=== PATIENT | female | born 1950 | race Caucasian/White ===

== ENCOUNTER → 2018-01-01 | Outpatient (CLI) | payer MEDICARE ==
--- NOTE | 2018-01-02 08:42 | ECHOF ---
Referral Reason:R60.9 Edema, unspecified MEASUREMENTS -------- HEIGHT: 162.6 cm WEIGHT: 61.2 kg BP: 135/77 IVSd: 1.0 cm (0.6 - 1.1) LVIDd: 3.7 cm (3.9 - 5.3) LVPWd: 1.1 cm (0.6 - 1.1) IVSs: 1.1 cm LVIDs: 2.2 cm LVPWs: 1.2 cm LAESV Index (A-L): 19.92 ml/m Ao Diam: 2.0 cm (2.0 - 3.7) AV Cusp: 1.2 cm (1.5 - 2.6) LA Diam: 2.0 cm (2.7 - 3.8) MV EXCURSION: 17.310 mm (> 18.000) MV EF SLOPE: 117 mm/s (70 - 150) EPSS: 0.8 cm MV E Jonas: 1.38 m/s MV DecT: 168 ms MV A Jonas: 0.98 m/s MV E/A Ratio: 1.40 RAP: 5.00 mmHg RVSP: 24.02 mmHg FINDINGS -------- Sinus rhythm. This was a technically good study. The left ventricular size is normal. Left ventricular wall thickness is normal. Overall left vent ricular systolic function is normal with, an EF between 55 - 60 %. The right ventricle is normal in size and function. Normal LA size by volume 22+/-6 ml/m2. The right atrium is normal in size. The aortic valve is trileaflet, and appears structurally normal. No aortic stenosis or regurgitation. Moderate mitral regurgitation is present , predominately a posteriorly directed jet. Trace tricuspid regurgitation present. The right ventricular systolic pressure, as measured by Dopp ler, is 24.02mmHg. Pulmonic valve appears structurally normal. The aortic root size is normal. Normal inferior vena cava with normal inspiratory collapse consistent with estimated right atrial pre ssure of 5 mmHg. The pericardium is normal. CONCLUSIONS -------- 1. Sinus rhythm. 2. This was a technically good study. 3. The left ventricular size is normal. 4. Left ventricular wall thickness is normal. 5. Overall left ventricular systolic function is normal with, an EF between 55 - 60 %. 6. The right ventricle is normal in size and function. 7. Normal LA size by volume 22+/-6 ml/m2. 8. The right atrium is normal in size. 9. The aortic valve is trileaflet, and appears structurally normal. No aortic stenosis or regurgitati on. 10. Moderate mitral regurgitation is present. 11. , predominately a posteriorly directed jet. 12. Trace tricuspid regurgitation present. 13. The right ventricular systolic pressure, as measured by Doppler, is 24.02mmHg. 14. Pulmonic valve appears structurally normal. 15. The aortic root size is normal. 16. Normal inferior vena cava with normal inspiratory collapse consistent with estimated right atrial pressure of 5 mmHg. 17. The pericardium is normal. PALM GATHERER: Ivory Howell RDCS
== END | disposition home or self-care (01) ==
LOC: RADECHMAIN 15:07
PROVIDERS: ATTEND Family Medicine
DX: I34.0 Nonrheumatic mitral (valve) insufficiency (principal); R60.9 Edema, unspecified
CPT/HCPCS: 93306

== ENCOUNTER → 2019-04-15 | Outpatient (CLI) | payer MEDICARE ==
--- NOTE | 2019-04-19 11:33 | MM ---
Reason for exam: screening (asymptomatic). Last mammogram was performed 12 years and 3 months ago. History: Patient is postmenopausal. Physical Findings: A clinical breast exam by your physician is recommended on an annual basis and results should be correlated with mammographic findings. MG 3D Screening Mammo W/Cad Bilateral CC and MLO view(s) were taken. Prior study comparison: March 26, 2018, mammogram, performed at [facility]. March 25, 2017, mammogram, performed at [facility]. December 19, 2015, mammogram, performed at [facility]. The breast tissue is heterogeneously dense. This may lower the sensitivity of mammography. There are benign appearing round calcifications bilaterally. There is no discrete abnormality. ASSESSMENT: Benign, BI-RAD 2 RECOMMENDATION: Routine screening mammogram of both breasts in 1 year.
== END | disposition home or self-care (01) ==
LOC: RADMAMWWP 09:06
PROVIDERS: ATTEND Family Medicine
DX: Z12.31 Encounter for screening mammogram for malignant neoplasm of breast (principal)
CPT/HCPCS: 77063; 77067

== ENCOUNTER → 2020-06-08 | Outpatient (CLI) | payer MEDICARE ==
--- NOTE | 2020-06-12 07:40 | MM ---
Reason for exam: screening (asymptomatic). Last mammogram was performed 1 year and 2 months ago. History: Patient is postmenopausal. Took hormonal contraceptives for 3 years. Took estrogen for 2 years. Taking other hormone for 5 years. Physical Findings: A clinical breast exam by your physician is recommended on an annual basis and results should be correlated with mammographic findings. MG 3D Screening Mammo W/Cad Bilateral CC and MLO view(s) were taken. Prior study comparison: April 15, 2019, bilateral MG 3d screening mammo w/cad. March 26, 2018, mammogram, performed at [facility]. The breast tissue is heterogeneously dense. This may lower the sensitivity of mammography. No significant changes when compared with prior studies. ASSESSMENT: Negative, BI-RAD 1 RECOMMENDATION: Routine screening mammogram of both breasts in 1 year.
== END | disposition home or self-care (01) ==
LOC: RADMAMWWP 12:46
PROVIDERS: ATTEND Obstetrics & Gynecology
DX: Z12.31 Encounter for screening mammogram for malignant neoplasm of breast (principal)
CPT/HCPCS: 77063; 77067

== ENCOUNTER → 2021-09-16 | Outpatient (CLI) | payer MEDICARE ==
--- NOTE | 2021-09-17 11:07 | MM ---
Reason for exam: screening (asymptomatic). Last mammogram was performed 1 year and 3 months ago. History: Patient is postmenopausal. Took hormonal contraceptives for 3 years. Took estrogen for 2 years. Taking other hormone for 5 years. Physical Findings: A clinical breast exam by your physician is recommended on an annual basis and results should be correlated with mammographic findings. MG 3D Screening Mammo W/Cad Bilateral CC and MLO view(s) were taken. Prior study comparison: June 08, 2020, bilateral MG 3d screening mammo w/cad. April 15, 2019, bilateral MG 3d screening mammo w/cad. There are benign appearing round calcifications bilaterally. There is no discrete abnormality. ASSESSMENT: Benign, BI-RAD 2 RECOMMENDATION: Routine screening mammogram of both breasts in 1 year.
== END | disposition home or self-care (01) ==
LOC: RADMAMWWP 14:37
PROVIDERS: ATTEND Family Medicine
DX: Z12.31 Encounter for screening mammogram for malignant neoplasm of breast (principal)
CPT/HCPCS: 77063; 77067

== ENCOUNTER 2022-03-03 15:38 | Emergency (ER) | payer MEDICARE ==
[2022-03-03 15:51] VITALS: TEMP 97.8
[2022-03-03] MEDS ORDERED: SODIUM CHLORIDE 0.9% 1,000 ML IV STA (16:49)
--- NOTE | 2022-03-03 16:52 | ED ---
General Adult HPI - General Chief complaint: Dizziness Stated complaint: Light Headedness, High Blood Pressure, Heart Histo Time Seen by Provider: 03/03/22 16:19 Source: patient, family, RN notes reviewed Mode of arrival: wheelchair Limitations: no limitations - History of Present Illness Initial comments: Patient is a pleasant 71-year-old female presenting to the emergency department with concerns for high blood pressure. Patient did have some lightheadedness 2 days ago. Patient had lightheadedness again this morning. Patient check blood pressure at home at 200/103. This was several hours after her medication. Patient essentially feels normal at this time. No other complaints. Her pressure currently on the monitor is 184/84. No chest pain. No weakness. Patient does have history of atrial fibrillation and states occasionally has palpitations. Patient is on eliquis for this. - Related Data Home Medications Medication Instructions Recorded Confirmed Aspirin 81 mg PO DAILY 06/24/15 03/03/22 Ginkgo Biloba 1 tab PO DAILY 06/06/16 03/03/22 Green Gold Nutrition (Mineral 1 tab PO DAILY 06/06/16 03/03/22 /Vitamin Supplement) Herbal Laxative 1 tab PO DAILY PRN 06/06/16 03/03/22 Chamisal-3 Fatty Acids/Fish Oil [Fish 1 cap PO DAILY 06/06/16 03/03/22 Oil 1,000 mg Softgel] Ubidecarenone [Co Q-10] 100 mg PO DAILY 06/06/16 03/03/22 Nitroglycerin [Nitromist] 1 spray SL Q5M PRN 06/09/16 03/03/22 Apixaban [Eliquis] 5 mg PO BID 03/03/22 03/03/22 Magnesium Taurate 400 mg PO BID 03/03/22 03/03/22 Metoprolol Tartrate [Lopressor] 12.5 mg PO BID 03/03/22 03/03/22 Nitroglycerin Sl Tabs [Nitrostat] 0.4 mg SUBLINGUAL Q5M PRN 03/03/22 03/03/22 Ranolazine [Ranexa] 1,000 mg PO Q12HR 03/03/22 03/03/22 Red Yeast Rice 600 mg PO DAILY 03/03/22 03/03/22 Turmeric Root Extract [Turmeric] 500 mg PO DAILY 03/03/22 03/03/22 clonazePAM [KlonoPIN] 0.25 mg PO HS PRN 03/03/22 03/03/22 Allergies Allergy/AdvReac Type Severity Reaction Status Date / Time latex Allergy Intermediate Rash/Hives Verified 03/03/22 17:32 Review of Systems ROS Statement: Those systems with pertinent positive or pertinent negative responses have been documented in the HPI. ROS Other: All systems not noted in ROS Statement are negative. Constitutional: Denies: fever Eyes: Denies: eye pain ENT: Denies: ear pain Respiratory: Denies: cough, dyspnea Cardiovascular: Denies: chest pain Endocrine: Denies: fatigue Gastrointestinal: Denies: abdominal pain Genitourinary: Denies: dysuria Musculoskeletal: Denies: back pain Skin: Denies: rash Neurological: Denies: weakness Past Medical History Past Medical History: Atrial Fibrillation, Coronary Artery Disease (CAD), Hyperlipidemia, Hypertension, Myocardial Infarction ([place]), Osteoarthritis (OA) Additional Past Medical History / Comment(s): CHRONIC HEADACHES, CHRONIC CONSTIPATION, CARPAL TUNNEL WITH RECENT STEROID INJECTION. , STATES OCCASIONAL TIGHTNESS IN HER CHEST WITH EXERCISE., SEE CARDIOLOGY H & P. Last Myocardial Infarction Date:: 2005 History of Any Multi-Drug Resistant Organisms: None Reported Past Surgical History: Heart Catheterization With Stent Past Anesthesia/Blood Transfusion Reactions: No Reported Reaction Date of Last Stent Placement:: 2005 Past Psychological History: No Psychological Hx Reported Smoking Status: Former smoker Past Alcohol Use History: None Reported Past Drug Use History: None Reported - Past Family History Father Family Medical History: Coronary Artery Disease (CAD) Additional Family Medical History / Comment(s): Heart disease Mother Family Medical History: Coronary Artery Disease (CAD), Diabetes Mellitus Additional Family Medical History / Comment(s): heart disease Brother(s) Family Medical History: Cancer, Coronary Artery Disease (CAD) Additional Family Medical History / Comment(s): PROSTATE CANCER Sister(s) Family Medical History: No Reported History Daughter(s) Family Medical History: No Reported History Son(s) Family Medical History: No Reported History Additional Family Medical History / Comment(s): Patient has 11 grandkids. General Exam Limitations: no limitations General appearance: alert, in no apparent distress Head exam: Present: normocephalic Eye exam: Present: normal appearance Neck exam: Present: normal inspection Respiratory exam: Present: normal lung sounds bilaterally Cardiovascular Exam: Present: irregular rhythm, normal heart sounds. Absent: bradycardia, tachycardia Expanded Peripheral pulses: 2+: Radial (R), Radial (L), Posterior Tibialis (R), Posterior Tibialis (L) GI/Abdominal exam: Present: soft. Absent: tenderness Extremities exam: Present: normal inspection. 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 High concern for uncontrolled A. fib. Repeat EKG ordered. 03/03/22 16:56 Repeat EKG shows sinus rhythm with rate 75. First 3 AV block CA 218. QRS 96. QT 419. QTC 448. Normal axis. Septal Q waves. No acute ST change. 03/03/22 18:59 EKG #3 shows sinus rhythm at 67. For screening AV block CA 202. QRS 92. QT 436. QTc 441. Normal axis. Septal Q waves. No acute ST change. EKG Findings - EKG Comments: EKG Findings:: Sinus rhythm rate of 67. CA 190. QRS 92. QT or 14. QTC 4:30. Normal axis. Septal Q waves. No acute ST change. Medical Decision Making - Medical Decision Making Patient reevaluated and resting comfortably in bed, retching symptom-free. Patient and family updated on results and need for close follow-up. - Lab Data Result diagrams: 03/03/22 16:17 03/03/22 16:17 Lab Results 03/03/22 03/03/22 03/03/22 Range/Units 16:17 16:17 16:17 WBC 7.4 (3.8-10.6) k/uL RBC 3.86 (3.80-5.40) m/uL Hgb 12.0 (11.4-16.0) gm/dL Hct 36.4 (34.0-46.0) % MCV 94.3 (80.0-100.0) fL MCH 31.1 (25.0-35.0) pg MCHC 33.0 (31.0-37.0) g/dL RDW 12.2 (11.5-15.5) % Plt Count 234 (150-450) k/uL MPV 8.2 Neutrophils % 72 % Lymphocytes % 17 % Monocytes % 7 % Eosinophils % 1 % Basophils % 0 % Neutrophils # 5.3 (1.3-7.7) k/uL Lymphocytes # 1.3 (1.0-4.8) k/uL Monocytes # 0.5 (0-1.0) k/uL Eosinophils # 0.1 (0-0.7) k/uL Basophils # 0.0 (0-0.2) k/uL PT 11.0 (9.0-12.0) sec INR 1.0 (<1.2) APTT 34.7 H (22.0-30.0) sec Sodium 131 L (137-145) mmol/L Potassium 4.4 (3.5-5.1) mmol/L Chloride 99 (98-107) mmol/L Carbon Dioxide 22 (22-30) mmol/L Anion Gap 10 mmol/L BUN 8 (7-17) mg/dL Creatinine 0.62 (0.52-1.04) mg/dL Est GFR (CKD-EPI)AfAm >90 (>60 ml/min/1.73 sqM) Est GFR (CKD-EPI)NonAf 90 (>60 ml/min/1.73 sqM) Glucose 98 (74-99) mg/dL Calcium 9.0 (8.4-10.2) mg/dL Magnesium 1.8 (1.6-2.3) mg/dL Total Bilirubin 1.0 (0.2-1.3) mg/dL AST 33 (14-36) U/L ALT 16 (4-34) U/L Alkaline Phosphatase 54 (38-126) U/L Troponin I (0.000-0.034) ng/mL Total Protein 7.4 (6.3-8.2) g/dL Albumin 4.5 (3.5-5.0) g/dL TSH 1.790 (0.465-4.680) mIU/L Free T4 1.11 (0.78-2.19) ng/dL Free T3 pg/mL 3.1 (2.8-5.3) pg/ml 03/03/22 Range/Units 16:57 WBC (3.8-10.6) k/uL RBC (3.80-5.40) m/uL Hgb (11.4-16.0) gm/dL Hct (34.0-46.0) % MCV (80.0-100.0) fL MCH (25.0-35.0) pg MCHC (31.0-37.0) g/dL RDW (11.5-15.5) % Plt Count (150-450) k/uL MPV Neutrophils % % Lymphocytes % % Monocytes % % Eosinophils % % Basophils % % Neutrophils # (1.3-7.7) k/uL Lymphocytes # (1.0-4.8) k/uL Monocytes # (0-1.0) k/uL Eosinophils # (0-0.7) k/uL Basophils # (0-0.2) k/uL PT (9.0-12.0) sec INR (<1.2) APTT (22.0-30.0) sec Sodium (137-145) mmol/L Potassium (3.5-5.1) mmol/L Chloride (98-107) mmol/L Carbon Dioxide (22-30) mmol/L Anion Gap mmol/L BUN (7-17) mg/dL Creatinine (0.52-1.04) mg/dL Est GFR (CKD-EPI)AfAm (>60 ml/min/1.73 sqM) Est GFR (CKD-EPI)NonAf (>60 ml/min/1.73 sqM) Glucose (74-99) mg/dL Calcium (8.4-10.2) mg/dL Magnesium (1.6-2.3) mg/dL Total Bilirubin (0.2-1.3) mg/dL AST (14-36) U/L ALT (4-34) U/L Alkaline Phosphatase (38-126) U/L Troponin I <0.012 (0.000-0.034) ng/mL Total Protein (6.3-8.2) g/dL Albumin (3.5-5.0) g/dL TSH (0.465-4.680) mIU/L Free T4 (0.78-2.19) ng/dL Free T3 pg/mL (2.8-5.3) pg/ml Disposition Clinical Impression: Lightheadedness, Hypertension Disposition: HOME SELF-CARE Condition: Stable Instructions (If sedation given, give patient instructions): Dizziness (ED), Hypertension (ED) Additional Instructions: Please follow-up with primary care physician in the next couple days for recheck. Please also follow-up with her picture enlarger. Return for increased bl ood pressure, lightheadedness, dizziness, weakness or confusion, worsening or changing symptoms, chest pain, or any other concerns. Is patient prescribed a controlled substance at d/c from ED?: No Referrals: Lizzy Mackey DO [Primary Care Provider] - 1-2 days Time of Disposition: 19:06
[2022-03-03 17:06] LABS: Basophils % (A) 0 %; Eosinophils # (A) 0.1 k/uL (0-0.7); Eosinophils % (A) 1 %; HCT 36.4 % (34.0-46.0); Lymphocytes # (A) 1.3 k/uL (1.0-4.8); Lymphocytes % (A) 17 %; MCH 31.1 pg (25.0-35.0); MCV 94.3 fL (80.0-100.0); Mean Platelet Volume 8.2; Monocytes # (A) 0.5 k/uL (0-1.0); Monocytes % (A) 7 %; Neutrophils # (A) 5.3 k/uL (1.3-7.7); Neutrophils % (A) 72 %; Platelet Count 234 k/uL (150-450); RBC 3.86 m/uL (3.80-5.40); RDW 12.2 % (11.5-15.5); WBC 7.4 k/uL (3.8-10.6)
[2022-03-03 17:15] LABS: ALT 16 U/L (4-34); AST 33 U/L (14-36); African American GFR (CKD) >90 (>60 ml/min/1.73 sqM); Albumin 4.5 g/dL (3.5-5.0); Alkaline Phosphatase 54 U/L (38-126); Anion Gap 10 mmol/L; Blood Urea Nitrogen 8 mg/dL (7-17); Carbon Dioxide 22 mmol/L (22-30); Chloride 99 mmol/L (98-107); Glucose 98 mg/dL (74-99); Magnesium 1.8 mg/dL (1.6-2.3); Non-African American GFR(CKD) 90 (>60 ml/min/1.73 sqM); Potassium 4.4 mmol/L (3.5-5.1); Sodium 131 mmol/L (137-145); Total Protein 7.4 g/dL (6.3-8.2)
[2022-03-03 17:25] LABS: Partial Thromboplastin Time 34.7 sec (22.0-30.0)
[2022-03-03 17:31] LABS: T4, Free (Free Thyroxine) 1.11 ng/dL (0.78-2.19)
--- NOTE | 2022-03-03 17:51 | XR ---
EXAMINATION TYPE: XR chest 2V DATE OF EXAM: 03/03/2022 COMPARISON: June 24, 2015 HISTORY: Dysrhythmia TECHNIQUE: FINDINGS: Heart is normal. Lungs are clear. Diaphragm is normal. There are chest leads. Bony thorax i s intact IMPRESSION: Normal chest. No change.
[2022-03-03 18:55] VITALS: BP 177/79; PULSE 62; RESP 18
== END 2022-03-03 19:12 | disposition home or self-care (01) ==
LOC: EC 15:38
DX: R42 Dizziness and giddiness (principal); I10 Essential (primary) hypertension; I25.10 Atherosclerotic heart disease of native coronary artery without angina pectoris; Z79.82 Long term (current) use of aspirin; I25.2 Old myocardial infarction; Z87.891 Personal history of nicotine dependence; Z91.040 Latex allergy status
CPT/HCPCS: 36415; 71046; 80053; 83735; 84439; 84443; 84481; 84484; 85025; 85610; 85730; 93005; 96360; 96361; 99284

== ENCOUNTER 2022-04-20 03:52 | Inpatient (IN) | payer MEDICARE ==
[2022-04-20] MEDS ORDERED: KETOROLAC 15 MG/ML 1 ML VIAL IVP STA (03:56)
[2022-04-20] MEDS ORDERED: SODIUM CHLORIDE 0.9% 1,000 ML IV STA (03:56)
[2022-04-20] MEDS ORDERED: ACETAMINOPHEN TAB 500 MG TAB PO STA (03:56)
[2022-04-20] MEDS ORDERED: ALBUTEROL HFA INHALER INHALATION STA (03:56)
--- NOTE | 2022-04-20 03:57 | ED ---
Recheck HPI - General Stated Complaint: covid+, Weakness Time Seen by Provider: 04/20/22 03:55 Source: RN notes reviewed, old records reviewed Mode of arrival: EMS Limitations: altered mental status, physical limitation - History of Present Illness Initial Comments: This is a 71-year-old female with known coronavirus diagnosis. His been getting increasingly weak at home. Patient unable to eat and drink unable to get out of bed. She has had persistent fevers and again has known coronavirus diagnosis. No prior diagnosis of coronavirus ointment of this recent attack patient does have history of heart disease MD Complaint: abnormal lab (coronavirus) -: days(s) Returns Today for: Called Because of Abnormal Lab/Test, persistent/worsening pain related to initial visit Symptoms Since Prior Visit: worsening pain, fever Context: planned re-check Associated Symptoms: shortness of breath, malaise, nausea, abdominal pain Treatments Prior to Arrival: other medications - Related Data Home Medications Medication Instructions Recorded Confirmed Aspirin 81 mg PO DAILY 06/24/15 04/20/22 Ginkgo Biloba 1 tab PO DAILY 06/06/16 04/20/22 Green Gold Nutrition (Mineral 1 tab PO DAILY 06/06/16 04/20/22 /Vitamin Supplement) Herbal Laxative 1 tab PO DAILY PRN 06/06/16 04/20/22 [place]-3 Fatty Acids/Fish Oil [Fish 1 cap PO DAILY 06/06/16 04/20/22 Oil 1,000 mg Softgel] Ubidecarenone [Co Q-10] 100 mg PO DAILY 06/06/16 04/20/22 Nitroglycerin [Nitromist] 1 spray SL Q5M PRN 06/09/16 04/20/22 Apixaban [Eliquis] 5 mg PO BID 03/03/22 04/20/22 Magnesium Taurate 400 mg PO BID 03/03/22 04/20/22 Metoprolol Tartrate [Lopressor] 12.5 mg PO BID 03/03/22 04/20/22 Nitroglycerin Sl Tabs [Nitrostat] 0.4 mg SL Q5M PRN 03/03/22 04/20/22 Ranolazine [Ranexa] 1,000 mg PO Q12HR 03/03/22 04/20/22 Red Yeast Rice 600 mg PO DAILY 03/03/22 04/20/22 Turmeric Root Extract [Turmeric] 500 mg PO DAILY 03/03/22 04/20/22 clonazePAM [KlonoPIN] 0.25 mg PO HS PRN 03/03/22 04/20/22 Nirmatrelvir/Ritonavir [Paxlovid 3 tab PO BID 04/20/22 04/20/22 Co-Pack (Eua)] Ondansetron [Zofran] 4 mg PO TID PRN 04/20/22 04/20/22 Rosuvastatin Calcium [Crestor] 5 mg PO DAILY 04/20/22 04/20/22 Allergies Allergy/AdvReac Type Severity Reaction Status Date / Time latex Allergy Intermediate Rash/Hives Verified 04/20/22 12:20 Review of Systems ROS Statement: Those systems with pertinent positive or pertinent negative responses have been documented in the HPI. ROS Other: All systems not noted in ROS Statement are negative. Past Medical History Past Medical History: Atrial Fibrillation, Coronary Artery Disease (CAD), Hyperl ipidemia, Hypertension, Myocardial Infarction ([place]), Osteoarthritis (OA) Additional Past Medical History / Comment(s): CHRONIC HEADACHES, CHRONIC CONSTIPATION, CARPAL TUNNEL WITH RECENT STEROID INJECTION. , STATES OCCASIONAL TIGHTNESS IN HER CHEST WITH EXERCISE., SEE CARDIOLOGY H & P. Last Myocardial Infarction Date:: 2005 History of Any Multi-Drug Resistant Organisms: None Reported Past Surgical History: Heart Catheterization With Stent Past Anesthesia/Blood Transfusion Reactions: No Reported Reaction Date of Last Stent Placement:: 2005 Past Psychological History: No Psychological Hx Reported Smoking Status: Former smoker Past Alcohol Use History: None Reported Past Drug Use History: None Reported - Past Family History Father Family Medical History: Coronary Artery Disease (CAD) Additional Family Medical History / Comment(s): Heart disease Mother Family Medical History: Coronary Artery Disease (CAD), Diabetes Mellitus Additional Family Medical History / Comment(s): heart disease Brother(s) Family Medical History: Cancer, Coronary Artery Disease (CAD) Additional Family Medical History / Comment(s): PROSTATE CANCER Sister(s) Family Medical History: No Reported History Daughter(s) Family Medical History: No Reported History Son(s) Family Medical History: No Reported History Additional Family Medical History / Comment(s): Patient has 11 grandkids. General Exam Limitations: altered mental status General appearance: alert, lethargic, in distress, cachectic Head exam: Present: atraumatic, normocephalic, normal inspection Eye exam: Present: normal appearance, PERRL, EOMI. Absent: scleral icterus, conjunctival injection, periorbital swelling ENT exam: Present: normal exam, mucous membranes moist Neck exam: Present: normal inspection. Absent: tenderness, meningismus, lymphadenopathy Respiratory exam: Present: normal lung sounds bilaterally. Absent: respiratory distress, wheezes, rales, rhonchi, stridor Cardiovascular Exam: Present: regular rate, normal rhythm, normal heart sounds. Absent: systolic murmur, diastolic murmur, rubs, gallop, clicks GI/Abdominal exam: Present: soft, normal bowel sounds. Absent: distended, tenderness, guarding, rebound, rigid Extremities exam: Present: normal inspection, full ROM, normal capillary refill. Absent: tenderness, pedal edema, joint swelling, calf tenderness Back exam: Present: normal inspection Neurological exam: Present: alert, oriented X3, CN II-XII intact Psychiatric exam: Present: normal affect, normal mood Skin exam: Present: warm, dry, intact, normal color. Absent: rash Course Vital Signs 04/20/22 04/20/22 04/20/22 03:56 08:08 08:37 Temperature 97.3 F L Pulse Rate 58 L 61 60 Pulse Rate [ Pulse Oximetery ] Respiratory 16 20 24 Rate Blood Pressure 199/97 174/102 174/82 Blood Pressure [Right Arm] O2 Sat by Pulse 96 94 L 95 Oximetry 04/20/22 10:15 Temperature 98.0 F Pulse Rate Pulse Rate [ 69 Pulse Oximetery ] Respiratory Rate Blood Pressure Blood Pressure 193/89 [Right Arm] O2 Sat by Pulse 97 Oximetry - Reevaluation(s) Reevaluation #1: 04/20/22 Medical record is reviewed Reevaluation #2: 04/20/22 Patient still feels currently unwell severely weak unable to get up unable to ambulate Reevaluation #3: 04/20/22 Patient does have altered mental status but is informed of results here in the ER - Consultations Consultation #1: Spoke with sound who agree to admit this patient Medical Decision Making - Medical Decision Making 71 female severe weakness with known coronavirus diagnosis. Patient is severely hyponatremic and malnourished patient will be admitted for hydration and monitoring of lab values as well as she does have current coronavirus pneumonia - Lab Data Result diagrams: 04/20/22 05:25 04/20/22 05:25 Lab Results 04/20/22 04/20/22 04/20/22 Range/Units 05:25 05:25 05:25 WBC 2.2 L (3.8-10.6) k/uL RBC 3.90 (3.80-5.40) m/uL Hgb 12.0 (11.4-16.0) gm/dL Hct 36.0 (34.0-46.0) % MCV 92.3 (80.0-100.0) fL MCH 30.8 (25.0-35.0) pg MCHC 33.3 (31.0-37.0) g/dL RDW 12.0 (11.5-15.5) % Plt Count 152 (150-450) k/uL MPV 8.3 Neutrophils % 57 % Lymphocytes % 30 % Monocytes % 10 % Eosinophils % 0 % Basophils % 1 % Neutrophils # 1.3 (1.3-7.7) k/uL Lymphocytes # 0.7 L (1.0-4.8) k/uL Monocytes # 0.2 (0-1.0) k/uL Eosinophils # 0.0 (0-0.7) k/uL Basophils # 0.0 (0-0.2) k/uL Sodium 119 L* (137-145) mmol/L Potassium 4.0 (3.5-5.1) mmol/L Chloride 87 L (98-107) mmol/L Carbon Dioxide 22 (22-30) mmol/L Anion Gap 10 mmol/L BUN 7 (7-17) mg/dL Creatinine 0.57 (0.52-1.04) mg/dL Est GFR (CKD-EPI)AfAm >90 (>60 ml/min/1.73 sqM) Est GFR (CKD-EPI)NonAf >90 (>60 ml/min/1.73 sqM) Glucose 121 H (74-99) mg/dL Plasma Lactic Acid Kali 1.2 (0.7-2.0) mmol/L Calcium 8.2 L (8.4-10.2) mg/dL Magnesium 1.7 (1.6-2.3) mg/dL Ferritin (10.0-291.0) ng/mL Total Bilirubin 0.7 (0.2-1.3) mg/dL AST 38 H (14-36) U/L ALT 21 (4-34) U/L Alkaline Phosphatase 54 (38-126) U/L Lactate Dehydrogenase 399 (313-618) U/L Troponin I (0.000-0.034) ng/mL C-Reactive Protein <0.5 (<1.0) mg/dL NT-Pro-B Natriuret Pep pg/mL Total Protein 6.7 (6.3-8.2) g/dL Albumin 4.2 (3.5-5.0) g/dL Procalcitonin (0.02-0.09) ng/mL 04/20/22 04/20/22 04/20/22 Range/Units 05:25 05:25 05:25 WBC (3.8-10.6) k/uL RBC (3.80-5.40) m/uL Hgb (11.4-16.0) gm/dL Hct (34.0-46.0) % MCV (80.0-100.0) fL MCH (25.0-35.0) pg MCHC (31.0-37.0) g/dL RDW (11.5-15.5) % Plt Count (150-450) k/uL MPV Neutrophils % % Lymphocytes % % Monocytes % % Eosinophils % % Basophils % % Neutrophils # (1.3-7.7) k/uL Lymphocytes # (1.0-4.8) k/uL Monocytes # (0-1.0) k/uL Eosinophils # (0-0.7) k/uL Basophils # (0-0.2) k/uL Sodium (137-145) mmol/L Potassium (3.5-5.1) mmol/L Chloride (98-107) mmol/L Carbon Dioxide (22-30) mmol/L Anion Gap mmol/L BUN (7-17) mg/dL Creatinine (0.52-1.04) mg/dL Est GFR (CKD-EPI)AfAm (>60 ml/min/1.73 sqM) Est GFR (CKD-EPI)NonAf (>60 ml/min/1.73 sqM) Glucose (74-99) mg/dL Plasma Lactic Acid Kali (0.7-2.0) mmol/L Calcium (8.4-10.2) mg/dL Magnesium (1.6-2.3) mg/dL Ferritin (10.0-291.0) ng/mL Total Bilirubin (0.2-1.3) mg/dL AST (14-36) U/L ALT (4-34) U/L Alkaline Phosphatase (38-126) U/L Lactate Dehydrogenase (313-618) U/L Troponin I <0.012 (0.000-0.034) ng/mL C-Reactive Protein (<1.0) mg/dL NT-Pro-B Natriuret Pep 1400 pg/mL Total Protein (6.3-8.2) g/dL Albumin (3.5-5.0) g/dL Procalcitonin 0.03 (0.02-0.09) ng/mL 04/20/22 Range/Units 05:25 WBC (3.8-10.6) k/uL RBC (3.80-5.40) m/uL Hgb (11.4-16.0) gm/dL Hct (34.0-46.0) % MCV (80.0-100.0) fL MCH (25.0-35.0) pg MCHC (31.0-37.0) g/dL RDW (11.5-15.5) % Plt Count (150-450) k/uL MPV Neutrophils % % Lymphocytes % % Monocytes % % Eosinophils % % Basophils % % Neutrophils # (1.3-7.7) k/uL Lymphocytes # (1.0-4.8) k/uL Monocytes # (0-1.0) k/uL Eosinophils # (0-0.7) k/uL Basophils # (0-0.2) k/uL Sodium (137-145) mmol/L Potassium (3.5-5.1) mmol/L Chloride (98-107) mmol/L Carbon Dioxide (22-30) mmol/L Anion Gap mmol/L BUN (7-17) mg/dL Creatinine (0.52-1.04) mg/dL Est GFR (CKD-EPI)AfAm (>60 ml/min/1.73 sqM) Est GFR (CKD-EPI)NonAf (>60 ml/min/1.73 sqM) Glucose (74-99) mg/dL Plasma Lactic Acid Kali (0.7-2.0) mmol/L Calcium (8.4-10.2) mg/dL Magnesium (1.6-2.3) mg/dL Ferritin 403.0 H (10.0-291.0) ng/mL Total Bilirubin (0.2-1.3) mg/dL AST (14-36) U/L ALT (4-34) U/L Alkaline Phosphatase (38-126) U/L Lactate Dehydrogenase 186 (313-618) U/L Troponin I (0.000-0.034) ng/mL C-Reactive Protein <0.30 (<1.0) mg/dL NT-Pro-B Natriuret Pep pg/mL Total Protein (6.3-8.2) g/dL Albumin (3.5-5.0) g/dL Procalcitonin (0.02-0.09) ng/mL - EKG Data -: EKG Interpreted by Me (EKG is sinus bradycardia 55 NH 198 QRS 125 QTc 510) - Radiology Data Radiology results: report reviewed (Chest x-rays positive covert and pneumonia), image reviewed Disposition Clinical Impression: Coronavirus infection, Dehydration, Pneumonia due to COVID-19 virus, Weakness Disposition: ADMITTED IP TO THIS HOSP Condition: Fair Is patient prescribed a controlled substance at d/c from ED?: No
--- NOTE | 2022-04-20 04:55 | XR ---
EXAMINATION TYPE: XR chest 1V portable DATE OF EXAM: 04/20/2022 COMPARISON: 03/03/2022 HISTORY: Cough and congestion TECHNIQUE: FINDINGS: Heart is normal. There is some mild pulmonary interstitial edema. No pleural effusion. Ther e are no hilar masses. IMPRESSION: There is some pulmonary interstitial edema which is new compared to the old exam and coul d be acute pneumonia.
[2022-04-20] MEDS ORDERED: DEXAMETHASONE SOD PHOSPHATE 10 MG/ML 1 ML VIAL IVP STA (05:32)
[2022-04-20] MEDS ORDERED: NALOXONE 0.4 MG/ML 1 ML VIAL IV PRN (05:32)
[2022-04-20] MEDS ORDERED: ONDANSETRON 4 MG/2 ML VIAL IVP PRN (05:32)
[2022-04-20] MEDS ORDERED: ACETAMINOPHEN TAB 325 MG TAB PO PRN (05:32)
[2022-04-20] MEDS ORDERED: IBUPROFEN 400 MG TAB PO PRN (05:32)
[2022-04-20] MEDS ORDERED: MORPHINE SULFATE 4 MG/ML SYRINGE IV PRN (05:32)
[2022-04-20] MEDS ORDERED: LORazepam 2 MG/ML INJ IV PRN (05:32)
[2022-04-20 05:43] LABS: Basophils % (A) 1 %; Eosinophils % (A) 0 %; Lymphocytes # (A) 0.7 k/uL (1.0-4.8); Lymphocytes % (A) 30 %; MCH 30.8 pg (25.0-35.0); MCHC 33.3 g/dL (31.0-37.0); MCV 92.3 fL (80.0-100.0); Mean Platelet Volume 8.3; Monocytes # (A) 0.2 k/uL (0-1.0); Monocytes % (A) 10 %; Neutrophils # (A) 1.3 k/uL (1.3-7.7); Neutrophils % (A) 57 %; Platelet Count 152 k/uL (150-450); WBC 2.2 k/uL (3.8-10.6)
[2022-04-20 05:59] LABS: ALT 21 U/L (4-34); AST 38 U/L (14-36); African American GFR (CKD) >90 (>60 ml/min/1.73 sqM); Albumin 4.2 g/dL (3.5-5.0); Alkaline Phosphatase 54 U/L (38-126); Anion Gap 10 mmol/L; Blood Urea Nitrogen 7 mg/dL (7-17); C Reactive Protein <0.5 mg/dL (<1.0); Calcium 8.2 mg/dL (8.4-10.2); Carbon Dioxide 22 mmol/L (22-30); Chloride 87 mmol/L (98-107); Glucose 121 mg/dL (74-99); LDH 399 U/L (313-618); Magnesium 1.7 mg/dL (1.6-2.3); Non-African American GFR(CKD) >90 (>60 ml/min/1.73 sqM); Total Bilirubin 0.7 mg/dL (0.2-1.3); Total Protein 6.7 g/dL (6.3-8.2)
[2022-04-20 06:04] LABS: Sodium 119 mmol/L (137-145)
[2022-04-20] MEDS ORDERED: SODIUM CHLORIDE 0.9% 1,000 ML IV ONE (06:04)
[2022-04-20 06:15] LABS: INR 1.1 (<1.2); Partial Thromboplastin Time 49.9 sec (22.0-30.0); Prothrombin Time 12.2 sec (9.0-12.0)
[2022-04-20] MEDS: DEXAMETHASONE SOD PHOSPHATE 10 MG/ML 1 ML VIAL IVP SCH (08:35)
[2022-04-20] MEDS: PANTOPRAZOLE 40 MG/10 ML VIAL IV SCH (08:35)
[2022-04-20] MEDS: SODIUM CHLORIDE 0.9% 1,000 ML IV SCH (09:18)
[2022-04-20] MEDS ORDERED: ENOXAPARIN 30 MG/0.3 ML SYRINGE SQ SCH (10:00)
[2022-04-20] MEDS: ASCORBIC ACID 500 MG TAB PO SCH (10:54)
[2022-04-20] MEDS: METOPROLOL TARTRATE 12.5 MG TAB PO SCH ×2 (10:54→20:43)
[2022-04-20] MEDS: ZINC SULFATE 220 MG CAP PO SCH (10:55)
[2022-04-20] MEDS: CHOLECALCIFEROL 25 MCG (1000 IU) TABLET PO SCH (10:55)
[2022-04-20] MEDS: ASPIRIN 81 MG PO SCH (10:55)
[2022-04-20 11:15] LABS: Glucose,Whole Blood 135 mg/dL (75-99)
--- NOTE | 2022-04-20 12:00 | P.CNPUL ---
History of Present Illness Consult date: 04/20/22 History of present illness: This is a 71-year-old female patient was started proximally 4 days ago to have increased nausea, emesis, generalized fatigue, tiredness, chills and fever. Both the patient and her were diagnosed having COVID 19 infection 4 days ago. Her primary care physician has already started the patient on Paxlovid and the patient took it for a few days and the patient an upcoming interrupted because of worsening symptoms. No respiratory difficulties. No cough sputum production. No hypoxemia. Chest x-rays clear. Inflammatory markers show a d- dimer of 0.22, LDH level is 399, CRP level is at less than 0.5 and the patient's pro calcitonin level is at 0.03. Troponins are negative. Nevertheless, the patient's white cell count is at 2.2 and the patient has lymphopenia. The patient's sodium level was 119 probably related to diminished dietary intake and nausea and emesis. No significant acidosis or alkalosis. The patient's serum bicarbs at 22 with anion gap of 10. Potassium level is at 4.0. Chloride is 87. LFTs are normal. The patient is not vaccinated and this is her first infection. No altered mentation. She is currently on IV fluids with normal saline at the rate of 130s's an hour. Review of Systems Constitutional: Reports fatigue, Reports fever, Reports poor appetite, Reports weakness Eyes: denies as per HPI, denies blurred vision, denies bulging eye, denies decreased vision, denies diplopia, denies discharge, denies dry eye, denies irritation, denies itching, denies pain, denies photophobia, denies loss of peripheral vision, denies loss of vision, denies tunnel vision/blind spots Ears: deny: decreased hearing, ear discharge, earache, tinnitus Ears, nose, mouth and throat: Reports as per HPI Breasts: absent: as per HPI, change in shape, gynecomastia, masses, nipple discharge, pain, skin changes, swelling Gastrointestinal: Reports nausea, Reports vomiting Menstruation: Reports as per HPI Musculoskeletal: Reports as per HPI, Reports muscle weakness Musculoskeletal: absent: ankle pain, ankle stiffness, ankle swelling Integumentary: Reports as per HPI Neurological: Reports as per HPI, Reports weakness Psychiatric: Reports as per HPI Endocrine: Reports as per HPI, Reports fatigue Hematologic/Lymphatic: Reports as per HPI Allergic/Immunologic: Reports as per HPI Past Medical History Past Medical History: Atrial Fibrillation, Coronary Artery Disease (CAD) (coromary stent ([place])), Hyperlipidemia, Hypertension, Myocardial Infarction ([place]), Osteoarthritis (OA) Additional Past Medical History / Comment(s): CHRONIC HEADACHES, CHRONIC CONSTI PATION, CARPAL TUNNEL WITH RECENT STEROID INJECTION. , STATES OCCASIONAL TIGHTNESS IN HER CHEST WITH EXERCISE., SEE CARDIOLOGY H & P. Last Myocardial Infarction Date:: 2005 History of Any Multi-Drug Resistant Organisms: None Reported Past Surgical History: Heart Catheterization With Stent Past Anesthesia/Blood Transfusion Reactions: No Reported Reaction Date of Last Stent Placement:: 2005 Past Psychological History: No Psychological Hx Reported Smoking Status: Former smoker Past Alcohol Use History: None Reported Past Drug Use History: None Reported - Past Family History Father Family Medical History: Coronary Artery Disease (CAD) Additional Family Medical History / Comment(s): Heart disease Mother Family Medical History: Coronary Artery Disease (CAD), Diabetes Mellitus Additional Family Medical History / Comment(s): heart disease Brother(s) Family Medical History: Cancer, Coronary Artery Disease (CAD) Additional Family Medical History / Comment(s): PROSTATE CANCER Sister(s) Family Medical History: No Reported History Daughter(s) Family Medical History: No Reported History Son(s) Family Medical History: No Reported History Additional Family Medical History / Comment(s): Patient has 11 grandkids. Medications and Allergies Home Medications Medication Instructions Recorded Confirmed Type Aspirin 81 mg PO DAILY 06/24/15 03/03/22 History Ginkgo Biloba 1 tab PO DAILY 06/06/16 03/03/22 History Green Gold Nutrition (Mineral 1 tab PO DAILY 06/06/16 03/03/22 History /Vitamin Supplement) Herbal Laxative 1 tab PO DAILY PRN 06/06/16 03/03/22 History [place]-3 Fatty Acids/Fish Oil [Fish 1 cap PO DAILY 06/06/16 03/03/22 History Oil 1,000 mg Softgel] Ubidecarenone [Co Q-10] 100 mg PO DAILY 06/06/16 03/03/22 History Nitroglycerin [Nitromist] 1 spray SL Q5M PRN 06/09/16 03/03/22 History Apixaban [Eliquis] 5 mg PO BID 03/03/22 03/03/22 History Magnesium Taurate 400 mg PO BID 03/03/22 03/03/22 History Metoprolol Tartrate [Lopressor] 12.5 mg PO BID 03/03/22 03/03/22 History Nitroglycerin Sl Tabs [Nitrostat] 0.4 mg SUBLINGUAL Q5M PRN 03/03/22 03/03/22 History Ranolazine [Ranexa] 1,000 mg PO Q12HR 03/03/22 03/03/22 History Red Yeast Rice 600 mg PO DAILY 03/03/22 03/03/22 History Turmeric Root Extract [Turmeric] 500 mg PO DAILY 03/03/22 03/03/22 History clonazePAM [KlonoPIN] 0.25 mg PO HS PRN 03/03/22 03/03/22 History Allergies Allergy/AdvReac Type Severity Reaction Status Date / Time latex Allergy Intermediate Rash/Hives Verified 03/03/22 17:32 Physical Exam Vitals: Vital Signs Temp Pulse Resp BP Pulse Ox 04/20/22 08:37 60 24 174/82 95 04/20/22 08:08 61 20 174/102 94 L 04/20/22 03:56 97.3 F L 58 L 16 199/97 96 Intake and Output 04/19/22 04/20/22 04/20/22 22:59 06:59 14:59 Other: Weight 63 kg Gen. appearance the patient is calm and comfortable on room air oxygen Vital exam The patient appeared well nourished and normally developed. Vital signs as documented. Head exam is unremarkable. No scleral icterus or corneal arcus noted. Neck is without jugular venous distension, thyromegaly, or carotid bruits. Carotid upstrokes are brisk bilaterally. Lungs are clear to auscultation and percussion. Cardiac exam reveals the PMI to be normally sized and situated. Rhythm is regular. First and second heart sounds normal. No murmurs, rubs or gallops. Abdominal exam reveals normal bowel sounds, no masses, no organomegaly and no aortic enlargement. Extremities are nonedematous and both femoral and pedal pulses are normal.Examination of the skin revealed no evidence of significant rashes, suspicious appearing nevi or other concerning lesions.Neurologically, the patient is awake and alert and the patient does not have any focal neurological deficit. Cranial nerves are essentially intact. Results - Laboratory Findings CBC and BMP: 04/20/22 05:25 04/20/22 05:25 PT/INR, D-dimer PT 12.2 sec (9.0-12.0) H 04/20/22 05:51 INR 1.1 (<1.2) 04/20/22 05:51 Abnormal lab findings: Abnormal Labs 04/20/22 04/20/22 04/20/22 05:25 05:25 05:51 WBC 2.2 L Lymphocytes # 0.7 L PT 12.2 H APTT 49.9 H Sodium 119 L* Chloride 87 L Glucose 121 H Calcium 8.2 L AST 38 H Coronavirus (PCR) 04/20/22 08:13 WBC Lymphocytes # PT APTT Sodium Chloride Glucose Calcium AST Coronavirus (PCR) Detected A - Diagnostic Findings Chest x-ray: image reviewed Assessment and Plan Plan: COVID 19 infection, unvaccinated, started on Paxlovid on outpatient basis, the patient has fever and chills and GI manifestations of COVID 19 without diarrhea. She has had nausea and emesis and dehydration. Presented to us with generalized weakness. Chest x-rays clear. No evidence of pneumonia. No cough or sputum production. No hypoxemia. The inflammatory markers are mildly elevated at this point in time. Symptoms started approximately 4 days ago Acute hyponatremia Generalized weakness and fatigue secondary to above Leukopenia/neutropenia Coronary artery disease with previous coronary stenting History of paroxysmal atrial fibrillation and the patient's current rhythm is sinus bradycardia with old Q waves involving the anteroseptal leads Hypertension Hyperlipidemia Osteoarthritis, History of chronic headaches Plan Continue fluids with hydration patient is currently receiving normal saline at the rate of 130s is an hour Zofran for nausea and emesis No clear indication for systemic steroids as the patient is not showing any significant hypoxemia or respiratory involvement No indication for Remdesivir Resume all medications Monitor the sodium level Continue anticoagulation with Eliquis We'll follow
--- NOTE | 2022-04-20 20:02 | P.HPIM ---
History of Present Illness H&P Date: 04/20/22 Chief Complaint: Generalized weakness 71-year-old female patient was started proximally 4 days ago to have increased nausea, emesis, generalized fatigue, tiredness, chills and fever. Both the patient and her were diagnosed having COVID 19 infection 4 days ago. Her primary care physician has already started the patient on Paxlovid and the patient took it for a few days and the patient an upcoming interrupted because of worsening symptoms. No respiratory difficulties. No cough sputum production. No hypoxemia. Chest x-rays clear. Inflammatory markers show a d- dimer of 0.22, LDH level is 399, CRP level is at less than 0.5 and the patient's pro calcitonin level is at 0.03. Troponins are negative. Nevertheless, the patient's white cell count is at 2.2 and the patient has lymphopenia. The patient's sodium level was 119 probably related to diminished dietary intake and nausea and emesis. No significant acidosis or alkalosis. The patient's serum bicarbs at 22 with anion gap of 10. Potassium level is at 4.0. Chloride is 87. LFTs are normal. Review of Systems REVIEW OF SYSTEMS: CONSTITUTIONAL: No fever, no malaise, no fatigue. HEENT: No recent visual problems or hearing problems. Denied any sore throat. CARDIOVASCULAR: No chest pain, orthopnea, PND, no palpitations, no syncope. PULMONARY: No shortness of breath, no cough, no hemoptysis. GASTROINTESTINAL: No diarrhea, no nausea, no vomiting, no abdominal pain. NEUROLOGICAL: No headaches, no weakness, no numbness. HEMATOLOGICAL: Denies any bleeding or petechiae. GENITOURINARY: Denies any burning micturition, frequency, or urgency. MUSCULOSKELETAL/RHEUMATOLOGICAL: Denies any joint pain, swelling, or any muscle pain. ENDOCRINE: Denies any polyuria or polydipsia. The rest of the 14-point review of systems is negative. Past Medical History Past Medical History: Atrial Fibrillation, Coronary Artery Disease (CAD), Hyperlipidemia, Hypertension, Myocardial Infarction ([place]), Osteoarthritis (OA) Additional Past Medical History / Comment(s): CHRONIC HEADACHES, CHRONIC CONSTIPATION, CARPAL TUNNEL WITH RECENT STEROID INJECTION. , STATES OCCASIONAL TIGHTNESS IN HER CHEST WITH EXERCISE., SEE CARDIOLOGY H & P. Last Myocardial Infarction Date:: 2005 History of Any Multi-Drug Resistant Organisms: None Reported Past Surgical History: Heart Catheterization With Stent Past Anesthesia/Blood Transfusion Reactions: No Reported Reaction Date of Last Stent Placement:: 2005 Past Psychological History: No Psychological Hx Reported Smoking Status: Former smoker Past Alcohol Use History: None Reported Past Drug Use History: None Reported - Past Family History Father Family Medical History: Coronary Artery Disease (CAD) Additional Family Medical History / Comment(s): Heart disease Mother Family Medical History: Coronary Artery Disease (CAD), Diabetes Mellitus Additional Family Medical History / Comment(s): heart disease Brother(s) Family Medical History: Cancer, Coronary Artery Disease (CAD) Additional Family Medical History / Comment(s): PROSTATE CANCER Sister(s) Family Medical History: No Reported History Daughter(s) Family Medical History: No Reported History Son(s) Family Medical History: No Reported History Additional Family Medical History / Comment(s): Patient has 11 grandkids. Medications and Allergies Home Medications Medication Instructions Recorded Confirmed Type Aspirin 81 mg PO DAILY 06/24/15 04/20/22 History Ginkgo Biloba 1 tab PO DAILY 06/06/16 04/20/22 History Green Gold Nutrition (Mineral 1 tab PO DAILY 06/06/16 04/20/22 History /Vitamin Supplement) Herbal Laxative 1 tab PO DAILY PRN 06/06/16 04/20/22 History [place]-3 Fatty Acids/Fish Oil [Fish 1 cap PO DAILY 06/06/16 04/20/22 History Oil 1,000 mg Softgel] Ubidecarenone [Co Q-10] 100 mg PO DAILY 06/06/16 04/20/22 History Nitroglycerin [Nitromist] 1 spray SL Q5M PRN 06/09/16 04/20/22 History Apixaban [Eliquis] 5 mg PO BID 03/03/22 04/20/22 History Magnesium Taurate 400 mg PO BID 03/03/22 04/20/22 History Metoprolol Tartrate [Lopressor] 12.5 mg PO BID 03/03/22 04/20/22 History Nitroglycerin Sl Tabs [Nitrostat] 0.4 mg SL Q5M PRN 03/03/22 04/20/22 History Ranolazine [Ranexa] 1,000 mg PO Q12HR 03/03/22 04/20/22 History Red Yeast Rice 600 mg PO DAILY 03/03/22 04/20/22 History Turmeric Root Extract [Turmeric] 500 mg PO DAILY 03/03/22 04/20/22 History clonazePAM [KlonoPIN] 0.25 mg PO HS PRN 03/03/22 04/20/22 History Nirmatrelvir/Ritonavir [Paxlovid 3 tab PO BID 04/20/22 04/20/22 History Co-Pack (Eua)] Ondansetron [Zofran] 4 mg PO TID PRN 04/20/22 04/20/22 History Rosuvastatin Calcium [Crestor] 5 mg PO DAILY 04/20/22 04/20/22 History Allergies Allergy/AdvReac Type Severity Reaction Status Date / Time latex Allergy Intermediate Rash/Hives Verified 04/20/22 12:20 Physical Exam Vitals: Vital Signs Temp Pulse Resp BP Pulse Ox 04/20/22 08:37 60 24 174/82 95 04/20/22 08:08 61 20 174/102 94 L 04/20/22 03:56 97.3 F L 58 L 16 199/97 96 Intake and Output 04/19/22 04/20/22 04/20/22 22:59 06:59 14:59 Other: Weight 63 kg PHYSICAL EXAMINATION: GENERAL: The patient is alert and oriented x3, not in any acute distress. Well developed, well nourished. HEENT: Pupils are round and equally reacting to light. EOMI. No scleral icterus. No conjunctival pallor. Normocephalic, atraumatic. No pharyngeal erythema. No thyromegaly. CARDIOVASCULAR: S1 and S2 present. No murmurs, rubs, or gallops. PULMONARY: Chest is clear to auscultation, no wheezing or crackles. ABDOMEN: Soft, nontender, nondistended, normoactive bowel sounds. No palpable organomegaly. MUSCULOSKELETAL: No joint swelling or deformity. EXTREMITIES: No cyanosis, clubbing, or pedal edema. NEUROLOGICAL: Gross neurological examination did not reveal any focal deficits. SKIN: No rashes. Results CBC & Chem 7: 04/20/22 05:25 04/20/22 05:25 Labs: Abnormal Lab Results - Last 24 Hours (Table) 04/20/22 04/20/22 04/20/22 Range/Units 05:25 05:25 05:51 WBC 2.2 L (3.8-10.6) k/uL Lymphocytes # 0.7 L (1.0-4.8) k/uL PT 12.2 H (9.0-12.0) sec APTT 49.9 H (22.0-30.0) sec Sodium 119 L* (137-145) mmol/L Chloride 87 L (98-107) mmol/L Glucose 121 H (74-99) mg/dL Calcium 8.2 L (8.4-10.2) mg/dL AST 38 H (14-36) U/L Coronavirus (PCR) (Not Detectd) 04/20/22 Range/Units 08:13 WBC (3.8-10.6) k/uL Lymphocytes # (1.0-4.8) k/uL PT (9.0-12.0) sec APTT (22.0-30.0) sec Sodium (137-145) mmol/L Chloride (98-107) mmol/L Glucose (74-99) mg/dL Calcium (8.4-10.2) mg/dL AST (14-36) U/L Coronavirus (PCR) Detected A (Not Detectd) Assessment and Plan Assessment: 1. COVID-19 infection - Patient is not vaccinated; he has been started on Paxlovid overt on outpatient basis but continues to have fever and chills with GI manifestations; patient reports multiple episodes of nausea and emesis and generalized weakness - Pulmonary on board; no recommendation for Remdesivir; No clear indication for systemic steroids as the patient is not showing any significant hypoxemia or respiratory involvement - Patient has been placed on COVID-19 vitamin cocktail - Continue anticoagulation with [place] - We will order CBC, CRP, pro-calcitonin,'s LDH, ferritin and d-dimer 2. Acute hypernatremia; patient hasn't started on IV fluid hydration in form of normal saline at rate of 1 30 mL an hour; we will monitor renal function and electrolytes closely 3. Intractable nausea and vomiting; continue with IV fluid hydration; IV Zofran for nausea and vomiting 4. Hypertension; metoprolol 12.5 mg twice a day 5. Hyperlipidemia; continue with home statin therapy 6. CAD; history of stent placement; stable on beta blockers, nitro mist and Ranexa 7. Atrial fibrillation; remains rate controlled on metoprolol; continue anticoagulation with lquist DVT prophylaxis; SCDs/anticoagulation CODE STATUS; full code
[2022-04-20] MEDS: clonazePAM 0.5 MG TAB PO PRN (20:43)
[2022-04-20] MEDS: APIXABAN 5 MG TAB PO SCH (20:43)
--- NOTE | 2022-04-20 22:43 | P.CONS ---
History of Present Illness - Reason for Consult Consult date: 04/20/22 - History of Present Illness Patient is a 71-year-old female who is not vaccinated for covid19 presenting to the ER for evaluation of increasing nausea generalized fatigue tiredness chills and fever in this patient symptom has been going on for 4 days before presentation to the hospital apparently the patient as well as was diagnosed with COVID-19 about 4 days before presentation to the hospital and the patient was started on Paxil weight with the patient took for few days however did have interruption because of her worsening symptoms patient denies having any chest pain denies having any shortness of breath no significant cough or sputum production no abdominal pain or diarrhea on presentation to the hospital patient was afebrile and no fever have been recorded subsequently, patient did have mild leukopenia as well as lymphopenia D-dimer was normal creatinine was normal AST was mildly elevated COVID testing was positive patient did have a chest x-ray pulmonary interstitial edema new compared to old exam patient was admitted to hospital infectious disease was consulted for further management Past Medical History Past Medical History: Atrial Fibrillation, Coronary Artery Disease (CAD) (coromary stent ([facility])), Hyperlipidemia, Hypertension, Myocardial Infarction ([place]), Osteoarthritis (OA) Additional Past Medical History / Comment(s): CHRONIC HEADACHES, CHRONIC CONSTIPATION, CARPAL TUNNEL WITH RECENT STEROID INJECTION. , STATES OCCASIONAL TIGHTNESS IN HER CHEST WITH EXERCISE., SEE CARDIOLOGY H & P. Last Myocardial Infarction Date:: 2005 History of Any Multi-Drug Resistant Organisms: None Reported Past Surgical History: Heart Catheterization With Stent Past Anesthesia/Blood Transfusion Reactions: No Reported Reaction Date of Last Stent Placement:: 2005 Past Psychological History: No Psychological Hx Reported Smoking Status: Former smoker Past Alcohol Use History: None Reported Past Drug Use History: None Reported - Past Family History Father Family Medical History: Coronary Artery Disease (CAD) Additional Family Medical History / Comment(s): Heart disease Mother Family Medical History: Coronary Artery Disease (CAD), Diabetes Mellitus Additional Family Medical History / Comment(s): heart disease Brother(s) Family Medical History: Cancer, Coronary Artery Disease (CAD) Additional Family Medical History / Comment(s): PROSTATE CANCER Sister(s) Family Medical History: No Reported History Daughter(s) Family Medical History: No Reported History Son(s) Family Medical History: No Reported History Additional Family Medical History / Comment(s): Patient has 11 grandkids. Medications and Allergies Home Medications Medication Instructions Recorded Confirmed Type Aspirin 81 mg PO DAILY 06/24/15 04/20/22 History Ginkgo Biloba 1 tab PO DAILY 06/06/16 04/20/22 History Green Gold Nutrition (Mineral 1 tab PO DAILY 06/06/16 04/20/22 History /Vitamin Supplement) Herbal Laxative 1 tab PO DAILY PRN 06/06/16 04/20/22 History [place]-3 Fatty Acids/Fish Oil [Fish 1 cap PO DAILY 06/06/16 04/20/22 History Oil 1,000 mg Softgel] Ubidecarenone [Co Q-10] 100 mg PO DAILY 06/06/16 04/20/22 History Nitroglycerin [Nitromist] 1 spray SL Q5M PRN 06/09/16 04/20/22 History Apixaban [Eliquis] 5 mg PO BID 03/03/22 04/20/22 History Magnesium Taurate 400 mg PO BID 03/03/22 04/20/22 History Metoprolol Tartrate [Lopressor] 12.5 mg PO BID 03/03/22 04/20/22 History Nitroglycerin Sl Tabs [Nitrostat] 0.4 mg SL Q5M PRN 03/03/22 04/20/22 History Ranolazine [Ranexa] 1,000 mg PO Q12HR 03/03/22 04/20/22 History Red Yeast Rice 600 mg PO DAILY 03/03/22 04/20/22 History Turmeric Root Extract [Turmeric] 500 mg PO DAILY 03/03/22 04/20/22 History clonazePAM [KlonoPIN] 0.25 mg PO HS PRN 03/03/22 04/20/22 History Nirmatrelvir/Ritonavir [Paxlovid 3 tab PO BID 04/20/22 04/20/22 History Co-Pack (Eua)] Ondansetron [Zofran] 4 mg PO TID PRN 04/20/22 04/20/22 History Rosuvastatin Calcium [Crestor] 5 mg PO DAILY 04/20/22 04/20/22 History Allergies Allergy/AdvReac Type Severity Reaction Status Date / Time latex Allergy Intermediate Rash/Hives Verified 04/20/22 12:20 Physical Exam Vitals: Vital Signs Temp Pulse Pulse Resp BP BP Pulse Ox 04/20/22 14:02 98.0 F 55 L 171/87 97 04/20/22 10:15 98.0 F 69 193/89 97 04/20/22 08:37 60 24 174/82 95 04/20/22 08:08 61 20 174/102 94 L 04/20/22 03:56 97.3 F L 58 L 16 199/97 96 Intake and Output 04/19/22 04/20/22 04/20/22 22:59 06:59 14:59 Other: Weight 63 kg Results CBC & Chem 7: 04/20/22 05:25 04/20/22 05:25 Labs: Abnormal Lab Results - Last 24 Hours (Table) 04/20/22 04/20/22 04/20/22 Range/Units 05:25 05:25 05:51 WBC 2.2 L (3.8-10.6) k/uL Lymphocytes # 0.7 L (1.0-4.8) k/uL PT 12.2 H (9.0-12.0) sec APTT 49.9 H (22.0-30.0) sec Sodium 119 L* (137-145) mmol/L Chloride 87 L (98-107) mmol/L Glucose 121 H (74-99) mg/dL POC Glucose (mg/dL) (75-99) mg/dL Calcium 8.2 L (8.4-10.2) mg/dL AST 38 H (14-36) U/L Coronavirus (PCR) (Not Detectd) 04/20/22 04/20/22 Range/Units 08:13 11:13 WBC (3.8-10.6) k/uL Lymphocytes # (1.0-4.8) k/uL PT (9.0-12.0) sec APTT (22.0-30.0) sec Sodium (137-145) mmol/L Chloride (98-107) mmol/L Glucose (74-99) mg/dL POC Glucose (mg/dL) 135 H (75-99) mg/dL Calcium (8.4-10.2) mg/dL AST (14-36) U/L Coronavirus (PCR) Detected A (Not Detectd) Assessment and Plan Plan: 1patient presented to hospital with generalized weakness nausea and this patient has been diagnosed with a covid19 about 4 days ago and the patient has not been vaccinated for it patient currently do not have any fever or hypoxemia chest x-ray with minimal infiltrate more likely mild illness and will not q ualify for remdesivir or steroids and no clinical suspicious for secondary bacterial pneumonia. 2continue the current supportive treatment with the zinc ascorbic acid and Lovenox. 3no need for remdesivir or antibiotics. 4droplet isolation. We will follow on clinical condition and cultures to further adjust medication if needed Thank you for this consultation will follow this patient along with you Time with Patient: Greater than 30
[2022-04-20 22:46] LABS: C Reactive Protein <0.30 mg/dL (0.00-0.80)
[2022-04-20 22:53] LABS: LDH 186 U/L (120-246)
[2022-04-21] MEDS: RANOLAZINE 500 MG TAB.ER.12H PO SCH ×3 (01:51→20:52)
[2022-04-21] MEDS: SODIUM CHLORIDE 0.9% 1,000 ML IV SCH ×2 (01:51→11:20)
[2022-04-21] MEDS: APIXABAN 5 MG TAB PO SCH ×2 (08:22→20:52)
[2022-04-21] MEDS: ASCORBIC ACID 500 MG TAB PO SCH (08:22)
[2022-04-21] MEDS: ZINC SULFATE 220 MG CAP PO SCH (08:22)
[2022-04-21] MEDS: METOPROLOL TARTRATE 12.5 MG TAB PO SCH ×2 (08:22→20:52)
[2022-04-21] MEDS: ASPIRIN 81 MG PO SCH (08:22)
[2022-04-21] MEDS: CHOLECALCIFEROL 25 MCG (1000 IU) TABLET PO SCH (08:22)
[2022-04-21] MEDS: PANTOPRAZOLE 40 MG/10 ML VIAL IV SCH (08:52)
[2022-04-21] MEDS: DEXAMETHASONE SOD PHOSPHATE 10 MG/ML 1 ML VIAL IVP SCH (08:52)
[2022-04-21 10:06] LABS: Potassium 3.2 mmol/L (3.5-5.1)
[2022-04-21 10:54] LABS: Basophils # (A) 0 X 10*3/uL (0.00-0.10); Basophils % (A) 0 %; Eosinophils # (A) 0 X 10*3/uL (0.04-0.35); Eosinophils % (A) 0 %; HCT 30.3 % (37.2-46.3); HGB 10.6 g/dL (12.0-15.0); Immature Grans, Automated 0.3 %; Lymphocytes # (A) 0.46 X 10*3/uL (0.90-5.00); Lymphocytes % (A) 13.6 %; MCH 30.8 pg (27.0-32.0); MCV 88.1 fL (80.0-97.0); Mean Platelet Volume 11.7 fL (9.5-12.2); Monocytes # (A) 0.15 X 10*3/uL (0.20-1.00); Monocytes % (A) 4.4 %; NRBC Per 100 WBC 0 /100 WBCS (0.0-0.0); Neutrophils # (A) 2.76 X 10*3/uL (1.80-7.70); Neutrophils % (A) 81.7 %; Platelet Count 165 X 10*3/uL (140-440); RBC 3.44 X 10*6/uL (4.10-5.20); RDW 12.3 % (11.5-14.5); WBC 3.38 X 10*3/uL (4.50-10.00)
[2022-04-21 11:00] LABS: African American GFR (CKD) 99.6 (60.0-200.0); Albumin 3.8 g/dL (3.8-4.9); Albumin/Globulin Ratio 1.9 (1.60-3.17); Anion Gap 13.6 mmol/L (10.00-18.00); BUN/Creat Ratio 15.29 Ratio (12.00-20.00); Blood Urea Nitrogen 10.7 mg/dL (9.0-27.0); Calcium 8.2 mg/dL (8.7-10.3); Carbon Dioxide 18.4 mmol/L (20.0-27.5); Magnesium 1.9 mg/dL (1.5-2.4); Phosphorus 2.5 mg/dL (2.4-5.1); Potassium 3.4 mmol/L (3.5-5.5); Total Bilirubin 0.4 mg/dL (0.30-1.20); Total Protein 5.8 g/dL (6.2-8.2)
--- NOTE | 2022-04-21 11:06 | P.NPCON ---
History of Present Illness - Reason for Consult hyponatremia - History of Present Illness Patient is a 71-year-old female with no significant past medical history. She is admitted to the hospital with complaints of increased weakness. Patient was diagnosed with the COVID-19 infection. She has not been eating and drinking much over the last 2-3 days. Patient was not able to get out of bed. Serum sodium on admission was noted to be 117 Mittie Sorensen per liter. Patient is currently maintained on normal saline her sodium did come up to 1:30 today. IV fluids and now discontinued. Next Patient states she's feeling much better. She is tolerating some oral intake. No significant chest pains or shortness of breath. Patient is maintained on room air. No hypoxia noted. Review of Systems As per HPI Past Medical History Past Medical History: Atrial Fibrillation, Coronary Artery Disease (CAD), Hyperlipidemia, Hypertension, Myocardial Infarction ([place]), Osteoarthritis (OA) Additional Past Medical History / Comment(s): CHRONIC HEADACHES, CHRONIC CONSTIPATION, CARPAL TUNNEL WITH RECENT STEROID INJECTION. , STATES OCCASIONAL TIGHTNESS IN HER CHEST WITH EXERCISE., SEE CARDIOLOGY H & P. Last Myocardial Infarction Date:: 2005 History of Any Multi-Drug Resistant Organisms: None Reported Past Surgical History: Heart Catheterization With Stent Past Anesthesia/Blood Transfusion Reactions: No Reported Reaction Date of Last Stent Placement:: 2005 Past Psychological History: No Psychological Hx Reported Smoking Status: Former smoker Past Alcohol Use History: None Reported Past Drug Use History: None Reported - Past Family History Father Family Medical History: Coronary Artery Disease (CAD) Additional Family Medical History / Comment(s): Heart disease Mother Family Medical History: Coronary Artery Disease (CAD), Diabetes Mellitus Additional Family Medical History / Comment(s): heart disease Brother(s) Family Medical History: Cancer, Coronary Artery Disease (CAD) Additional Family Medical History / Comment(s): PROSTATE CANCER Sister(s) Family Medical History: No Reported History Daughter(s) Family Medical History: No Reported History Son(s) Family Medical History: No Reported History Additional Family Medical History / Comment(s): Patient has 11 grandkids. Medications and Allergies Home Medications Medication Instructions Recorded Confirmed Type Aspirin 81 mg PO DAILY 06/24/15 04/20/22 History Ginkgo Biloba 1 tab PO DAILY 06/06/16 04/20/22 History Green Gold Nutrition (Mineral 1 tab PO DAILY 06/06/16 04/20/22 History /Vitamin Supplement) Herbal Laxative 1 tab PO DAILY PRN 06/06/16 04/20/22 History [place]-3 Fatty Acids/Fish Oil [Fish 1 cap PO DAILY 06/06/16 04/20/22 History Oil 1,000 mg Softgel] Ubidecarenone [Co Q-10] 100 mg PO DAILY 06/06/16 04/20/22 History Nitroglycerin [Nitromist] 1 spray SL Q5M PRN 06/09/16 04/20/22 History Apixaban [Eliquis] 5 mg PO BID 03/03/22 04/20/22 History Magnesium Taurate 400 mg PO BID 03/03/22 04/20/22 History Metoprolol Tartrate [Lopressor] 12.5 mg PO BID 03/03/22 04/20/22 History Nitroglycerin Sl Tabs [Nitrostat] 0.4 mg SL Q5M PRN 03/03/22 04/20/22 History Ranolazine [Ranexa] 1,000 mg PO Q12HR 03/03/22 04/20/22 History Red Yeast Rice 600 mg PO DAILY 03/03/22 04/20/22 History Turmeric Root Extract [Turmeric] 500 mg PO DAILY 03/03/22 04/20/22 History clonazePAM [KlonoPIN] 0.25 mg PO HS PRN 03/03/22 04/20/22 History Nirmatrelvir/Ritonavir [Paxlovid 3 tab PO BID 04/20/22 04/20/22 History Co-Pack (Eua)] Ondansetron [Zofran] 4 mg PO TID PRN 04/20/22 04/20/22 History Rosuvastatin Calcium [Crestor] 5 mg PO DAILY 04/20/22 04/20/22 History Allergies Allergy/AdvReac Type Severity Reaction Status Date / Time latex Allergy Intermediate Rash/Hives Verified 04/20/22 12:20 Physical Exam Vitals: Vital Signs Temp Pulse Resp BP Pulse Ox 04/21/22 07:37 98.1 F 60 17 150/64 97 04/21/22 06:00 98.9 F 62 16 155/68 98 04/21/22 02:00 97.8 F 66 18 156/94 96 04/20/22 21:23 98.0 F 60 20 180/70 97 04/20/22 19:34 17 04/20/22 18:00 97.5 F L 80 151/77 96 04/20/22 14:02 98.0 F 55 L 171/87 97 Intake and Output 04/20/22 04/21/22 04/21/22 22:59 06:59 14:59 Intake Total 2598 Output Total 400 300 Balance 2198 -300 Intake: Intake, IV Titration 2598 Amount Sodium Chloride 0.9% 1, 600 000 ml @ 130 mls/hr IV . Q7H42M TIFFANIE Rx#:[id number] Sodium Chloride 0.9% 1, 999 000 ml @ 999 mls/hr IV . Q1H1M ONE Rx#:[id number] Sodium Chloride 0.9% 1, 999 000 ml @ 999 mls/hr IV . Q1H1M STA Rx#:[id number] Output: Urine 400 300 Other: Voiding Method External Catheter Patient is comfortable awake, not in any acute distress Alert oriented 3 Examination of lower extremities shows no evidence of edema [employer] exam grossly intact Results - Lab Results Most recent lab results Calcium 8.2 mg/dL (8.4-10.2) L 04/20/22 05: Magnesium 1.7 mg/dL (1.6-2.3) 04/20/22 05:25 04/21/22 03:33 04/21/22 09:32 Assessment and Plan Assessment: 1. Hypovolemic hyponatremia currently improved with IV hydration. Serum sodium has increased more than 10 points however I believe this was acute hyponatremia and therefore we will continue to monitor without starting D5W for now. Repeat sodium at about 2 PM. Urine osmolality urine sodium is currently pending 2. COVID-19 infection with chest x-ray showing prominent pulmonary interstitial markings. Currently not hypoxic. Maintained on room air 3. Volume depletion 4. Mild metabolic acidosis. No history of diarrhea possible lactic acidosis 5. Hypertension most likely exacerbated with NSAIDs and steroids Plan: Continue off of saline Encourage increased oral intake Follow-up on urine osmolality Hold sodium bicarb for now. Repeat sodium this afternoon Repeat labs in a.m.
--- NOTE | 2022-04-21 11:59 | P.PN ---
Subjective Progress Note Date: 04/21/22 This is a 71-year-old female patient was started proximally 4 days ago to have increased nausea, emesis, generalized fatigue, tiredness, chills and fever. Both the patient and her were diagnosed having COVID 19 infection 4 days ago. Her primary care physician has already started the patient on Paxlovid and the patient took it for a few days and the patient an upcoming interrupted because of worsening symptoms. No respiratory difficulties. No cough sputum production. No hypoxemia. Chest x-rays clear. Inflammatory markers show a d- dimer of 0.22, LDH level is 399, CRP level is at less than 0.5 and the patient's pro calcitonin level is at 0.03. Troponins are negative. Nevertheless, the patient's white cell count is at 2.2 and the patient has lymphopenia. The patient's sodium level was 119 probably related to diminished dietary intake and nausea and emesis. No significant acidosis or alkalosis. The patient's serum bicarbs at 22 with anion gap of 10. Potassium level is at 4.0. Chloride is 87. LFTs are normal. The patient is not vaccinated and this is her first infection. No altered mentation. She is currently on IV fluids with normal saline at the rate of 130s's an hour. 04/21/2022, the patient is doing well. No nausea or vomiting. Sodium level continues to improve is up to 130. The patient has no specific complaints otherwise. No respiratory difficulties. No cough or sputum production. Inflammatory markers regarding over 19 infection was low and the patient is on room air oxygen with a pulse ox of 97-90%.The blood work from today showing a white cell count of 3.3 with hemoglobin 10.6 and as mentioned the sodium is up to 130 and a potassium level is at 3.2. The serum bicarbs 18 Objective - Vital Signs Vital signs: Vital Signs Temp 98.1 F 04/21/22 07:37 Pulse 60 04/21/22 07:37 Resp 17 04/21/22 07:37 BP 150/64 04/21/22 07:37 Pulse Ox 97 04/21/22 07:37 FiO2 Intake & Output 04/20/22 04/21/22 04/21/22 18:59 06:59 18:59 Intake Total 2598 Output Total 400 300 Balance 2198 -300 Intake: Intake, IV Titration 2598 Amount Sodium Chloride 0.9% 1, 600 000 ml @ 130 mls/hr IV . Q7H42M [facility] Rx#:[id number] Sodium Chloride 0.9% 1, 999 000 ml @ 999 mls/hr IV . Q1H1M [facility] Rx#:[id number] Sodium Chloride 0.9% 1, 999 000 ml @ 999 mls/hr IV . Q1H1M [facility] Rx#:[id number] Output: Urine 400 300 Other: Voiding Method External Catheter - Exam Gen. appearance the patient is calm and comfortable on room air oxygen Vital exam The patient appeared well nourished and normally developed. Vital signs as documented. Head exam is unremarkable. No scleral icterus or corneal arcus noted. Neck is without jugular venous distension, thyromegaly, or carotid bruits. Carotid upstrokes are brisk bilaterally. Lungs are clear to auscultation and percussion. Cardiac exam reveals the PMI to be normally sized and situated. Rhythm is regular. First and second heart sounds normal. No murmurs, rubs or gallops. Abdominal exam reveals normal bowel sounds, no masses, no organomegaly and no aortic enlargement. Extremities are nonedematous and both femoral and pedal pulses are normal.Examination of the skin revealed no evidence of significant rashes, suspicious appearing nevi or other concerning lesions.Neurologically, the patient is awake and alert and the patient does not have any focal neurological deficit. Cranial nerves are essentially intact. - Labs CBC & Chem 7: 04/21/22 03:33 04/21/22 09:32 Labs: Abnormal Lab Results - Last 24 Hours (Table) 04/20/22 04/20/22 04/21/22 Range/Units 05:25 11:13 09:32 Sodium 130 L (137-145) mmol/L Potassium 3.2 L (3.5-5.1) mmol/L Chloride 95 L (98-107) mmol/L Carbon Dioxide 18 L (22-30) mmol/L POC Glucose (mg/dL) 135 H (75-99) mg/dL Ferritin 403.0 H (10.0-291.0) ng/mL Assessment and Plan Plan: COVID 19 infection, unvaccinated, started on Paxlovid on outpatient basis, the patient has fever and chills and GI manifestations of COVID 19 without diarrhea. She has had nausea and emesis and dehydration. Presented to us with generalized weakness. Chest x-rays clear. No evidence of pneumonia. No cough or sputum production. No hypoxemia. The inflammatory markers are mildly elevated at this point in time. Symptoms started approximately 4 days ago Acute hyponatremia Generalized weakness and fatigue secondary to above Leukopenia/neutropenia Coronary artery disease with previous coronary stenting History of paroxysmal atrial fibrillation and the patient's current rhythm is sinus bradycardia with old Q waves involving the anteroseptal leads Hypertension Hyperlipidemia Osteoarthritis, History of chronic headaches Plan Stop the IV fluids Continue monitoring sodium level Urine osmolality levels have been sent Zofran for nausea and emesis, currently inactive in stable No clear indication for systemic steroids as the patient is not showing any significant hypoxemia or respiratory involvement No indication for Remdesivir Resume all medications Continue anticoagulation with Eliquis We'll follow
[2022-04-21] MEDS ORDERED: Potassium Replacement Protocol 1 EACH MISC MISCELLANE PRN (12:05)
[2022-04-21] MEDS: POTASSIUM CHLORIDE ER 20 MEQ TAB.ER PO SCH ×2 (15:01→16:32)
[2022-04-21] MEDS ORDERED: Magnesium Replacement Protocol 1 EACH MISC MISCELLANE PRN (15:53)
[2022-04-21] MEDS: DOCUSATE 100 MG CAP PO SCH ×2 (16:32→21:37)
[2022-04-21 18:34] LABS: Magnesium 2.1 mg/dL (1.6-2.3); Potassium 3.8 mmol/L (3.5-5.1)
--- NOTE | 2022-04-21 18:42 | P.PN ---
Subjective 71-year-old female patient was started proximally 4 days ago to have increased nausea, emesis, generalized fatigue, tiredness, chills and fever. Both the patient and her were diagnosed having COVID 19 infection 4 days ago. Her primary care physician has already started the patient on Paxlovid and the patient took it for a few days and the patient an upcoming interrupted because of worsening symptoms. No respiratory difficulties. No cough sputum production. No hypoxemia. Chest x-rays clear. Inflammatory markers show a d- dimer of 0.22, LDH level is 399, CRP level is at less than 0.5 and the patient's pro calcitonin level is at 0.03. Troponins are negative. Nevertheless, the patient's white cell count is at 2.2 and the patient has lymphopenia. The patient's sodium level was 119 probably related to diminished dietary intake and nausea and emesis. No significant acidosis or alkalosis. The patient's serum bicarbs at 22 with anion gap of 10. Potassium level is at 4.0. Chloride is 87. LFTs are normal. I'm resuming care of the patient today 04/21/22 Patient today was More energetic, she couldn't walk to the bathroom with minimal difficulty. She has no dyspnea, no coughing. However she was feeling weak and shaky earlier, now feels better. She has normal bowel movement and she is little constipated. No urinary complaints. Sodium improved this morning 1:30, it was 119 on admission. When I came in the morning patient was on normal saline 100 mL per hour although it's is ordered as 130, as per staff for by the fluid was also on hold because she wasn't sure, I searched her to check sodium level and keep patient on IV fluid total sodium result back. Later on IV fluid discontinued without resuming it actually Also patient is an Eliquis with hemoglobin down to 12 down to 10.6, this is the lower rate was., We'll do anemia workup Potassium and magnesium replaced Keep monitoring, discussed with patient and she agrees to stay Objective - Vital Signs Vital signs: Vital Signs Temp 97.8 F 04/21/22 14:40 Pulse 60 04/21/22 14:40 Resp 18 04/21/22 14:40 BP 147/70 04/21/22 14:40 Pulse Ox 92 L 04/21/22 14:40 FiO2 Intake & Output 04/20/22 04/21/22 04/21/22 18:59 06:59 18:59 Intake Total 2598 Output Total 400 300 Balance 2198 -300 Intake: Intake, IV Titration 2598 Amount Sodium Chloride 0.9% 1, 600 000 ml @ 130 mls/hr IV . Q7H42M [facility] Rx#:[id number] Sodium Chloride 0.9% 1, 999 000 ml @ 999 mls/hr IV . Q1H1M [facility] Rx#:[id number] Sodium Chloride 0.9% 1, 999 000 ml @ 999 mls/hr IV . Q1H1M [facility] Rx#:[id number] Output: Urine 400 300 Other: Voiding Method External Catheter - Exam GENERAL: The patient is alert and oriented x3, not in any acute distress. Well developed, well nourished. HEENT: Pupils are round and equally reacting to light. EOMI. No scleral icterus. No conjunctival pallor. Normocephalic, atraumatic. No pharyngeal erythema. No thyromegaly. CARDIOVASCULAR: S1 and S2 present. No murmurs, rubs, or gallops. PULMONARY: Chest is clear to auscultation, no wheezing or crackles. ABDOMEN: Soft, nontender, nondistended, normoactive bowel sounds. No palpable organomegaly. MUSCULOSKELETAL: No joint swelling or deformity. EXTREMITIES: No cyanosis, clubbing, or pedal edema. NEUROLOGICAL: Gross neurological examination did not reveal any focal deficits. SKIN: No rashes. no petechiae. - Labs CBC & Chem 7: 04/21/22 03:33 04/21/22 17:52 Labs: Abnormal Lab Results - Last 24 Hours (Table) 04/20/22 04/21/22 04/21/22 Range/Units 05:25 03:33 03:33 WBC 3.38 L (4.50-10.00) X 10*3/uL RBC 3.44 L (4.10-5.20) X 10*6/uL Hgb 10.6 L (12.0-15.0) g/dL Hct 30.3 L (37.2-46.3) % Lymphocytes # 0.46 L (0.90-5.00) X 10*3/uL Monocytes # 0.15 L (0.20-1.00) X 10*3/uL Eosinophils # 0 L (0.04-0.35) X 10*3/uL Sodium 124 L (135-145) mmol/L Potassium 3.4 L (3.5-5.5) mmol/L Chloride 92 L (96-109) mmol/L Carbon Dioxide 18.4 L (20.0-27.5) mmol/L Glucose 139 H (70-110) mg/dL Calcium 8.2 L (8.7-10.3) mg/dL Ferritin 403.0 H (10.0-291.0) ng/mL Total Protein 5.8 L (6.2-8.2) g/dL 04/21/22 04/21/22 Range/Units 09:32 14:25 WBC (4.50-10.00) X 10*3/uL RBC (4.10-5.20) X 10*6/uL Hgb (12.0-15.0) g/dL Hct (37.2-46.3) % Lymphocytes # (0.90-5.00) X 10*3/uL Monocytes # (0.20-1.00) X 10*3/uL Eosinophils # (0.04-0.35) X 10*3/uL Sodium 130 L 130 L (135-145) mmol/L Potassium 3.2 L (3.5-5.5) mmol/L Chloride 95 L (96-109) mmol/L Carbon Dioxide 18 L (20.0-27.5) mmol/L Glucose (70-110) mg/dL Calcium (8.7-10.3) mg/dL Ferritin (10.0-291.0) ng/mL Total Protein (6.2-8.2) g/dL Assessment and Plan Assessment: hyponatremia, improved Covid infection with no pneumonia or hypoxia Anemia with a drop of hemoglobin Hypertension Hyperlipidemia Chronic atrial fibrillation on liquids History of coronary artery disease Plan: This is a pleasant 71 years old female with Covid infection, hyponatremia and anemia. Sodium improved and breaker mechanic on the case, keep monitoring sodium level. Normal saline discontinued this morning, we'll keep 05 with fluid. Covid infection with no pneumonia, continue with vitamin C, D and zinc and Eliquis. Pulmonary and ID team on the case. Also patient on dexamethasone. Anemia workup and monitor hemoglobin. Labs and medication were reviewed.. Continue same treatment. Continue with s ymptomatic treatment. Resume home medication. Monitor lytes and vitals. DVT and GI prophylaxis. Further recommendations as per clinical course of the patient DVT prophylaxis: Eliquis GI Prophylaxis: Ppi PT/OT: Pending
[2022-04-21] MEDS: clonazePAM 0.5 MG TAB PO PRN (20:52)
[2022-04-21 23:30] LABS: % Iron Saturation 28.41 (12.00-45.00)
[2022-04-22 07:21] VITALS: BP 177/77; PULSE 58; RESP 17; TEMP 98.8
[2022-04-22] MEDS ORDERED: PANTOPRAZOLE 40 MG TABLET PO SCH (07:30)
[2022-04-22] MEDS: DEXAMETHASONE SOD PHOSPHATE 10 MG/ML 1 ML VIAL IVP SCH (08:31)
[2022-04-22 09:04] LABS: Basophils # (A) 0 X 10*3/uL (0.00-0.10); Basophils % (A) 0 %; Eosinophils # (A) 0 X 10*3/uL (0.04-0.35); Eosinophils % (A) 0 %; HGB 10.2 g/dL (12.0-15.0); Immature Grans, Automated 0.6 %; Lymphocytes # (A) 0.37 X 10*3/uL (0.90-5.00); Lymphocytes % (A) 4.1 %; MCH 29.9 pg (27.0-32.0); MCHC 32.9 g/dL (32.0-37.0); MCV 90.9 fL (80.0-97.0); Mean Platelet Volume 11.5 fL (9.5-12.2); Monocytes # (A) 0.39 X 10*3/uL (0.20-1.00); Monocytes % (A) 4.3 %; NRBC Per 100 WBC 0 /100 WBCS (0.0-0.0); Neutrophils # (A) 8.22 X 10*3/uL (1.80-7.70); Platelet Count 162 X 10*3/uL (140-440); RBC 3.41 X 10*6/uL (4.10-5.20); RDW 12.9 % (11.5-14.5); WBC 9.03 X 10*3/uL (4.50-10.00)
[2022-04-22] MEDS: DOCUSATE 100 MG CAP PO SCH (09:18)
[2022-04-22] MEDS: ASCORBIC ACID 500 MG TAB PO SCH (09:18)
[2022-04-22] MEDS: METOPROLOL TARTRATE 12.5 MG TAB PO SCH (09:18)
[2022-04-22] MEDS: RANOLAZINE 500 MG TAB.ER.12H PO SCH (09:18)
[2022-04-22] MEDS: CHOLECALCIFEROL 25 MCG (1000 IU) TABLET PO SCH (09:18)
[2022-04-22] MEDS: APIXABAN 5 MG TAB PO SCH (09:18)
[2022-04-22] MEDS: ZINC SULFATE 220 MG CAP PO SCH (09:18)
[2022-04-22] MEDS: ASPIRIN 81 MG PO SCH (09:18)
[2022-04-22 09:25] LABS: Magnesium 2.3 mg/dL (1.5-2.4)
[2022-04-22 09:33] LABS: African American GFR (CKD) 99.6 (60.0-200.0); Anion Gap 11.1 mmol/L (10.00-18.00); Blood Urea Nitrogen 18.2 mg/dL (9.0-27.0); Calcium 8.2 mg/dL (8.7-10.3); Carbon Dioxide 18.9 mmol/L (20.0-27.5); Potassium 4.5 mmol/L (3.5-5.5)
--- NOTE | 2022-04-22 12:13 | P.PN ---
Subjective Patient is seen for follow-up for hyponatremia which appears to be hypovolemic and improved with normal saline. patient also tested positive for COVID-19 PCR. Currently denies any complaints of shortness of breath nausea or vomiting. Serum sodium has been staying at 1:30. Patient is currently off of IV fluids. She is tolerating oral intake. Objective - Vital Signs Vital signs: Vital Signs Temp 98.8 F 04/22/22 07:20 Pulse 58 L 04/22/22 07:20 Resp 17 04/22/22 07:20 BP 177/77 04/22/22 07:20 Pulse Ox 98 04/22/22 07:20 FiO2 Intake & Output 04/21/22 04/22/22 04/22/22 18:59 06:59 18:59 Other: Voiding Method Toilet # Voids 3 # Bowel Movements 2 - Exam Patient is awake, comfortable, not in any acute distress Alert oriented 3 Patient is euvolemic with no evidence of edema in the lower extremities. - Labs CBC & Chem 7: 04/22/22 04:02 04/22/22 04:02 Labs: Abnormal Lab Results - Last 24 Hours (Table) 04/21/22 04/21/22 04/21/22 Range/Units 13:57 14:25 17:52 RBC (4.10-5.20) X 10*6/uL Hgb (12.0-15.0) g/dL Hct (37.2-46.3) % Immature Gran # (0.00-0.04) X 10*3/uL Neutrophils # (1.80-7.70) X 10*3/uL Lymphocytes # (0.90-5.00) X 10*3/uL Eosinophils # (0.04-0.35) X 10*3/uL Sodium 130 L (137-145) mmol/L Carbon Dioxide (20.0-27.5) mmol/L BUN/Creatinine Ratio (12.00-20.00) Ratio Glucose (70-110) mg/dL Calcium (8.7-10.3) mg/dL Ferritin 370.0 H (10.0-291.0) ng/mL Vitamin B12 992.0 H (200.0-944.0) pg/mL Ur Random Sodium <20 L (40-220) mmol/L 04/22/22 04/22/22 Range/Units 04:02 04:02 RBC 3.41 L (4.10-5.20) X 10*6/uL Hgb 10.2 L (12.0-15.0) g/dL Hct 31.0 L (37.2-46.3) % Immature Gran # 0.05 H (0.00-0.04) X 10*3/uL Neutrophils # 8.22 H (1.80-7.70) X 10*3/uL Lymphocytes # 0.37 L (0.90-5.00) X 10*3/uL Eosinophils # 0 L (0.04-0.35) X 10*3/uL Sodium 130 L (137-145) mmol/L Carbon Dioxide 18.9 L (20.0-27.5) mmol/L BUN/Creatinine Ratio 26.00 H (12.00-20.00) Ratio Glucose 123 H (70-110) mg/dL Calcium 8.2 L (8.7-10.3) mg/dL Ferritin (10.0-291.0) ng/mL Vitamin B12 (200.0-944.0) pg/mL Ur Random Sodium (40-220) mmol/L Assessment and Plan Assessment: 1. Hypovolemic hyponatremia currently improved with IV hydration. Serum sodium staying at 1:30. Currently patient is off of IV fluids. Urine osmolality was 465 and random urine sodium less than 20. 2. COVID-19 infection with chest x-ray showing prominent pulmonary interstitial markings. Currently not hypoxic. Maintained on room air 3. Volume depletion 4. Mild metabolic acidosis. No history of diarrhea possible lactic acidosis 5. Hypertension most likely exacerbated with NSAIDs and steroids Plan: Patient can be discharged from nephrology standpoint. She is advised to maintain good oral intake including protein. Repeat labs as outpatient in about 3-4 days
--- NOTE | 2022-04-22 22:31 | P.DS ---
Providers Date of admission: 04/20/22 05:32 Attending physician: Javed Chavez Consults: 04/20/22 05:33 Consult Physician Routine Consulting Provider: Jonel Andrews Consult Reason/Comments: covid Do you want consulting provider notified?: Yes 04/20/22 09:46 Consult Physician Routine Consulting Provider: Fazal Ruffin Consult Reason/Comments: COVID 19 infecrtion Do you want consulting provider notified?: Yes 04/21/22 08:44 Consult Physician Urgent Consulting Provider: Elizabet Guillen Consult Reason/Comments: hyponatremia Do you want consulting provider notified?: Yes Primary care physician: Lizzy Mackey Hospital Course: Please note patient was not discharged but left AGAINST MEDICAL ADVICE Diagnoses hyponatremia, improved Covid infection with no pneumonia or hypoxia Anemia with a drop of hemoglobin None) therapy, patient left AMA Hypertension Hyperlipidemia Chronic atrial fibrillation on liquids History of coronary artery disease Hospital course 71-year-old female patient was started proximally 4 days ago to have increased nausea, emesis, generalized fatigue, tiredness, chills and fever. Both the patient and her were diagnosed having COVID 19 infection 4 days ago. Her primary care physician has already started the patient on Paxlovid and the patient took it for a few days and the patient an upcoming interrupted because of worsening symptoms. No respiratory difficulties. No cough sputum production. No hypoxemia. Chest x-rays clear. Inflammatory markers show a d- dimer of 0.22, LDH level is 399, CRP level is at less than 0.5 and the patient's pro calcitonin level is at 0.03. Troponins are negative. Nevertheless, the patient's white cell count is at 2.2 and the patient has lymphopenia. The patient's sodium level was 119 probably related to diminished dietary intake and nausea and emesis. No significant acidosis or alkalosis. The patient's serum bicarbs at 22 with anion gap of 10. Potassium level is at 4.0. Chloride is 87. LFTs are normal. I'm resuming care of the patient today 04/21/22 Patient today was More energetic, she couldn't walk to the bathroom with minimal difficulty. She has no dyspnea, no coughing. However she was feeling weak and shaky earlier, now feels better. She has normal bowel movement and she is little constipated. No urinary complaints. Sodium improved this morning 1:30, it was 119 on admission. When I came in the morning patient was on normal saline 100 mL per hour although it's is ordered as 130, as per staff for by the fluid was also on hold because she wasn't sure, I searched her to check sodium level and keep patient on IV fluid total sodium result back. Later on IV fluid discontinued without resuming it actually Also patient is an Eliquis with hemoglobin down to 12 down to 10.6, this is the lower rate was., We'll do anemia workup Potassium and magnesium replaced Keep monitoring, discussed with patient and she agrees to stay 04/22/2022 Patient today is fully awake and oriented Her hemoglobin is still around 10, hemodynamically stable. She is on Eliquis this morning she told me she does not want to stay in the hospital and wants to leave AGAINST MEDICAL ADVICE, patient informed about her problems and management plan, she still was adamant to leave AMA. Risks and benefits and alternatives are explained for her in details. Patient told me she will go and see her primary doctor in a few days. I told the patient if anything can do to prevent her from leaving AMA and she declined to uncertain. Based upon my evaluation patient has capacity to make medical decision Physical exam Gen: patient is a AAOx3, no distress CVS: S1-S2, RRR, no murmur Lungs: B/L CTA, no wheezing Abdomen: soft, no distention, no tenderness, positive bowel sounds Extremity: no leg edema or induration Time spent more than 35 minutes Patient Condition at Discharge: Fair Plan - Discharge Summary New Discharge Prescriptions: No Action Aspirin 81 mg PO DAILY Ubidecarenone [Co Q-10] 100 mg PO DAILY [place]-3 Fatty Acids/Fish Oil [Fish Oil 1,000 mg Softgel] 1 cap PO DAILY Herbal Laxative 1 tab PO DAILY PRN PRN Reason: Constipation Green Gold Nutrition (Mineral /Vitamin Supplement) 1 tab PO DAILY Ginkgo Biloba 1 tab PO DAILY Nitroglycerin [Nitromist] 1 spray SL Q5M PRN PRN Reason: Chest Pain clonazePAM [KlonoPIN] 0.25 mg PO HS PRN PRN Reason: Insomnia Ranolazine [Ranexa] 1,000 mg PO Q12HR Nitroglycerin Sl Tabs [Nitrostat] 0.4 mg SL Q5M PRN PRN Reason: Chest Pain Apixaban [Eliquis] 5 mg PO BID Magnesium Taurate 400 mg PO BID Nirmatrelvir/Ritonavir [Paxlovid Co-Pack (Eua)] 3 tab PO BID Turmeric Root Extract [Turmeric] 500 mg PO DAILY Metoprolol Tartrate [Lopressor] 12.5 mg PO BID Red Yeast Rice 600 mg PO DAILY Ondansetron [Zofran] 4 mg PO TID PRN PRN Reason: Nausea Rosuvastatin Calcium [Crestor] 5 mg PO DAILY Discharge Medication List Aspirin 81 mg PO DAILY 06/24/15 [History] Ginkgo Biloba 1 tab PO DAILY 06/06/16 [History] Green Gold Nutrition (Mineral /Vitamin Supplement) 1 tab PO DAILY 06/06/16 [History] Herbal Laxative 1 tab PO DAILY PRN 06/06/16 [History] [place]-3 Fatty Acids/Fish Oil [Fish Oil 1,000 mg Softgel] 1 cap PO DAILY 06/06/16 [History] Ubidecarenone [Co Q-10] 100 mg PO DAILY 06/06/16 [History] Nitroglycerin [Nitromist] 1 spray SL Q5M PRN 06/09/16 [History] Apixaban [Eliquis] 5 mg PO BID 03/03/22 [History] Magnesium Taurate 400 mg PO BID 03/03/22 [History] Metoprolol Tartrate [Lopressor] 12.5 mg PO BID 03/03/22 [History] Nitroglycerin Sl Tabs [Nitrostat] 0.4 mg SL Q5M PRN 03/03/22 [History] Ranolazine [Ranexa] 1,000 mg PO Q12HR 03/03/22 [History] Red Yeast Rice 600 mg PO DAILY 03/03/22 [History] Turmeric Root Extract [Turmeric] 500 mg PO DAILY 03/03/22 [History] clonazePAM [KlonoPIN] 0.25 mg PO HS PRN 03/03/22 [History] Nirmatrelvir/Ritonavir [Paxlovid Co-Pack (Eua)] 3 tab PO BID 04/20/22 [History] Ondansetron [Zofran] 4 mg PO TID PRN 04/20/22 [History] Rosuvastatin Calcium [Crestor] 5 mg PO DAILY 04/20/22 [History] Follow up Appointment(s)/Referral(s): Lizzy Mackey DO [Primary Care Provider] - 04/28/22 2:20 pm Discharge Disposition: Left Against Medical Advice
== END 2022-04-22 11:55 | disposition left against medical advice (07) | DRG 640 ==
LOC: EC 03:52 → 4SSUR 05:32
PROVIDERS: ADMIT Hospitalist; ATTEND Hospitalist
DX: E87.1 Hypo-osmolality and hyponatremia (principal); U07.1 COVID-19; E46 Unspecified protein-calorie malnutrition; E87.0 Hyperosmolality and hypernatremia; Z53.29 Procedure and treatment not carried out because of patient's decision for other reasons; Z28.310 Unvaccinated for COVID-19; Z68.23 Body mass index [BMI] 23.0-23.9, adult; E87.2 Acidosis; I10 Essential (primary) hypertension; D64.9 Anemia, unspecified; I25.10 Atherosclerotic heart disease of native coronary artery without angina pectoris; T38.0X5A Adverse effect of glucocorticoids and synthetic analogues, initial encounter; E86.9 Volume depletion, unspecified; I48.0 Paroxysmal atrial fibrillation; R00.1 Bradycardia, unspecified; D70.9 Neutropenia, unspecified; T39.395A Adverse effect of other nonsteroidal anti-inflammatory drugs [NSAID], initial encounter; D72.810 Lymphocytopenia; I25.2 Old myocardial infarction; E78.5 Hyperlipidemia, unspecified; E86.0 Dehydration; E86.1 Hypovolemia; K59.00 Constipation, unspecified; Z79.01 Long term (current) use of anticoagulants; Z79.82 Long term (current) use of aspirin; Z79.899 Other long term (current) drug therapy; Z82.49 Family history of ischemic heart disease and other diseases of the circulatory system; Z83.3 Family history of diabetes mellitus; Z87.891 Personal history of nicotine dependence; Z91.040 Latex allergy status; X58.XXXA Exposure to other specified factors, initial encounter
CPT/HCPCS: 36415; 71045; 80048; 80051; 80053; 82607; 82728; 82746; 83540; 83550; 83605; 83615; 83735; 83880; 83935; 84100; 84132; 84145; 84295; 84300; 84484; 85025; 85379; 85610; 85730; 86140; 87635; 93005; 94640; 96374; 96375; 96376; 99285

== ENCOUNTER → 2023-05-29 | Outpatient (CLI) | payer MEDICARE ==
[2023-05-29 14:28] LABS: Prothrombin Time 120.3 sec (9.0-12.0)
[2023-05-29 14:53] LABS: INR >10.0 (<1.2)
== END | disposition home or self-care (01) ==
LOC: LABWHC1 12:09
PROVIDERS: ATTEND Nurse Practitioner Acute Care
DX: I48.0 Paroxysmal atrial fibrillation (principal)
CPT/HCPCS: 36415; 85610

== ENCOUNTER 2023-07-05 08:41 | Emergency (ER) | payer MEDICARE ==
[2023-07-05] MEDS ORDERED: SODIUM CHLORIDE 0.9% 1,000 ML IV STA (08:59)
--- NOTE | 2023-07-05 09:35 | ED ---
General Adult HPI - General Chief complaint: Urogenital Stated complaint: Fever Time Seen by Provider: 07/05/23 08:42 Source: patient, EMS, RN notes reviewed Mode of arrival: EMS Limitations: no limitations - History of Present Illness Initial comments: This a 73-year-old female presents emergency from via EMS chief complaint of a fever. Patient states less states she's had some urinary symptoms including dysuria, urinary frequency. Patient states that she was taking [id number] medication to help. She reports having fevers yesterday and went right flank pain. Patient states fever was controlled along with or chills after acetaminophen she had a temp at home 102.3. Patient states she had episode of vomiting this morning which prompted come emergency department. Patient denies any current nausea denies any chest pain denies any cough or cold like symptoms. - Related Data Home Medications Medication Instructions Recorded Confirmed Aspirin 81 mg PO DAILY 06/24/15 04/20/22 Ginkgo Biloba 1 tab PO DAILY 06/06/16 04/20/22 Green Gold Nutrition (Mineral 1 tab PO DAILY 06/06/16 04/20/22 /Vitamin Supplement) Herbal Laxative 1 tab PO DAILY PRN 06/06/16 04/20/22 [place]-3 Fatty Acids/Fish Oil [Fish 1 cap PO DAILY 06/06/16 04/20/22 Oil 1,000 mg Softgel] Ubidecarenone [Co Q-10] 100 mg PO DAILY 06/06/16 04/20/22 Nitroglycerin [Nitromist] 1 spray SL Q5M PRN 06/09/16 04/20/22 Apixaban [Eliquis] 5 mg PO BID 03/03/22 04/20/22 Magnesium Taurate 400 mg PO BID 03/03/22 04/20/22 Metoprolol Tartrate [Lopressor] 12.5 mg PO BID 03/03/22 04/20/22 Nitroglycerin Sl Tabs [Nitrostat] 0.4 mg SL Q5M PRN 03/03/22 04/20/22 Ranolazine [Ranexa] 1,000 mg PO Q12HR 03/03/22 04/20/22 Red Yeast Rice 600 mg PO DAILY 03/03/22 04/20/22 Turmeric Root Extract [Turmeric] 500 mg PO DAILY 03/03/22 04/20/22 clonazePAM [KlonoPIN] 0.25 mg PO HS PRN 03/03/22 04/20/22 Nirmatrelvir/Ritonavir [Paxlovid 3 tab PO BID 04/20/22 04/20/22 Co-Pack (Eua)] Ondansetron [Zofran] 4 mg PO TID PRN 04/20/22 04/20/22 Rosuvastatin Calcium [Crestor] 5 mg PO DAILY 04/20/22 04/20/22 Previous Rx's Medication Instructions Recorded Cephalexin [Keflex] 500 mg PO Q8HR #30 cap 07/05/23 Allergies Allergy/AdvReac Type Severity Reaction Status Date / Time latex Allergy Intermediate Rash/Hives Verified 04/20/22 12:20 Review of Systems ROS Statement: Those systems with pertinent positive or pertinent negative responses have been documented in the HPI. ROS Other: All systems not noted in ROS Statement are negative. Past Medical History Past Medical History: Atrial Fibrillation, Coronary Artery Disease (CAD), Hyperlipidemia, Hypertension, Myocardial Infarction (MT), Osteoarthritis (OA) Additional Past Medical History / Comment(s): CHRONIC HEADACHES, CHRONIC CONSTIPATION, CARPAL TUNNEL WITH RECENT STEROID INJECTION. , STATES OCCASIONAL TIGHTNESS IN HER CHEST WITH EXERCISE., SEE CARDIOLOGY H & P. Last Myocardial Infarction Date:: 2005 History of Any Multi-Drug Resistant Organisms: None Reported Past Surgical History: Heart Catheterization With Stent Past Anesthesia/Blood Transfusion Reactions: No Reported Reaction Date of Last Stent Placement:: 2005 Past Psychological History: No Psychological Hx Reported Smoking Status: Former smoker Past Alcohol Use History: None Reported Past Drug Use History: None Reported - Past Family History Father Family Medical History: Coronary Artery Disease (CAD) Additional Family Medical History / Comment(s): Heart disease Mother Family Medical History: Coronary Artery Disease (CAD), Diabetes Mellitus Additional Family Medical History / Comment(s): heart disease Brother(s) Family Medical History: Cancer, Coronary Artery Disease (CAD) Additional Family Medical History / Comment(s): PROSTATE CANCER Sister(s) Family Medical History: No Reported History Daughter(s) Family Medical History: No Reported History Son(s) Family Medical History: No Reported History Additional Family Medical History / Comment(s): Patient has 11 grandkids. General Exam General appearance: alert, in no apparent distress Head exam: Present: atraumatic, normocephalic, normal inspection Neck exam: Present: normal inspection, full ROM. Absent: tenderness, meningismus, lymphadenopathy Respiratory exam: Present: normal lung sounds bilaterally. Absent: respiratory distress, wheezes, rales, rhonchi, stridor Cardiovascular Exam: Present: regular rate, normal rhythm, normal heart sounds. Absent: systolic murmur, diastolic murmur, rubs, gallop, clicks GI/Abdominal exam: Present: soft, normal bowel sounds. Absent: distended, tenderness, guarding, rebound, rigid Back exam: Present: CVA tenderness (R). Absent: CVA tenderness (L) Course Vital Signs 07/05/23 07/05/23 07/05/23 08:42 09:40 12:10 Temperature 100.3 F H 98.8 F Pulse Rate 96 80 Respiratory 18 17 Rate Blood Pressure 101/60 101/60 100/64 O2 Sat by Pulse 96 97 100 Oximetry 07/05/23 12:58 Temperature Pulse Rate 74 Respiratory 18 Rate Blood Pressure 124/54 O2 Sat by Pulse 97 Oximetry Medical Decision Making - Medical Decision Making Was pt. sent in by a medical professional or institution (, PA, PRODUCE PRODUCTION TEAM MEMBER, urgent care, hospital, or group home...) When possible be specific @ -No Did you speak to anyone other than the patient for history (EMS, parent, family, police, friend...)? What history was obtained from this source @ -Feeling lightheaded since. Past medical history Did you review nursing and triage notes (agree or disagree)? Why? @ -I reviewed and agree with nursing and triage notes Were old charts reviewed (outside hosp., previous admission, EMS record, old EKG, old radiological studies, urgent care reports/EKG's, group home records)? Report findings @ -No old charts were reviewed Differential Diagnosis (chest pain, altered mental status, abdominal pain women, abdominal pain men, vaginal bleeding, weakness, fever, dyspnea, syncope, headache, dizziness, GI bleed, back pain, seizure, CVA, palpatations, mental health, musculoskeletal)? @ -nDifferential Abdominal Pain Women: Appendicitis, Cholecystitis, diverticulosis, ischemic bowel, pancreatitis, hepatitis, UTI, gastroenteritis, AAA, incarcerated hernia, bowel obstruction, c onstipation, inflammatory bowel, hepatitis, peptic ulcer disease, splenic infarction, perforated viscus, vulvitis, ovarian torsion, PID, kidney stone, placenta abruption, this is not meant to be an all-inclusive listble EKG interpreted by me (3pts min.). @ -None X-rays interpreted by me (1pt min.). @ -None done CT interpreted by me (1pt min.). @ -None done U/S interpreted by me (1pt. min.). @ -None done What testing was considered but not performed or refused? (CT, X-rays, U/S, labs)? Why? @ -None What meds were considered but not given or refused? Why? @ -None Did you discuss the management of the patient with other professionals (professionals i.e. , PA, PRODUCE PRODUCTION TEAM MEMBER, lab, RT, psych nurse, director social welfare, powder truck driver, teacher, certification officer, rn case management)? Give summary @ -No Was smoking cessation discussed for >3mins.? @ -No Was critical care preformed (if so, how long)? @ -No Were there social determinants of health that impacted care today? How? (Homelessness, low income, unemployed, alcoholism, drug addiction, transportation, low edu. Level, literacy, decrease access to med. care, nursing home, rehab)? @ -No Was there de-escalation of care discussed even if they declined (Discuss DNR or withdrawal of care, Hospice)? DNR status @ -No What co-morbidities impacted this encounter? (DM, HTN, Smoking, COPD, CAD, Cancer, CVA, ARF, Chemo, Hep., AIDS, mental health diagnosis, sleep apnea, morbid obesity)? @ -None Was patient admitted / discharged? Hospital course, mention meds given and route, prescriptions, significant lab abnormalities, going to OR and other pertinent info. @ -Discharge patient has evidence of UTI, probable early pyelonephritis. Patient has no significant leukocytosis. She does show mild tenderness dehydration, hyponatremia and hypokalemia. I did offer patient admission patient feels comfortable discharge as her IV antibiotics, oral antibiotics at home she'll have recheck in 24-48 hours return for worsening Symptoms. Family agree to this plan. Undiagnosed new problem with uncertain prognosis? @ -No Drug Therapy requiring intensive monitoring for toxicity (Heparin, Nitro, Insulin, Cardizem)? @ -No Were any procedures done? @ -No Diagnosis/symptom? @ -Pyelonephritis hyponatremia, hypokalemia Acute, or Chronic, or Acute on Chronic? @ -Acute Uncomplicated (without systemic symptoms) or Complicated (systemic symptoms)? @ -complicated Side effects of treatment? @ -No Exacerbation, Progression, or Severe Exacerbation? @ -No Poses a threat to life or bodily function? How? (Chest pain, USA, MT, pneumonia, PE, COPD, DKA, ARF, appy, cholecystitis, CVA, Diverticulitis, Homicidal, Suicidal, threat to staff... and all critical care pts) @ -No - Lab Data Result diagrams: 07/05/23 09:07/05/23 09: Lab Results 07/05/23 07/05/23 07/05/23 Range/Units 09: 09: 09: WBC 6.7 (3.8-10.6) k/uL RBC 3.34 L (3.80-5.40) m/uL Hgb 10.8 L (11.4-16.0) gm/dL Hct 30.4 L (34.0-46.0) % MCV 91.1 (80.0-100.0) fL MCH 32.5 (25.0-35.0) pg MCHC 35.6 (31.0-37.0) g/dL RDW 12.6 (11.5-15.5) % Plt Count 147 L (150-450) k/uL MPV 8.4 Neutrophils % 93 % Lymphocytes % 3 % Monocytes % 2 % Eosinophils % 2 % Basophils % 0 % Neutrophils # 6.3 (1.3-7.7) k/uL Lymphocytes # 0.2 L (1.0-4.8) k/uL Monocytes # 0.1 (0-1.0) k/uL Eosinophils # 0.1 (0-0.7) k/uL Basophils # 0.0 (0-0.2) k/uL PT (9.0-12.0) sec INR (<1.2) Sodium 127 L (137-145) mmol/L Potassium 3.2 L (3.5-5.1) mmol/L Chloride 96 L (98-107) mmol/L Carbon Dioxide 23 (22-30) mmol/L Anion Gap 8 mmol/L BUN 12 (7-17) mg/dL Creatinine 0.85 (0.52-1.04) mg/dL Est GFR (CKD-EPI)AfAm 78 (>60 ml/min/1.73 sqM) Est GFR (CKD-EPI)NonAf 68 (>60 ml/min/1.73 sqM) Glucose 112 H (74-99) mg/dL Plasma Lactic Acid Kali 1.2 (0.7-2.0) mmol/L Calcium 8.1 L (8.4-10.2) mg/dL Total Bilirubin 1.1 (0.2-1.3) mg/dL AST 47 H (14-36) U/L ALT 27 (4-34) U/L Alkaline Phosphatase 112 (38-126) U/L Total Protein 5.5 L (6.3-8.2) g/dL Albumin 3.3 L (3.5-5.0) g/dL Lipase 67 (23-300) U/L Urine Color Urine Appearance (Clear) Urine pH (5.0-8.0) Ur Specific [place] (1.001-1.035) Urine Protein (Negative) Urine Glucose (UA) (Negative) Urine Ketones (Negative) Urine Blood (Negative) Urine Nitrite (Negative) Urine Bilirubin (Negative) Urine Urobilinogen (<2.0) mg/dL Ur Leukocyte Esterase (Negative) Urine RBC (0-5) /hpf Urine WBC (0-5) /hpf Urine WBC Clumps (None) /hpf Urine Bacteria (None) /hpf Urine Mucus (None) /hpf 07/05/23 07/05/23 Range/Units 09:51 09:51 WBC (3.8-10.6) k/uL RBC (3.80-5.40) m/uL Hgb (11.4-16.0) gm/dL Hct (34.0-46.0) % MCV (80.0-100.0) fL MCH (25.0-35.0) pg MCHC (31.0-37.0) g/dL RDW (11.5-15.5) % Plt Count (150-450) k/uL MPV Neutrophils % % Lymphocytes % % Monocytes % % Eosinophils % % Basophils % % Neutrophils # (1.3-7.7) k/uL Lymphocytes # (1.0-4.8) k/uL Monocytes # (0-1.0) k/uL Eosinophils # (0-0.7) k/uL Basophils # (0-0.2) k/uL PT 38.1 H (9.0-12.0) sec INR 3.9 H (<1.2) Sodium (137-145) mmol/L Potassium (3.5-5.1) mmol/L Chloride (98-107) mmol/L Carbon Dioxide (22-30) mmol/L Anion Gap mmol/L BUN (7-17) mg/dL Creatinine (0.52-1.04) mg/dL Est GFR (CKD-EPI)AfAm (>60 ml/min/1.73 sqM) Est GFR (CKD-EPI)NonAf (>60 ml/min/1.73 sqM) Glucose (74-99) mg/dL Plasma Lactic Acid [place]ali (0.7-2.0) mmol/L Calcium (8.4-10.2) mg/dL Total Bilirubin (0.2-1.3) mg/dL AST (14-36) U/L ALT (4-34) U/L Alkaline Phosphatase (38-126) U/L Total Protein (6.3-8.2) g/dL Albumin (3.5-5.0) g/dL Lipase (23-300) U/L Urine Color Light Red Urine Appearance Cloudy H (Clear) Urine pH 6.0 (5.0-8.0) Ur Specific [place] 1.012 (1.001-1.035) Urine Protein 2+ H (Negative) Urine Glucose (UA) Negative (Negative) Urine Ketones 1+ H (Negative) Urine Blood Large H (Negative) Urine Nitrite Positive H (Negative) Urine Bilirubin Negative (Negative) Urine Urobilinogen <2.0 (<2.0) mg/dL Ur Leukocyte Esterase Large H (Negative) Urine RBC 143 H (0-5) /hpf Urine WBC >182 H (0-5) /hpf Urine WBC Clumps Many H (None) /hpf Urine Bacteria Moderate H (None) /hpf Urine Mucus Rare H (None) /hpf Disposition Clinical Impression: Dehydration, Pyelonephritis Disposition: HOME SELF-CARE Condition: Stable Instructions (If sedation given, give patient instructions): Kidney Infection (ED) Additional Instructions: Please return to the Emergency Department if symptoms worsen or any other concerns. Prescriptions: Cephalexin [Keflex] 500 mg PO Q8HR #30 cap Is patient prescribed a controlled substance at d/c from ED?: No Referrals: Lizzy Mackey DO [Primary Care Provider] - 1-2 days Time of Disposition: 12:21
[2023-07-05 10:17] LABS: Basophils % (A) 0 %; Eosinophils # (A) 0.1 k/uL (0-0.7); Eosinophils % (A) 2 %; HCT 30.4 % (34.0-46.0); HGB 10.8 gm/dL (11.4-16.0); Lymphocytes # (A) 0.2 k/uL (1.0-4.8); Lymphocytes % (A) 3 %; MCH 32.5 pg (25.0-35.0); MCHC 35.6 g/dL (31.0-37.0); MCV 91.1 fL (80.0-100.0); Mean Platelet Volume 8.4; Monocytes # (A) 0.1 k/uL (0-1.0); Monocytes % (A) 2 %; Neutrophils # (A) 6.3 k/uL (1.3-7.7); Neutrophils % (A) 93 %; Platelet Count 147 k/uL (150-450); RBC 3.34 m/uL (3.80-5.40); RDW 12.6 % (11.5-15.5); WBC 6.7 k/uL (3.8-10.6)
[2023-07-05 10:27] LABS: INR 3.9 (<1.2); Prothrombin Time 38.1 sec (9.0-12.0)
[2023-07-05 10:30] LABS: ALT 27 U/L (4-34); AST 47 U/L (14-36); African American GFR (CKD) 78 (>60 ml/min/1.73 sqM); Albumin 3.3 g/dL (3.5-5.0); Alkaline Phosphatase 112 U/L (38-126); Anion Gap 8 mmol/L; Blood Urea Nitrogen 12 mg/dL (7-17); Calcium 8.1 mg/dL (8.4-10.2); Carbon Dioxide 23 mmol/L (22-30); Chloride 96 mmol/L (98-107); Glucose 112 mg/dL (74-99); Lipase 67 U/L (23-300); Non-African American GFR(CKD) 68 (>60 ml/min/1.73 sqM); Potassium 3.2 mmol/L (3.5-5.1); Sodium 127 mmol/L (137-145); Total Bilirubin 1.1 mg/dL (0.2-1.3); Total Protein 5.5 g/dL (6.3-8.2)
[2023-07-05 11:58] LABS: Appearance,Urine Cloudy (Clear); Bacteria,Urine Moderate /hpf; Bilirubin,Urine Negative (Negative); Blood,Urine Large (Negative); Color,Urine Light Red; Glucose,Urine (UA) Negative (Negative); Ketones,Urine 1+ (Negative); Leukocyte Esterase,Urine Large (Negative); Mucus,Urine Rare /hpf; Nitrite,Urine Positive (Negative); Protein,Urine 2+ (Negative); RBC,Urine 143 /hpf (0-5); Specific Gravity,Urine 1.012 (1.001-1.035); Urobilinogen,Urine <2.0 mg/dL (<2.0); WBC,Urine >182 /hpf (0-5)
[2023-07-05 12:11] VITALS: TEMP 98.8
[2023-07-05] MEDS ORDERED: cefTRIAXone IN SWFI 1,000 MG/10 ML SYRINGE IVP STA (12:20)
[2023-07-05] MEDS ORDERED: POTASSIUM CHLORIDE ER 20 MEQ TAB.ER PO STA (12:20)
[2023-07-05 12:59] VITALS: BP 124/54; PULSE 74; RESP 18
== END 2023-07-05 12:59 | disposition home or self-care (01) ==
LOC: EC 08:41
DX: N12 Tubulo-interstitial nephritis, not specified as acute or chronic (principal); E86.0 Dehydration; E87.1 Hypo-osmolality and hyponatremia; E87.6 Hypokalemia; B96.89 Other specified bacterial agents as the cause of diseases classified elsewhere; I10 Essential (primary) hypertension; I25.2 Old myocardial infarction; I25.10 Atherosclerotic heart disease of native coronary artery without angina pectoris; I48.91 Unspecified atrial fibrillation; E78.5 Hyperlipidemia, unspecified; M19.90 Unspecified osteoarthritis, unspecified site; Z79.01 Long term (current) use of anticoagulants; Z79.82 Long term (current) use of aspirin; Z79.899 Other long term (current) drug therapy; Z91.040 Latex allergy status; Z87.891 Personal history of nicotine dependence
CPT/HCPCS: 36415; 80053; 83605; 83690; 85025; 85610; 81001; 87040; 87086; 99284; 96374; 96361; J0696

== ENCOUNTER 2023-07-06 11:10 | Inpatient (IN) | payer MEDICARE ==
[2023-07-06] MEDS ORDERED: SODIUM CHLORIDE 0.9% 1,000 ML IV STA (11:36)
[2023-07-06] MEDS ORDERED: MECLIZINE 12.5 MG TAB PO STA (11:37)
[2023-07-06] MEDS ORDERED: ONDANSETRON 4 MG/2 ML VIAL IVP STA (11:37)
--- NOTE | 2023-07-06 12:04 | ED ---
Dizziness HPI - General Chief Complaint: Dizziness Stated Complaint: dizziness, nausea Time Seen by Provider: 07/06/23 11:21 Source: patient, RN notes reviewed Mode of arrival: ambulatory Limitations: no limitations - History of Present Illness Initial Comments: 73-year-old female presents emergency Department chief complaint of UTI, come dizziness. Patient was seen here yesterday diagnosed with kidney infection. Patient was offered admission but felt well and went home. She was doing well up until earlier this morning which became very dizzy, nauseous again and she did have some vomiting. Patient denies any chest pain or shortness of breath. Patient denies any focal weakness she states her fever has resolved. - Related Data Home Medications Medication Instructions Recorded Confirmed Ranolazine [Ranexa] 1,000 mg PO Q12HR 03/03/22 07/06/23 Rosuvastatin Calcium [Crestor] 5 mg PO Q2D@2100 04/20/22 07/06/23 Aspirin 81 mg PO HS 07/06/23 07/06/23 Metoprolol Succinate (ER) [Toprol 37.5 mg PO HS 07/06/23 07/06/23 Xl] Pantoprazole Sodium 40 mg PO HS 07/06/23 07/06/23 Warfarin [Coumadin] 2.5 mg PO HS 07/06/23 07/06/23 Previous Rx's Medication Instructions Recorded Cephalexin [Keflex] 500 mg PO Q8HR #30 cap 07/05/23 Allergies Allergy/AdvReac Type Severity Reaction Status Date / Time latex Allergy Intermediate Rash/Hives Verified 07/06/23 12:40 Review of Systems ROS Statement: Those systems with pertinent positive or pertinent negative responses have been documented in the HPI. ROS Other: All systems not noted in ROS Statement are negative. Past Medical History Past Medical History: Atrial Fibrillation, Coronary Artery Disease (CAD), Hyperlipidemia, Hypertension, Myocardial Infarction ([place]), Osteoarthritis (OA) Additional Past Medical History / Comment(s): CHRONIC HEADACHES, CHRONIC CONSTIPATION, CARPAL TUNNEL WITH RECENT STEROID INJECTION. , STATES OCCASIONAL TIGHTNESS IN HER CHEST WITH EXERCISE., SEE CARDIOLOGY H & P. Last Myocardial Infarction Date:: 2005 History of Any Multi-Drug Resistant Organisms: None Reported Past Surgical History: Heart Catheterization With Stent Past Anesthesia/Blood Transfusion Reactions: No Reported Reaction Date of Last Stent Placement:: 2005 Past Psychological History: No Psychological Hx Reported Smoking Status: Former smoker Past Alcohol Use History: None Reported Past Drug Use History: None Reported - Past Family History Father Family Medical History: Coronary Artery Disease (CAD) Additional Family Medical History / Comment(s): Heart disease Mother Family Medical History: Coronary Artery Disease (CAD), Diabetes Mellitus Additional Family Medical History / Comment(s): heart disease Brother(s) Family Medical History: Cancer, Coronary Artery Disease (CAD) Additional Family Medical History / Comment(s): PROSTATE CANCER Sister(s) Family Medical History: No Reported History Daughter(s) Family Medical History: No Reported History Son(s) Family Medical History: No Reported History Additional Family Medical History / Comment(s): Patient has 11 grandkids. General Exam Limitations: no limitations General appearance: alert, in no apparent distress Head exam: Present: atraumatic, normocephalic, normal inspection Eye exam: Present: normal appearance, PERRL, EOMI. Absent: scleral icterus, conjunctival injection, periorbital swelling ENT exam: Present: normal exam, normal oropharynx, mucous membranes moist Neck exam: Present: normal inspection, full ROM. Absent: tenderness, meningismus, lymphadenopathy Respiratory exam: Present: normal lung sounds bilaterally. Absent: respiratory distress, wheezes, rales, rhonchi, stridor Cardiovascular Exam: Present: regular rate, normal rhythm, normal heart sounds. Absent: systolic murmur, diastolic murmur, rubs, gallop, clicks GI/Abdominal exam: Present: soft, normal bowel sounds. Absent: distended, t enderness, guarding, rebound, rigid Back exam: Present: CVA tenderness (R). Absent: CVA tenderness (L) Course Vital Signs 07/06/23 07/06/23 11:23 13:05 Temperature 98.7 F 98.4 F Pulse Rate 65 65 Respiratory 18 17 Rate Blood Pressure 172/100 152/71 O2 Sat by Pulse 98 98 Oximetry Medical Decision Making - Medical Decision Making Was pt. sent in by a medical professional or institution (, PA, APERTURE MASK ETCHER, urgent care, hospital, or assisted...) When possible be specific @ -No Did you speak to anyone other than the patient for history (EMS, parent, family, police, friend...)? What history was obtained from this source @ -Family providing sitting past history Did you review nursing and triage notes (agree or disagree)? Why? @ -I reviewed and agree with nursing and triage notes Were old charts reviewed (outside hosp., previous admission, EMS record, old EKG, old radiological studies, urgent care reports/EKG's, assisted records)? Report findings @ -Review the laboratory studies from yesterday Differential Diagnosis (chest pain, altered mental status, abdominal pain women, abdominal pain men, vaginal bleeding, weakness, fever, dyspnea, syncope, headache, dizziness, GI bleed, back pain, seizure, CVA, palpatations, mental health, musculoskeletal)? @ -Pyelonephritis, UTI, covid , bacteremia, hyponatremia EKG interpreted by me (3pts min.). @ -None X-rays interpreted by me (1pt min.). @ -None done CT interpreted by me (1pt min.). @ -None done U/S interpreted by me (1pt. min.). @ -None done What testing was considered but not performed or refused? (CT, X-rays, U/S, labs)? Why? @ -None What meds were considered but not given or refused? Why? @ -None Did you discuss the management of the patient with other professionals (professionals i.e. , PA, APERTURE MASK ETCHER, lab, RT, psych nurse, dialysis social worker, change coordinator, teacher, physics technical officer, telehealth case manager)? Give summary @ - sheet for admission given fell outpatient treatment, hypertension and pyelonephritis patient did have positive blood culture. Patient was started on Rocephin. Was smoking cessation discussed for >3mins.? @ -No Was critical care preformed (if so, how long)? @ -No Were there social determinants of health that impacted care today? How? ( Homelessness, low income, unemployed, alcoholism, drug addiction, transportation, low edu. Level, literacy, decrease access to med. care, group home, rehab)? @ -No Was there de-escalation of care discussed even if they declined (Discuss DNR or withdrawal of care, Hospice)? DNR status @ -No What co-morbidities impacted this encounter? (DM, HTN, Smoking, COPD, CAD, Cancer, CVA, ARF, Chemo, Hep., AIDS, mental health diagnosis, sleep apnea, morbid obesity)? @ -None Was patient admitted / discharged? Hospital course, mention meds given and route, prescriptions, significant lab abnormalities, going to OR and other pertinent info. @ -Admitted patient has failure of outpatient treatment of pyelonephritis, patient does have dizziness and hyponatremia. Patient was started on IV fluid hydration Undiagnosed new problem with uncertain prognosis? @ -No Drug Therapy requiring intensive monitoring for toxicity (Heparin, Nitro, Insulin, Cardizem)? @ -No Were any procedures done? @ -No Diagnosis/symptom? @ -Pyelonephritis, hyponatremia, bacteremia Acute, or Chronic, or Acute on Chronic? @ -Acute Uncomplicated (without systemic symptoms) or Complicated (systemic symptoms)? @ -[Complicated Side effects of treatment? @ -No Exacerbation, Progression, or Severe Exacerbation? @ -No Poses a threat to life or bodily function? How? (Chest pain, [place], [place], pneumonia, PE, COPD, DKA, ARF, appy, cholecystitis, CVA, Diverticulitis, Homicidal, Suicidal, threat to staff... and all critical care pts) @ -Yes patient is bacteremic - Lab Data Result diagrams: 07/06/23 11:39 07/06/23 11:39 Lab Results 07/06/23 07/06/23 07/06/23 Range/Units 11:39 11:39 11:39 WBC 13.9 H (3.8-10.6) k/uL RBC 3.32 L (3.80-5.40) m/uL Hgb 10.7 L (11.4-16.0) gm/dL Hct 30.6 L (34.0-46.0) % MCV 92.0 (80.0-100.0) fL MCH 32.1 (25.0-35.0) pg MCHC 34.9 (31.0-37.0) g/dL RDW 12.7 (11.5-15.5) % Plt Count 126 L (150-450) k/uL MPV 9.1 Neutrophils % 91 % Lymphocytes % 4 % Monocytes % 4 % Eosinophils % 0 % Basophils % 0 % Neutrophils # 12.6 H (1.3-7.7) k/uL Lymphocytes # 0.5 L (1.0-4.8) k/uL Monocytes # 0.6 (0-1.0) k/uL Eosinophils # 0.0 (0-0.7) k/uL Basophils # 0.0 (0-0.2) k/uL Sodium 123 L (137-145) mmol/L Potassium 4.4 (3.5-5.1) mmol/L Chloride 92 L (98-107) mmol/L Carbon Dioxide 19 L (22-30) mmol/L Anion Gap 12 mmol/L BUN 16 (7-17) mg/dL Creatinine 0.89 (0.52-1.04) mg/dL Est GFR (CKD-EPI)AfAm 73 (>60 ml/min/1.73 sqM) Est GFR (CKD-EPI)NonAf 64 (>60 ml/min/1.73 sqM) Glucose 131 H (74-99) mg/dL Calcium 8.0 L (8.4-10.2) mg/dL Total Bilirubin 1.0 (0.2-1.3) mg/dL AST 41 H (14-36) U/L ALT 30 (4-34) U/L Alkaline Phosphatase 69 (38-126) U/L Total Protein 5.9 L (6.3-8.2) g/dL Albumin 3.5 (3.5-5.0) g/dL Amylase 44 (30-110) U/L Lipase 42 (23-300) U/L Urine Color Yellow Urine Appearance Cloudy H (Clear) Urine pH 6.0 (5.0-8.0) Ur Specific [place] 1.011 (1.001-1.035) Urine Protein 1+ H (Negative) Urine Glucose (UA) Negative (Negative) Urine Ketones Trace H (Negative) Urine Blood Small H (Negative) Urine Nitrite Negative (Negative) Urine Bilirubin Negative (Negative) Urine Urobilinogen <2.0 (<2.0) mg/dL Ur Leukocyte Esterase Large H (Negative) Urine RBC 27 H (0-5) /hpf Urine WBC 61 H (0-5) /hpf Urine WBC Clumps Occasional H (None) /hpf Amorphous Sediment Rare H (None) /hpf Urine Mucus Rare H (None) /hpf Coronavirus (PCR) (Not Detectd) 07/06/23 Range/Units 12:09 WBC (3.8-10.6) k/uL RBC (3.80-5.40) m/uL Hgb (11.4-16.0) gm/dL Hct (34.0-46.0) % MCV (80.0-100.0) fL MCH (25.0-35.0) pg MCHC (31.0-37.0) g/dL RDW (11.5-15.5) % Plt Count (150-450) k/uL MPV Neutrophils % % Lymphocytes % % Monocytes % % Eosinophils % % Basophils % % Neutrophils # (1.3-7.7) k/uL Lymphocytes # (1.0-4.8) k/uL Monocytes # (0-1.0) k/uL Eosinophils # (0-0.7) k/uL Basophils # (0-0.2) k/uL Sodium (137-145) mmol/L Potassium (3.5-5.1) mmol/L Chloride (98-107) mmol/L Carbon Dioxide (22-30) mmol/L Anion Gap mmol/L BUN (7-17) mg/dL Creatinine (0.52-1.04) mg/dL Est GFR (CKD-EPI)AfAm (>60 ml/min/1.73 sqM) Est GFR (CKD-EPI)NonAf (>60 ml/min/1.73 sqM) Glucose (74-99) mg/dL Calcium (8.4-10.2) mg/dL Total Bilirubin (0.2-1.3) mg/dL AST (14-36) U/L ALT (4-34) U/L Alkaline Phosphatase (38-126) U/L Total Protein (6.3-8.2) g/dL Albumin (3.5-5.0) g/dL Amylase (30-110) U/L Lipase (23-300) U/L Urine Color Urine Appearance (Clear) Urine pH (5.0-8.0) Ur Specific [place] (1.001-1.035) Urine Protein (Negative) Urine Glucose (UA) (Negative) Urine Ketones (Negative) Urine Blood (Negative) Urine Nitrite (Negative) Urine Bilirubin (Negative) Urine Urobilinogen (<2.0) mg/dL Ur Leukocyte Esterase (Negative) Urine RBC (0-5) /hpf Urine WBC (0-5) /hpf Urine WBC Clumps (None) /hpf Amorphous Sediment (None) /hpf Urine Mucus (None) /hpf Coronavirus (PCR) Not Detected (Not Detectd) Disposition Clinical Impression: Dehydration, Pyelonephritis, Hyponatremia, Bacteremia Disposition: ADMITTED IP TO THIS HOSP Condition: Fair Referrals: Lizzy Mackey DO [Primary Care Provider] - 1-2 days Time of Disposition: 12:35
[2023-07-06 12:11] LABS: Basophils % (A) 0 %; Eosinophils % (A) 0 %; HCT 30.6 % (34.0-46.0); HGB 10.7 gm/dL (11.4-16.0); Lymphocytes # (A) 0.5 k/uL (1.0-4.8); Lymphocytes % (A) 4 %; MCH 32.1 pg (25.0-35.0); MCHC 34.9 g/dL (31.0-37.0); Mean Platelet Volume 9.1; Monocytes # (A) 0.6 k/uL (0-1.0); Monocytes % (A) 4 %; Neutrophils # (A) 12.6 k/uL (1.3-7.7); Neutrophils % (A) 91 %; Platelet Count 126 k/uL (150-450); RBC 3.32 m/uL (3.80-5.40); RDW 12.7 % (11.5-15.5); WBC 13.9 k/uL (3.8-10.6)
[2023-07-06 12:26] LABS: ALT 30 U/L (4-34); AST 41 U/L (14-36); African American GFR (CKD) 73 (>60 ml/min/1.73 sqM); Albumin 3.5 g/dL (3.5-5.0); Alkaline Phosphatase 69 U/L (38-126); Amylase 44 U/L (30-110); Anion Gap 12 mmol/L; Blood Urea Nitrogen 16 mg/dL (7-17); Carbon Dioxide 19 mmol/L (22-30); Chloride 92 mmol/L (98-107); Glucose 131 mg/dL (74-99); Lipase 42 U/L (23-300); Non-African American GFR(CKD) 64 (>60 ml/min/1.73 sqM); Potassium 4.4 mmol/L (3.5-5.1); Sodium 123 mmol/L (137-145); Total Protein 5.9 g/dL (6.3-8.2)
[2023-07-06] MEDS ORDERED: ONDANSETRON 4 MG/2 ML VIAL IVP PRN (13:07)
[2023-07-06] MEDS ORDERED: ACETAMINOPHEN TAB 325 MG TAB PO PRN (13:07)
[2023-07-06] MEDS ORDERED: NALOXONE 0.4 MG/ML 1 ML VIAL IV PRN (13:07)
[2023-07-06] MEDS ORDERED: SODIUM CHLORIDE 0.9% 1,000 ML IV SCH (13:15)
[2023-07-06 13:33] LABS: Amorphous Sediment,Urine Rare /hpf; Appearance,Urine Cloudy (Clear); Bilirubin,Urine Negative (Negative); Blood,Urine Small (Negative); Color,Urine Yellow; Glucose,Urine (UA) Negative (Negative); Ketones,Urine Trace (Negative); Leukocyte Esterase,Urine Large (Negative); Mucus,Urine Rare /hpf; Nitrite,Urine Negative (Negative); Protein,Urine 1+ (Negative); RBC,Urine 27 /hpf (0-5); Specific Gravity,Urine 1.011 (1.001-1.035); Urobilinogen,Urine <2.0 mg/dL (<2.0); WBC,Urine 61 /hpf (0-5)
[2023-07-06 19:33] LABS: Prothrombin Time 65.4 sec (9.0-12.0)
[2023-07-06 19:39] LABS: INR 6.6 (<1.2)
--- NOTE | 2023-07-06 19:53 | P.HPIM ---
History of Present Illness This is a pleasant 73 years old female with past medical history of Atrial Fibrillation, Coronary Artery Disease (CAD), Hyperlipidemia, Hypertension, Myocardial Infarction ([place]), Osteoarthritis ([place]) Additional Past Medical History / Comment(s): CHRONIC HEADACHES, CHRONIC CONSTIPATION Patient presents because of fever and increased frequency of urination and burning. Also she she was feeling dizzy this morning at 5:30 AM also with nausea but no vomiting no pain. Patient also with generalized weakness and lethargic. Poor appetite. No abdominal pain. With the vomiting as above. She has chronic headache could be migrated. No new weakness or numbness in extremities. No blurred vision. Patient denies smoking alcohol or illicit drugs Review of Systems Review of systems CONSTITUTIONAL: No fever, no malaise, no fatigue. HEENT: No recent visual problems or hearing problems. Denied any sore throat. CARDIOVASCULAR: No orthopnea, PND, no palpitations, no syncope. PULMONARY: No shortness of breath, no cough, no hemoptysis. GASTROINTESTINAL: No diarrhea, no nausea, no vomiting, no abdominal pain. Normoactive bowel sounds. NEUROLOGICAL: No headaches, no weakness, no numbness. HEMATOLOGICAL: Denies any bleeding or petechiae. -GENITOURINARY: As above, swelling, or any muscle pain. ENDOCRINE: Denies any polyuria or polydipsia. Past Medical History Past Medical History: Atrial Fibrillation, Coronary Artery Disease (CAD), Hyperlipidemia, Hypertension, Myocardial Infarction ([place]), Osteoarthritis (OA) Additional Past Medical History / Comment(s): CHRONIC HEADACHES, CHRONIC CONSTIPATION, CARPAL TUNNEL WITH RECENT STEROID INJECTION. , STATES OCCASIONAL TIGHTNESS IN HER CHEST WITH EXERCISE., SEE CARDIOLOGY H & P. Last Myocardial Infarction Date:: 2005 History of Any Multi-Drug Resistant Organisms: None Reported Past Surgical History: Heart Catheterization With Stent Past Anesthesia/Blood Transfusion Reactions: No Reported Reaction Date of Last Stent Placement:: 2005 Past Psychological History: No Psychological Hx Reported Smoking Status: Former smoker Past Alcohol Use History: None Reported Past Drug Use History: None Reported - Past Family History Father Family Medical History: Coronary Artery Disease (CAD) Additional Family Medical History / Comment(s): Heart disease Mother Family Medical History: Coronary Artery Disease (CAD), Diabetes Mellitus Additional Family Medical History / Comment(s): heart disease Brother(s) Family Medical History: Cancer, Coronary Artery Disease (CAD) Additional Family Medical History / Comment(s): PROSTATE CANCER Sister(s) Family Medical History: No Reported History Daughter(s) Family Medical History: No Reported History Son(s) Family Medical History: No Reported History Additional Family Medical History / Comment(s): Patient has 11 grandkids. Medications and Allergies Home Medications Medication Instructions Recorded Confirmed Type Ranolazine [Ranexa] 1,000 mg PO Q12HR 03/03/22 07/06/23 History Rosuvastatin Calcium [Crestor] 5 mg PO Q2D@2100 04/20/22 07/06/23 History Cephalexin [Keflex] 500 mg PO Q8HR #30 cap 07/05/23 07/06/23 Rx Aspirin 81 mg PO HS 07/06/23 07/06/23 History Metoprolol Succinate (ER) [Toprol 37.5 mg PO HS 07/06/23 07/06/23 History Xl] Pantoprazole Sodium 40 mg PO HS 07/06/23 07/06/23 History Warfarin [Coumadin] 2.5 mg PO HS 07/06/23 07/06/23 History Allergies Allergy/AdvReac Type Severity Reaction Status Date / Time latex Allergy Intermediate Rash/Hives Verified 07/06/23 12:40 Physical Exam Vitals: Vital Signs Temp Pulse Resp BP Pulse Ox 07/06/23 14:07 67 16 168/84 98 07/06/23 13:05 98.4 F 65 17 152/71 98 07/06/23 11:23 98.7 F 65 18 172/100 98 Intake and Output 07/05/23 07/06/23 07/06/23 22:59 06:59 14:59 Other: Weight 61.235 kg GENERAL: The patient is alert and oriented x3, not in any acute distress. Well developed, well nourished. HEENT: Pupils are round and equally reacting to light. EOMI. No scleral icterus. No conjunctival pallor. Normocephalic, atraumatic. No pharyngeal erythema. No thyromegaly. CARDIOVASCULAR: S1 and S2 present. No murmurs, rubs, or gallops. PULMONARY: Chest is clear to auscultation, no wheezing , no crackles. -ABDOMEN: Soft, nontender, nondistended, normoactive bowel sounds. No palpable organomegaly. Right costovertebral angle discomfort MUSCULOSKELETAL: No joint swelling or deformity. EXTREMITIES: No cyanosis, clubbing, or pedal edema. NEUROLOGICAL: Gross neurological examination did not reveal any focal deficits. SKIN: No rashes. no petechiae. Results CBC & Chem 7: 07/06/23 11:39 07/06/23 11:39 Labs: Abnormal Lab Results - Last 24 Hours (Table) 07/06/23 07/06/23 07/06/23 Range/Units 11:39 11:39 11:39 WBC 13.9 H (3.8-10.6) k/uL RBC 3.32 L (3.80-5.40) m/uL Hgb 10.7 L (11.4-16.0) gm/dL Hct 30.6 L (34.0-46.0) % Plt Count 126 L (150-450) k/uL Neutrophils # 12.6 H (1.3-7.7) k/uL Lymphocytes # 0.5 L (1.0-4.8) k/uL Sodium 123 L (137-145) mmol/L Chloride 92 L (98-107) mmol/L Carbon Dioxide 19 L (22-30) mmol/L Glucose 131 H (74-99) mg/dL Calcium 8.0 L (8.4-10.2) mg/dL AST 41 H (14-36) U/L Total Protein 5.9 L (6.3-8.2) g/dL Urine Appearance Cloudy H (Clear) Urine Protein 1+ H (Negative) Urine Ketones Trace H (Negative) Urine Blood Small H (Negative) Ur Leukocyte Esterase Large H (Negative) Urine RBC 27 H (0-5) /hpf Urine WBC 61 H (0-5) /hpf Urine WBC Clumps Occasional H (None) /hpf Amorphous Sediment Rare H (None) /hpf Urine Mucus Rare H (None) /hpf Assessment and Plan Assessment: Acute UTI with right pyelonephritis, failed outpatient treatment Dizziness with nauseous, most likely secondary to above Chronic atrial fibrillation on warfarin History of coronary artery disease Diabetes mellitus Hypertension Hyperlipidemia History of osteoarthritis Hypothyroidism Plan: Continue with ceftriaxone Infectious disease consult Monitor sodium Nephrology consult Continue with normal saline Follow-up blood culture and urine culture Continue Coumadin and monitor INR Labs and medication were reviewed.. Continue same treatment. Continue with symptomatic treatment. Resume home medication. Monitor lytes and vitals. DVT and GI prophylaxis. Further recommendations depends on the clinical course of the patient DVT prophylaxis: on warfarin GI Prophylaxis: Pepcid Prognosis is guarded
[2023-07-06] MEDS: ASPIRIN 81 MG PO SCH (20:13)
[2023-07-06] MEDS: PANTOPRAZOLE 40 MG TABLET PO SCH (20:13)
[2023-07-06] MEDS: RANOLAZINE 500 MG TAB.ER.12H PO SCH (20:13)
[2023-07-06] MEDS: METOPROLOL SUCCINATE (ER) 25 MG TAB.ER.24H PO SCH (20:13)
[2023-07-06] MEDS ORDERED: WARFARIN 0.5 MG TAB PO ONE (20:45)
[2023-07-06] MEDS ORDERED: PHYTONADIONE ORAL 5 MG/5 ML ORAL.SYRG PO ONE (21:00)
[2023-07-06] MEDS ORDERED: DEXTROSE 5%-0.45% NACL 1,000 ML IV SCH (22:45)
[2023-07-07 06:08] LABS: Basophils % (A) 0 %; Eosinophils % (A) 1 %; HCT 25.9 % (34.0-46.0); Lymphocytes # (A) 0.7 k/uL (1.0-4.8); Lymphocytes % (A) 8 %; MCH 31.8 pg (25.0-35.0); MCHC 34.6 g/dL (31.0-37.0); Mean Platelet Volume 8.8; Monocytes # (A) 0.6 k/uL (0-1.0); Monocytes % (A) 7 %; Neutrophils # (A) 7.6 k/uL (1.3-7.7); Neutrophils % (A) 83 %; Platelet Count 136 k/uL (150-450); RBC 2.81 m/uL (3.80-5.40); RDW 12.6 % (11.5-15.5); WBC 9.1 k/uL (3.8-10.6)
[2023-07-07 06:15] LABS: HGB 8.9 gm/dL (11.4-16.0); INR 3.2 (<1.2); Prothrombin Time 31.2 sec (9.0-12.0)
[2023-07-07 06:29] LABS: African American GFR (CKD) 83 (>60 ml/min/1.73 sqM); Anion Gap 9 mmol/L; Blood Urea Nitrogen 10 mg/dL (7-17); Calcium 7.7 mg/dL (8.4-10.2); Carbon Dioxide 18 mmol/L (22-30); Chloride 104 mmol/L (98-107); Glucose 98 mg/dL (74-99); Non-African American GFR(CKD) 72 (>60 ml/min/1.73 sqM); Potassium 3.8 mmol/L (3.5-5.1); Sodium 131 mmol/L (137-145)
[2023-07-07] MEDS: RANOLAZINE 500 MG TAB.ER.12H PO SCH ×2 (08:42→20:01)
[2023-07-07] MEDS: SENNOSIDES 8.6 MG TAB PO SCH ×2 (11:30→20:00)
[2023-07-07 12:29] LABS: % Iron Saturation 8.51 (12.00-45.00)
[2023-07-07] MEDS ORDERED: WARFARIN 1 MG TAB PO ONE (18:00)
[2023-07-07] MEDS ORDERED: WARFARIN 0.5 MG TAB PO ONE (18:00)
[2023-07-07] MEDS: FERROUS SULFATE 325 MG TAB PO SCH (18:39)
--- NOTE | 2023-07-07 19:16 | P.PN ---
Subjective This is a pleasant 73 years old female with past medical history of Atrial Fibrillation, Coronary Artery Disease (CAD), Hyperlipidemia, Hypertension, Myocardial Infarction ([place]), Osteoarthritis (OA) Additional Past Medical History / Comment(s): CHRONIC HEADACHES, CHRONIC CONSTIPATION Patient presents because of fever and increased frequency of urination and burning. Also she she was feeling dizzy this morning at 5:30 AM also with nausea but no vomiting no pain. Patient also with generalized weakness and lethargic. Poor appetite. No abdominal pain. With the vomiting as above. She has chronic headache could be migrated. No new weakness or numbness in extremities. No blurred vision. Patient denies smoking alcohol or illicit drugs 07/07/2023 Patient is feeling better today with less severe symptomspain. No significant urinary symptoms or suprapubic discomfort. She tolerates diet well. No vomiting. Her leukocytosis improved. Urine culture and blood culture are still pending and patient remains on ceftriaxone. ID team consulted However hemoglobin dropped 10.7 down to 8.9, INR is improved down to 3.2, she takes 2.5 mg of Coumadin at home, therefore we going to give her 1 mg tonight and check INR tomorrow. We'll check occult blood in stool, start iron pill and consult GI service for her iron deficiency anemia, give extra dose of Protonix tonight. Because of the anemia was started the patient on normal saline at 50 mL/h. Monitor vitals and hemoglobin On admission patient had hyponatremia 123, she received normal saline and emergency room and started on normal saline 75 mL/h within 6 hours her sodium improved to up 1:30, to slow down her sodium rate of correction we stopped her normal saline and give her 4 hours of half normal saline, repeat sodium 131 this morning. Patient also is asymptomatic. Active Medications Generic Name Dose Route Start Last Admin Trade Name Freq PRN Reason Stop Dose Admin Acetaminophen 650 mg 07/06/23 13:07 Acetaminophen Tab 325 Mg Tab PO Q6HR PRN Mild Pain or Fever > 100.5 Aspirin 81 mg 07/06/23 21:00 07/06/23 20:13 Aspirin 81 Mg PO 81 mg HS TIFFANIE Administration Ferrous Sulfate 325 mg 07/07/23 18:15 07/07/23 18:39 Ferrous Sulfate 325 Mg Tab PO 325 mg BID-W/MEALS TIFFANIE Administration Ceftriaxone Sodium 2 gm/ 50 mls @ 100 mls/hr 07/07/23 09:00 07/07/23 08:41 Sodium Chloride IVPB 100 mls/hr Q24HR TIFFANIE Administration Protocol Sodium Chloride 1,000 mls @ 50 mls/hr 07/07/23 19:15 Saline 0.9% IV .Q20H TIFFANIE Metoprolol Succinate 37.5 mg 07/06/23 21:00 07/06/23 20:13 Metoprolol Succinate (Er) 25 Mg Tab.Er.24h PO 37.5 mg HS TIFFANIE Administration Miscellaneous Information 1 each 07/06/23 18:31 Warfarin Per Pharmacy MISCELLANE DIRECTED PRN Per Protocol Protocol Naloxone HCl 0.2 mg 07/06/23 13:07 Naloxone 0.4 Mg/Ml 1 Ml Vial IV Q2M PRN Opioid Reversal Ondansetron HCl 4 mg 07/06/23 13:07 Ondansetron 4 Mg/2 Ml Vial IVP Q8HR PRN Nausea And Vomiting Pantoprazole Sodium 40 mg 07/06/23 21:00 07/06/23 20:13 Pantoprazole 40 Mg Tablet PO 40 mg HS TIFFANIE Administration Pantoprazole Sodium 40 mg 07/07/23 21:00 Pantoprazole 40 Mg Tablet PO 07/07/23 21:01 ONCE ONE Ranolazine 1,000 mg 07/06/23 21:00 07/07/23 08:42 Ranolazine 500 Mg Tab.Er.12h PO 1,000 mg Q12HR TIFFANIE Administration Senna 8.6 mg 07/07/23 09:30 07/07/23 11:30 Sennosides 8.6 Mg Tab PO 8.6 mg BID TIFFANIE Administration Temazepam 7.5 mg 07/07/23 09:26 Temazepam 7.5 Mg Cap PO HS PRN Insomnia Objective - Vital Signs Vital signs: Vital Signs Temp 97.8 F 07/07/23 12:40 Pulse 76 07/07/23 12:40 Resp 18 07/07/23 12:40 BP 131/71 07/07/23 12:40 Pulse Ox 99 07/07/23 12:40 FiO2 Intake & Output 07/06/23 07/07/23 07/07/23 18:59 06:59 18:59 Intake Total 150 Balance 150 Weight 67.5 kg Intake: Intake, IV Titration 150 Amount Sodium Chloride 0.9% 1, 150 000 ml @ 75 mls/hr IV . [id number] [facility] Rx#:[id number] Other: Voiding Method Toilet Toilet # Voids 1 - Exam GENERAL: The patient is alert and oriented x3, not in any acute distress. Well developed, well nourished. HEENT: Pupils are round and equally reacting to light. EOMI. No scleral icterus. No conjunctival pallor. Normocephalic, atraumatic. No pharyngeal erythema. No thyromegaly. CARDIOVASCULAR: S1 and S2 present. No murmurs, rubs, or gallops. PULMONARY: Chest is clear to auscultation, no wheezing , no crackles. -ABDOMEN: Soft, nontender, nondistended, normoactive bowel sounds. No palpable organomegaly. Mild costovertebral angle tenderness MUSCULOSKELETAL: No joint swelling or deformity. EXTREMITIES: No cyanosis, clubbing, or pedal edema. NEUROLOGICAL: Gross neurological examination did not reveal any focal deficits. SKIN: No rashes. no petechiae. - Labs CBC & Chem 7: 07/07/23 05:24 07/07/23 05:24 Labs: Abnormal Lab Results - Last 24 Hours (Table) 07/06/23 07/06/23 07/06/23 Range/Units 18:42 19:45 19:45 RBC (3.80-5.40) m/uL Hgb (11.4-16.0) gm/dL Hct (34.0-46.0) % Plt Count (150-450) k/uL Lymphocytes # (1.0-4.8) k/uL PT 65.4 H (9.0-12.0) sec INR 6.6 H* (<1.2) Sodium 130 L (137-145) mmol/L Carbon Dioxide (22-30) mmol/L Calcium (8.4-10.2) mg/dL Iron (50-170) UG/DL % Saturation (12.00-45.00) Transferrin (204.0-354.0) mg/dL Vitamin B12 (200.0-944.0) pg/mL Procalcitonin 6.71 H (0.02-0.09) ng/mL 07/07/23 07/07/23 07/07/23 Range/Units 05:24 05:24 05:24 RBC 2.81 L (3.80-5.40) m/uL Hgb 8.9 L D (11.4-16.0) gm/dL Hct 25.9 L (34.0-46.0) % Plt Count 136 L (150-450) k/uL Lymphocytes # 0.7 L (1.0-4.8) k/uL PT 31.2 H (9.0-12.0) sec INR 3.2 H (<1.2) Sodium 131 L (137-145) mmol/L Carbon Dioxide 18 L (22-30) mmol/L Calcium 7.7 L (8.4-10.2) mg/dL Iron (50-170) UG/DL % Saturation (12.00-45.00) Transferrin (204.0-354.0) mg/dL Vitamin B12 (200.0-944.0) pg/mL Procalcitonin (0.02-0.09) ng/mL 07/07/23 Range/Units 05:24 RBC (3.80-5.40) m/uL Hgb (11.4-16.0) gm/dL Hct (34.0-46.0) % Plt Count (150-450) k/uL Lymphocytes # (1.0-4.8) k/uL PT (9.0-12.0) sec INR (<1.2) Sodium (137-145) mmol/L Carbon Dioxide (22-30) mmol/L Calcium (8.4-10.2) mg/dL Iron 20 L (50-170) UG/DL % Saturation 8.51 L (12.00-45.00) Transferrin 168.0 L (204.0-354.0) mg/dL Vitamin B12 1297.0 H (200.0-944.0) pg/mL Procalcitonin (0.02-0.09) ng/mL Assessment and Plan Assessment: Acute UTI with right pyelonephritis, failed outpatient treatment Dizziness with nauseous, most likely secondary to above coagulopathy secondary to Coumadin, improving Anemia with iron deficiency anemia suspected Chronic atrial fibrillation on warfarin History of coronary artery disease Diabetes mellitus Hypertension Hyperlipidemia History of osteoarthritis Hypothyroidism Plan: Continue with ceftriaxone follow-up urine culture and blood culture. Infectious disease consult Monitor sodium Start normal saline at 50 mL per hour Follow-up blood culture and urine culture Continue Coumadin and monitor INR Labs and medication were reviewed.. Continue same treatment. Continue with symptomatic treatment. Resume home medication. Monitor lytes and vitals. DVT and GI prophylaxis. Further recommendations depends on the clinical course of the patient DVT prophylaxis: on warfarin GI Prophylaxis: Ppi Prognosis is guarded
[2023-07-07] MEDS: PANTOPRAZOLE 40 MG TABLET PO SCH (19:59)
[2023-07-07] MEDS: ASPIRIN 81 MG PO SCH (20:00)
[2023-07-07] MEDS: METOPROLOL SUCCINATE (ER) 25 MG TAB.ER.24H PO SCH (20:00)
[2023-07-07] MEDS: SODIUM CHLORIDE 0.9% 1,000 ML IV SCH (20:04)
[2023-07-07] MEDS ORDERED: PANTOPRAZOLE 40 MG TABLET PO ONE (21:00)
--- NOTE | 2023-07-07 22:44 | P.CONS ---
History of Present Illness - Reason for Consult Consult date: 07/07/23 - History of Present Illness Patient is a 73-year-old female with a past medical history significant for coronary disease hypertension hyperlipidemia [place] atrial fibrillation started having symptoms of urinary burning some suprapubic discomfort with a fever and chills for which the patient was evaluated at [facility] ER on 07/05/2023 patient received a dose of IV Rocephin and subsequently discharged home on oral Keflex patient was advised to come back to the hospital if the patient did have any worsening symptoms patient mentioned that he initially felt better however later that night patient started having increasing fever rigors and chills did have some mental status changes denies any headache or URI symptoms no chest pain shortness of breath or cough no abdominal pain or diarrhea the patient was brought into the ER on arrival to the ER second time the patient was afebrile and no fever has been recorded subsequently patient did have white count 13.9 with a left shift creatinine has been normal liver exams are normal procalcitonin was 6.71 urine is positive chronic patient was negative for blood culture and urine culture done on 07/05/2023 currently growing gram-negative bacilli patient is being treated with Rocephin 2 g daily infectious disease was consulted today for further management of antibiotic therapy Past Medical History Past Medical History: Atrial Fibrillation, Coronary Artery Disease (CAD), Hyperlipidemia, Hypertension, Myocardial Infarction ([place]), Osteoarthritis ([place]) Additional Past Medical History / Comment(s): CHRONIC HEADACHES, CHRONIC CONSTIPATION, CARPAL TUNNEL WITH RECENT STEROID INJECTION. , STATES OCCASIONAL TIGHTNESS IN HER CHEST WITH EXERCISE., SEE CARDIOLOGY H & P. Last Myocardial Infarction Date:: 2005 History of Any Multi-Drug Resistant Organisms: None Reported Past Surgical History: Heart Catheterization With Stent Additional Past Surgical History / Comment(s): cataracts Past Anesthesia/Blood Transfusion Reactions: No Reported Reaction Date of Last Stent Placement:: 2005 Past Psychological History: No Psychological Hx Reported Smoking Status: Former smoker Past Alcohol Use History: None Reported Past Drug Use History: None Reported - Past Family History Father Family Medical History: Coronary Artery Disease (CAD) Additional Family Medical History / Comment(s): Heart disease Mother Family Medical History: Coronary Artery Disease (CAD), Diabetes Mellitus Additional Family Medical History / Comment(s): heart disease Brother(s) Family Medical History: Cancer, Coronary Artery Disease (CAD) Additional Family Medical History / Comment(s): PROSTATE CANCER Sister(s) Family Medical History: No Reported History Daughter(s) Family Medical History: No Reported History Son(s) Family Medical History: No Reported History Additional Family Medical History / Comment(s): Patient has 11 grandkids. Medications and Allergies Home Medications Medication Instructions Recorded Confirmed Type Ranolazine [Ranexa] 1,000 mg PO Q12HR 03/03/22 07/06/23 History Rosuvastatin Calcium [Crestor] 5 mg PO Q2D@2100 04/20/22 07/06/23 History Cephalexin [Keflex] 500 mg PO Q8HR #30 cap 07/05/23 07/06/23 Rx Aspirin 81 mg PO HS 07/06/23 07/06/23 History Metoprolol Succinate (ER) [Toprol 37.5 mg PO HS 07/06/23 07/06/23 History Xl] Pantoprazole Sodium 40 mg PO HS 07/06/23 07/06/23 History Warfarin [Coumadin] 2.5 mg PO HS 07/06/23 07/06/23 History Allergies Allergy/AdvReac Type Severity Reaction Status Date / Time latex Allergy Intermediate Rash/Hives Verified 07/06/23 12:40 Physical Exam Vitals: Vital Signs Temp Pulse Pulse Resp BP BP Pulse Ox 07/07/23 07:49 98.8 F 77 14 138/82 97 07/07/23 01:37 98.4 F 79 16 115/67 97 07/06/23 19:41 97.6 F 84 17 137/75 97 07/06/23 16:04 97.9 F 69 18 167/75 98 07/06/23 15:11 98.2 F 71 16 159/79 97 07/06/23 14:07 67 16 168/84 98 07/06/23 13:05 98.4 F 65 17 152/71 98 Intake and Output 07/06/23 07/07/23 07/07/23 22:59 06:59 14:59 Intake Total 150 Balance 150 Intake: Intake, IV Titration 150 Amount Sodium Chloride 0.9% 1, 150 000 ml @ 75 mls/hr IV . [id number] [facility] Rx#:[id number] Other: Voiding Method Toilet Toilet # Voids 1 Weight 67.5 kg Results CBC & Chem 7: 07/07/23 05:24 07/07/23 05:24 Labs: Abnormal Lab Results - Last 24 Hours (Table) 07/06/23 07/06/23 07/06/23 Range/Units 11:39 11:39 11:39 WBC 13.9 H (3.8-10.6) k/uL RBC 3.32 L (3.80-5.40) m/uL Hgb 10.7 L (11.4-16.0) gm/dL Hct 30.6 L (34.0-46.0) % Plt Count 126 L (150-450) k/uL Neutrophils # 12.6 H (1.3-7.7) k/uL Lymphocytes # 0.5 L (1.0-4.8) k/uL PT (9.0-12.0) sec INR (<1.2) Sodium 123 L (137-145) mmol/L Chloride 92 L (98-107) mmol/L Carbon Dioxide 19 L (22-30) mmol/L Glucose 131 H (74-99) mg/dL Calcium 8.0 L (8.4-10.2) mg/dL AST 41 H (14-36) U/L Total Protein 5.9 L (6.3-8.2) g/dL Procalcitonin (0.02-0.09) ng/mL Urine Appearance Cloudy H (Clear) Urine Protein 1+ H (Negative) Urine Ketones Trace H (Negative) Urine Blood Small H (Negative) Ur Leukocyte Esterase Large H (Negative) Urine RBC 27 H (0-5) /hpf Urine WBC 61 H (0-5) /hpf Urine WBC Clumps Occasional H (None) /hpf Amorphous Sediment Rare H (None) /hpf Urine Mucus Rare H (None) /hpf 07/06/23 07/06/23 07/06/23 Range/Units 18:42 19:45 19:45 WBC (3.8-10.6) k/uL RBC (3.80-5.40) m/uL Hgb (11.4-16.0) gm/dL Hct (34.0-46.0) % Plt Count (150-450) k/uL Neutrophils # (1.3-7.7) k/uL Lymphocytes # (1.0-4.8) k/uL PT 65.4 H (9.0-12.0) sec INR 6.6 H* (<1.2) Sodium 130 L (137-145) mmol/L Chloride (98-107) mmol/L Carbon Dioxide (22-30) mmol/L Glucose (74-99) mg/dL Calcium (8.4-10.2) mg/dL AST (14-36) U/L Total Protein (6.3-8.2) g/dL Procalcitonin 6.71 H (0.02-0.09) ng/mL Urine Appearance (Clear) Urine Protein (Negative) Urine Ketones (Negative) Urine Blood (Negative) Ur Leukocyte Esterase (Negative) Urine RBC (0-5) /hpf Urine WBC (0-5) /hpf Urine WBC Clumps (None) /hpf Amorphous Sediment (None) /hpf Urine Mucus (None) /hpf 07/07/23 07/07/23 07/07/23 Range/Units 05:24 05:24 05:24 WBC (3.8-10.6) k/uL RBC 2.81 L (3.80-5.40) m/uL Hgb 8.9 L D (11.4-16.0) gm/dL Hct 25.9 L (34.0-46.0) % Plt Count 136 L (150-450) k/uL Neutrophils # (1.3-7.7) k/uL Lymphocytes # 0.7 L (1.0-4.8) k/uL PT 31.2 H (9.0-12.0) sec INR 3.2 H (<1.2) Sodium 131 L (137-145) mmol/L Chloride (98-107) mmol/L Carbon Dioxide 18 L (22-30) mmol/L Glucose (74-99) mg/dL Calcium 7.7 L (8.4-10.2) mg/dL AST (14-36) U/L Total Protein (6.3-8.2) g/dL Procalcitonin (0.02-0.09) ng/mL Urine Appearance (Clear) Urine Protein (Negative) Urine Ketones (Negative) Urine Blood (Negative) Ur Leukocyte Esterase (Negative) Urine RBC (0-5) /hpf Urine WBC (0-5) /hpf Urine WBC Clumps (None) /hpf Amorphous Sediment (None) /hpf Urine Mucus (None) /hpf Assessment and Plan Plan: 1patient presented to hospital with fever rigors and chills and this patient recently evaluated in the ER on the subsequent discharged home on oral Keflex failing outpatient Keflex therapy now with evidence of gram-negative bacteremia source likely UTI from enteric gram-negative pathogen. 2we will obtain ultrasound of the kidneys to make no evidence of any obstructive uropathy or stones. 3Rocephin 2 g daily to continue while waiting for the culture to finalize. We will follow on clinical condition and cultures to further adjust medication if needed Thank you for this consultation we will follow the patient along with you Dictation was produced using [employer] dictation software. please excuse any grammatical, word or spelling errors. Time with Patient: Greater than 30
[2023-07-07] MEDS: TEMAZEPAM 7.5 MG CAP PO PRN (22:55)
[2023-07-08 06:04] LABS: INR 1.3 (<1.2); Prothrombin Time 13.6 sec (9.0-12.0)
[2023-07-08] MEDS: RANOLAZINE 500 MG TAB.ER.12H PO SCH ×2 (09:01→21:18)
[2023-07-08] MEDS: FERROUS SULFATE 325 MG TAB PO SCH ×2 (09:02→17:05)
[2023-07-08] MEDS: SENNOSIDES 8.6 MG TAB PO SCH ×2 (09:02→20:50)
[2023-07-08 09:26] LABS: Blood Urea Nitrogen 10.3 mg/dL (9.0-27.0); Calcium 8.2 mg/dL (8.7-10.3); Carbon Dioxide 22.1 mmol/L (21.6-31.8); Chloride 105 mmol/L (96-109); Glucose 104 mg/dL (70-110); Potassium 4.3 mmol/L (3.5-5.5); Sodium 135 mmol/L (135-145)
[2023-07-08 10:07] LABS: Basophils # (A) 0.02 X 10*3/uL (0.00-0.10); Basophils % (A) 0.3 %; Eosinophils # (A) 0.18 X 10*3/uL (0.04-0.35); Eosinophils % (A) 2.5 %; HCT 26.2 % (37.2-46.3); HGB 8.8 d/dL (12.0-15.0); Lymphocytes # (A) 0.76 X 10*3/uL (0.90-5.00); Lymphocytes % (A) 10.5 %; MCH 30.8 pg (27.0-32.0); MCHC 33.6 d/dL (32.0-37.0); MCV 91.6 FL (80.0-97.0); Mean Platelet Volume 11.5 FL (9.5-12.2); Monocytes # (A) 0.93 X 10*3/uL (0.20-1.00); Monocytes % (A) 12.8 %; NRBC Per 100 WBC 0 X 10*3/uL (0.00-0.01); Neutrophils # (A) 5.32 X 10*3/uL (1.80-7.70); Neutrophils % (A) 73.2 %; Platelet Count 168 X 10*3/uL (140-440); RBC 2.86 X 10*6/uL (4.10-5.20); WBC 7.26 X 10*3/uL (4.50-10.00)
--- NOTE | 2023-07-08 11:12 | P.CONS ---
History of Present Illness - Reason for Consult Consult date: 07/08/23 Anemia Requesting physician: Alfredo Ireland - Chief Complaint UTI, pyelonephritis - History of Present Illness This is a pleasant 73-year-old female who was recently diagnosed with a urinary tract infection with continued lower abdominal discomfort and urinary burning who presented to the emergency department with concerns for pyelonephritis. She has a past medical history including atrial fibrillation on Coumadin, coronary artery disease, hyperlipidemia, hypertension, chronic constipation, and chronic anemia. On presentation patient had INR of 6.6, hemoglobin 10.7 with a drop to 8.8 today. Gastroenterology was consulted for anemia. Patient states she's had a workup with EGD and colonoscopy a year ago done in [place] for anemia as well. She has no prior history of GI bleed. Denies any blood in her stool or black stool. No abdominal pain, nausea or vomiting. Iron studies consistent with a mild iron deficiency anemia. She was started on oral iron. Currently being treated for pyelonephritis. Labs WBC 7.2 hemoglobin 8.8 hematocrit 26 platelet count 168,000 INR 1.3 sodium 135 potassium 4.3 BUN 10.3 creatinine 1.0 iron 20 TIBC 235 saturation 8.5 para 12/24/1975 total bilirubin 1.0 AST 41 AST 30 alkaline phosphatase 69 amylase 44 lipase 42 vitamin B12 1297 folate 15.2 Review of Systems REVIEW OF SYSTEMS: CARDIOPULMONARY: No chest pain or shortness of breath. Gastrointestinal: No abdominal or epigastric pain. No nausea or vomiting. No hematemesis, coffee-ground emesis. No rectal bleeding, or melena. GENITOURINARY: Patient reports burning with urination, lower pelvic discomfort and flank pain. MUSCULOSKELETAL: Reports normal range of motion., Joint pain. SKIN: No rashes. No jaundice. ENDOCRINE: No chills, fevers. No excessive weight gain or loss. No polydipsia or polyuria. PSYCHIATRIC: Unremarkable. NEUROLOGY: No change in mental status. Denies dizziness, headache. ENT: Vision unremarkable. CONSTITUTIONAL: No recent weight loss. No fever, chills, night sweats. Past Medical History Past Medical History: Atrial Fibrillation, Coronary Artery Disease (CAD), Hyperlipidemia, Hypertension, Myocardial Infarction ([place]), Osteoarthritis (OA) Additional Past Medical History / Comment(s): CHRONIC HEADACHES, CHRONIC CONSTIPATION, CARPAL TUNNEL WITH RECENT STEROID INJECTION. , STATES OCCASIONAL TIGHTNESS IN HER CHEST WITH EXERCISE., SEE CARDIOLOGY H & P. Last Myocardial Infarction Date:: 2005 History of Any Multi-Drug Resistant Organisms: None Reported Past Surgical History: Heart Catheterization With Stent Additional Past Surgical History / Comment(s): cataracts Past Anesthesia/Blood Transfusion Reactions: No Reported Reaction Date of Last Stent Placement:: 2005 Past Psychological History: No Psychological Hx Reported Smoking Status: Former smoker Past Alcohol Use History: None Reported Past Drug Use History: None Reported - Past Family History Father Family Medical History: Coronary Artery Disease (CAD) Additional Family Medical History / Comment(s): Heart disease Mother Family Medical History: Coronary Artery Disease (CAD), Diabetes Mellitus Additional Family Medical History / Comment(s): heart disease Brother(s) Family Medical History: Cancer, Coronary Artery Disease (CAD) Additional Family Medical History / Comment(s): PROSTATE CANCER Sister(s) Family Medical History: No Reported History Daughter(s) Family Medical History: No Reported History Son(s) Family Medical History: No Reported History Additional Family Medical History / Comment(s): Patient has 11 grandkids. Medications and Allergies Home Medications Medication Instructions Recorded Confirmed Type Ranolazine [Ranexa] 1,000 mg PO Q12HR 03/03/22 07/06/23 History Rosuvastatin Calcium [Crestor] 5 mg PO Q2D@2100 04/20/22 07/06/23 History Cephalexin [Keflex] 500 mg PO Q8HR #30 cap 07/05/23 07/06/23 Rx Aspirin 81 mg PO HS 07/06/23 07/06/23 History Metoprolol Succinate (ER) [Toprol 37.5 mg PO HS 07/06/23 07/06/23 History Xl] Pantoprazole Sodium 40 mg PO HS 07/06/23 07/06/23 History Warfarin [Coumadin] 2.5 mg PO HS 07/06/23 07/06/23 History Allergies Allergy/AdvReac Type Severity Reaction Status Date / Time latex Allergy Intermediate Rash/Hives Verified 07/06/23 12:40 Physical Exam Vitals: Vital Signs Temp Pulse Resp BP Pulse Ox 07/08/23 07:09 99.1 F 76 16 157/88 90 L 07/08/23 01:10 99.4 F 78 16 126/64 94 L 07/07/23 19:09 99.0 F 89 16 146/76 97 07/07/23 12:40 97.8 F 76 18 131/71 99 Intake and Output 07/07/23 07/08/23 07/08/23 22:59 06:59 14:59 Other: Voiding Method Toilet Toilet # Voids 2 General appearance: The patient is alert, oriented, appears in no acute distress. HET: Head is normocephalic and atraumatic. Conjunctiva pink. Sclera anicteric. Neck: Supple without lymphadenopathy. Trachea midline. Heart: S1 S2. Regular rate and rhythm. Lungs: Clear to auscultation. Abdomen: Soft, nontender, nondistended with bowel sounds. No guarding or rigidity. Skin: No rashes. No jaundice. Extremities: Normal skin color and turgor. No pedal edema. Neurological: No focal deficits. Alert and oriented x3. Results CBC & Chem 7: 07/08/23 05:36 07/08/23 05:36 Labs: Abnormal Lab Results - Last 24 Hours (Table) 07/07/23 07/08/23 07/08/23 Range/Units 05:24 05:36 05:36 RBC 2.86 L (4.10-5.20) X 10*6/uL Hgb 8.8 L (12.0-15.0) d/dL Hct 26.2 L (37.2-46.3) % Lymphocytes # 0.76 L (0.90-5.00) X 10*3/uL PT 13.6 H (9.0-12.0) sec INR 1.3 H (<1.2) Est GFR (CKD-EPI) (>=60) BUN/Creatinine Ratio (12.00-20.00) Ratio Calcium (8.7-10.3) mg/dL Iron 20 L (50-170) UG/DL % Saturation 8.51 L (12.00-45.00) Transferrin 168.0 L (204.0-354.0) mg/dL Vitamin B12 1297.0 H (200.0-944.0) pg/mL 07/08/23 Range/Units 05:36 RBC (4.10-5.20) X 10*6/uL Hgb (12.0-15.0) d/dL Hct (37.2-46.3) % Lymphocytes # (0.90-5.00) X 10*3/uL PT (9.0-12.0) sec INR (<1.2) Est GFR (CKD-EPI) 59 L (>=60) BUN/Creatinine Ratio 10.30 L (12.00-20.00) Ratio Calcium 8.2 L (8.7-10.3) mg/dL Iron (50-170) UG/DL % Saturation (12.00-45.00) Transferrin (204.0-354.0) mg/dL Vitamin B12 (200.0-944.0) pg/mL Microbiology - Last 24 Hours (Table) 07/06/23 11:39 Blood Culture - Preliminary Blood 07/06/23 11:30 Blood Culture - Preliminary Blood 07/06/23 11:39 Urine Culture - Final Urine,Voided Assessment and Plan (1) Anemia Narrative/Plan: 73-year-old female with a history of anemia presented to the hospital with pyelonephritis. Patient has a history coronary artery disease, atrial fibrillation on warfarin. INR was 6.6 on admission currently now 1.3 however patient did have admitting hemoglobin and the tendons with a drop to 8.8. No signs or symptoms of GI bleed. She denies any abdominal pain, no blood in her stool or black stool. No hematemesis or epigastric pain. No history of GI bleed however does state she does have a history of anemia and has been worked up a year ago with an EGD and colonoscopy at that time done in [place]. Report not available however patient states there was no signs of bleeding noted. The patient states she currently feels fine, no abdominal pain or epigastric pain. No plans at this time for endoscopic evaluation. Anemia possible chronic disease with a component of iron deficiency anemia. Patient Higuera started on iron supplementation which I agree with. Current Visit: Yes Status: Acute Code(s): D64.9 - ANEMIA, UNSPECIFIED SNOMED Code(s): 271754943 (2) Pyelonephritis Current Visit: Yes Status: Acute Code(s): N12 - TUBULO-INTERSTITIAL NEPHRITIS, NOT SPCF ACUTE OR CHRONIC SNOMED Code(s): 10851926 (3) Coronary artery disease Current Visit: Yes Status: Acute Code(s): I25.10 - ATHSCL HEART DISEASE OF [place] CORONARY ARTERY W/O ANG PCTRS SNOMED Code(s): 04495733 (4) Atrial fibrillation Current Visit: Yes Status: Acute Code(s): I48.91 - UNSPECIFIED ATRIAL FIBRILLATION SNOMED Code(s): 17732773 Plan: 1. Continue symptomatic and supportive care 2. Daily CBC, transfuse for hemoglobin less than 7 3. Continue with iron twice a day 4. Patient had recent EGD and colonoscopy 1 year ago as part of anemia workup, report not available at this time however patient states there is no bleeding noted 5. May continue anticoagulation 6. No plans on endoscopic evaluation at this time Thank you for this consultation, we can continue to follow. Dr. Eric Mckeon I agree with the dictator's note, documented as a scribe by Tammy Davison.
[2023-07-08] MEDS ORDERED: LACTULOSE 20 GM/30 ML CUP PO PRN (16:23)
[2023-07-08] MEDS ORDERED: polyethylene glycoL 3350 17 GM POWD.PACK PO STA (16:24)
[2023-07-08] MEDS: SODIUM CHLORIDE 0.9% 1,000 ML IV SCH (17:06)
[2023-07-08] MEDS ORDERED: WARFARIN 2.5 MG TAB PO ONE (18:00)
[2023-07-08] MEDS ORDERED: WARFARIN 1 MG TAB PO ONE (18:00)
--- NOTE | 2023-07-08 19:26 | P.PN ---
Subjective This is a pleasant 73 years old female with past medical history of Atrial Fibrillation, Coronary Artery Disease (CAD), Hyperlipidemia, Hypertension, Myocardial Infarction ([place]), Osteoarthritis (OA) Additional Past Medical History / Comment(s): CHRONIC HEADACHES, CHRONIC CONSTIPATION Patient presents because of fever and increased frequency of urination and burning. Also she she was feeling dizzy this morning at 5:30 AM also with nausea but no vomiting no pain. Patient also with generalized weakness and lethargic. Poor appetite. No abdominal pain. With the vomiting as above. She has chronic headache could be migrated. No new weakness or numbness in extremities. No blurred vision. Patient denies smoking alcohol or illicit drugs 07/07/2023 Patient is feeling better today with less severe symptomspain. No significant urinary symptoms or suprapubic discomfort. She tolerates diet well. No vomiting. Her leukocytosis improved. Urine culture and blood culture are still pending and patient remains on ceftriaxone. ID team consulted However hemoglobin dropped 10.7 down to 8.9, INR is improved down to 3.2, she takes 2.5 mg of Coumadin at home, therefore we going to give her 1 mg tonight and check INR tomorrow. We'll check occult blood in stool, start iron pill and consult GI service for her iron deficiency anemia, give extra dose of Protonix tonight. Because of the anemia was started the patient on normal saline at 50 mL/h. Monitor vitals and hemoglobin On admission patient had hyponatremia 123, she received normal saline and emergency room and started on normal saline 75 mL/h within 6 hours her sodium improved to up 1:30, to slow down her sodium rate of correction we stopped her normal saline and give her 4 hours of half normal saline, repeat sodium 131 this morning. Patient also is asymptomatic. 07/08/2023 Reports improvement in her symptoms and strength, overall she feels better but not back to normal status She has minimal pain, no right costovertebral angle tenderness. She remains on Rocephin 2 g daily pending final culture results of the blood in urine. Her anemia is stable with hemoglobin 8.8, GI consult is appreciated, no need for endoscopy as patient had recent one 1 year ago. Anticoagulation continued and we will monitor closely INR low 1.3 today she received 1 mg of Coumadin yesterday and today will give 3.5 mg and monitor INR tomorrow Counts with the patient and she verbalized understanding and acceptance and all her questions are answered to his satisfaction. Sodium improving slowly and 31 yesterday and 135 today Objective - Vital Signs Vital signs: Vital Signs Temp 97.8 F 07/08/23 12:19 Pulse 67 07/08/23 12:19 Resp 18 07/08/23 12:19 BP 143/86 07/08/23 12:19 Pulse Ox 98 07/08/23 12:19 FiO2 Intake & Output 07/07/23 07/08/23 07/08/23 18:59 06:59 18:59 Other: Voiding Method Toilet Toilet Toilet # Voids 2 - Exam GENERAL: The patient is alert and oriented x3, not in any acute distress. Well developed, well nourished. HEENT: Pupils are round and equally reacting to light. EOMI. No scleral icterus. No conjunctival pallor. Normocephalic, atraumatic. No pharyngeal erythema. No thyromegaly. CARDIOVASCULAR: S1 and S2 present. No murmurs, rubs, or gallops. PULMONARY: Chest is clear to auscultation, no wheezing , no crackles. -ABDOMEN: Soft, nontender, nondistended, normoactive bowel sounds. No palpable organomegaly. Mild costovertebral angle tenderness MUSCULOSKELETAL: No joint swelling or deformity. EXTREMITIES: No cyanosis, clubbing, or pedal edema. NEUROLOGICAL: Gross neurological examination did not reveal any focal deficits. SKIN: No rashes. no petechiae. - Labs CBC & Chem 7: 07/08/23 05:36 07/08/23 05:36 Labs: Abnormal Lab Results - Last 24 Hours (Table) 07/08/23 07/08/23 07/08/23 Range/Units 05:36 05:36 05:36 RBC 2.86 L (4.10-5.20) X 10*6/uL Hgb 8.8 L (12.0-15.0) d/dL Hct 26.2 L (37.2-46.3) % Lymphocytes # 0.76 L (0.90-5.00) X 10*3/uL PT 13.6 H (9.0-12.0) sec INR 1.3 H (<1.2) Est GFR (CKD-EPI) 59 L (>=60) BUN/Creatinine Ratio 10.30 L (12.00-20.00) Ratio Calcium 8.2 L (8.7-10.3) mg/dL Microbiology - Last 24 Hours (Table) 07/06/23 11:39 Blood Culture - Preliminary Blood 07/06/23 11:30 Blood Culture - Preliminary Blood 07/06/23 11:39 Urine Culture - Final Urine,Voided Assessment and Plan Assessment: Acute UTI with right pyelonephritis, failed outpatient treatment Dizziness with nauseous, most likely secondary to above coagulopathy secondary to Coumadin, improving Anemia with iron deficiency anemia suspected Chronic atrial fibrillation on warfarin History of coronary artery disease Diabetes mellitus Hypertension Hyperlipidemia History of osteoarthritis Hypothyroidism Plan: Continue with ceftriaxone follow-up urine culture and blood culture. Infectious disease consult Start normal saline at 50 mL per hour Follow-up blood culture and urine culture Continue Coumadin and monitor INR Labs and medication were reviewed.. Continue same treatment. Continue with symptomatic treatment. Resume home medication. Monitor lytes and vitals. DVT and GI prophylaxis. Further recommendations depends on the clinical course of the patient DVT prophylaxis: on warfarin GI Prophylaxis: Ppi Prognosis is guarded
[2023-07-08] MEDS: METOPROLOL SUCCINATE (ER) 25 MG TAB.ER.24H PO SCH (20:50)
[2023-07-08] MEDS: PANTOPRAZOLE 40 MG TABLET PO SCH (20:50)
[2023-07-08] MEDS: ASPIRIN 81 MG PO SCH (20:50)
[2023-07-08 21:35] VITALS: RESP 16
[2023-07-08] MEDS: TEMAZEPAM 7.5 MG CAP PO PRN (21:54)
[2023-07-09 05:39] LABS: INR 1.6 (<1.2); Prothrombin Time 15.8 sec (9.0-12.0)
[2023-07-09] MEDS: SENNOSIDES 8.6 MG TAB PO SCH (07:53)
[2023-07-09] MEDS: FERROUS SULFATE 325 MG TAB PO SCH (07:53)
[2023-07-09] MEDS: RANOLAZINE 500 MG TAB.ER.12H PO SCH (07:54)
[2023-07-09 09:13] LABS: Blood Urea Nitrogen 6.4 mg/dL (9.0-27.0); Calcium 8.1 mg/dL (8.7-10.3); Carbon Dioxide 22.8 mmol/L (21.6-31.8); Chloride 105 mmol/L (96-109); Glucose 101 mg/dL (70-110); Sodium 137 mmol/L (135-145)
[2023-07-09 09:16] LABS: Basophils # (A) 0.03 X 10*3/uL (0.00-0.10); Basophils % (A) 0.5 %; Eosinophils # (A) 0.35 X 10*3/uL (0.04-0.35); Eosinophils % (A) 5.5 %; HCT 27.6 % (37.2-46.3); HGB 9.3 d/dL (12.0-15.0); Lymphocytes # (A) 1.01 X 10*3/uL (0.90-5.00); Lymphocytes % (A) 15.8 %; MCH 31.1 pg (27.0-32.0); MCHC 33.7 d/dL (32.0-37.0); MCV 92.3 FL (80.0-97.0); Mean Platelet Volume 11.2 FL (9.5-12.2); Monocytes # (A) 1.11 X 10*3/uL (0.20-1.00); Monocytes % (A) 17.4 %; NRBC Per 100 WBC 0 X 10*3/uL (0.00-0.01); Neutrophils # (A) 3.73 X 10*3/uL (1.80-7.70); Neutrophils % (A) 58.4 %; Platelet Count 205 X 10*3/uL (140-440); RBC 2.99 X 10*6/uL (4.10-5.20); RDW 13.2 % (11.5-14.5); WBC 6.38 X 10*3/uL (4.50-10.00)
[2023-07-09 11:29] VITALS: BP 146/81; PULSE 64; TEMP 98.4
[2023-07-09] MEDS: SODIUM CHLORIDE 0.9% 1,000 ML IV SCH (12:41)
--- NOTE | 2023-07-09 12:47 | P.PN ---
Subjective Progress Note Date: 07/09/23 Principal diagnosis: Anemia This is a pleasant 73-year-old female who was recently diagnosed with a urinary tract infection with continued lower abdominal discomfort and urinary burning who presented to the emergency department with concerns for pyelonephritis. She has a past medical history including atrial fibrillation on Coumadin, coronary artery disease, hyperlipidemia, hypertension, chronic constipation, and chronic anemia. On presentation patient had INR of 6.6, hemoglobin 10.7 with a drop to 8.8 today. Gastroenterology was consulted for anemia. Patient states she's had a workup with EGD and colonoscopy a year ago done in [place] for anemia as well. She has no prior history of GI bleed. Denies any blood in her stool or black stool. No abdominal pain, nausea or vomiting. Iron studies consistent with a mild iron deficiency anemia. She was started on oral iron. Currently being treated for pyelonephritis. Labs WBC 7.2 hemoglobin 8.8 hematocrit 26 platelet count 168,000 INR 1.3 sodium 135 potassium 4.3 BUN 10.3 creatinine 1.0 iron 20 TIBC 235 saturation 8.5 para 12/24/1975 total bilirubin 1.0 AST 41 AST 30 alkaline phosphatase 69 amylase 44 lipase 42 vitamin B12 1297 folate 15.2 07/09/2023 next week patient seen and examined today as follow-up. She continues to deny any signs or symptoms of GI bleed. No blood in her stool or black stool. No abdominal pain, nausea or vomiting. Patient states she is feeling better and would like to go home. She has not had a bowel movement in several days but states that she takes a herbal supplement at home which is the only thing that works. Hemoglobin stable at 9.3 Objective - Vital Signs Vital signs: Vital Signs Temp 98.7 F 07/09/23 07:19 Pulse 67 07/09/23 07:19 Resp 16 07/09/23 07:19 BP 151/86 07/09/23 07:19 Pulse Ox 98 07/09/23 07:19 FiO2 Intake & Output 07/08/23 07/09/23 07/09/23 18:59 06:59 18:59 Intake Total 1200 Balance 1200 Intake: Intake, IV Titration 600 Amount Sodium Chloride 0.9% 1, 600 000 ml @ 50 mls/hr IV . Q20H [facility] Rx#:[id number] Oral 600 Other: Voiding Method Toilet Toilet Toilet # Voids 3 3 - Exam General appearance: The patient is alert, oriented, appears in no acute distress. HET: Head is normocephalic and atraumatic. Conjunctiva pink. Sclera anicteric. Neck: Supple without lymphadenopathy. Abdomen: Soft, nontender, nondistended with bowel sounds. No guarding or rigidity. Extremities: Normal skin color and turgor. No pedal edema Skin: No rashes, no jaundice Neurological: No focal deficits. Alert and oriented. - Labs CBC & Chem 7: 07/09/23 05:17 07/09/23 05:17 Labs: Abnormal Lab Results - Last 24 Hours (Table) 07/08/23 07/08/23 07/09/23 Range/Units 05:36 05:36 05:17 RBC 2.86 L (4.10-5.20) X 10*6/uL Hgb 8.8 L (12.0-15.0) d/dL Hct 26.2 L (37.2-46.3) % Lymphocytes # 0.76 L (0.90-5.00) X 10*3/uL PT 15.8 H (9.0-12.0) sec INR 1.6 H (<1.2) Est GFR (CKD-EPI) 59 L (>=60) BUN/Creatinine Ratio 10.30 L (12.00-20.00) Ratio Calcium 8.2 L (8.7-10.3) mg/dL Microbiology - Last 24 Hours (Table) 07/06/23 11:39 Blood Culture - Preliminary Blood 07/06/23 11:30 Blood Culture - Preliminary Blood Assessment and Plan (1) Anemia Narrative/Plan: 73-year-old female with a history of anemia presented to the hospital with pyelonephritis. Patient has a history coronary artery disease, atrial fibrillation on warfarin. INR was 6.6 on admission currently now 1.3 however patient did have admitting hemoglobin and the tendons with a drop to 8.8. No signs or symptoms of GI bleed. She denies any abdominal pain, no blood in her stool or black stool. No hematemesis or epigastric pain. No history of GI bleed however does state she does have a history of anemia and has been worked up a year ago with an EGD and colonoscopy at that time done in [place]. Report not available however patient states there was no signs of bleeding noted. The patient states she currently feels fine, no abdominal pain or epi gastric pain. No plans at this time for endoscopic evaluation. Anemia possible chronic disease with a component of iron deficiency anemia. Patient Higuera started on iron supplementation which I agree with. Current Visit: Yes Status: Acute Code(s): D64.9 - ANEMIA, UNSPECIFIED SNOMED Code(s): 258762320 (2) Pyelonephritis Current Visit: Yes Status: Acute Code(s): N12 - TUBULO-INTERSTITIAL NEPHRI TIS, NOT SPCF ACUTE OR CHRONIC SNOMED Code(s): 37631714 (3) Coronary artery disease Current Visit: Yes Status: Acute Code(s): I25.10 - ATHSCL HEART DISEASE OF [place] CORONARY ARTERY W/O ANG PCTRS SNOMED Code(s): 35491326 (4) Atrial fibrillation Current Visit: Yes Status: Acute Code(s): I48.91 - UNSPECIFIED ATRIAL FIBRILLATION SNOMED Code(s): 44783130 Plan: 1. Continue symptomatic and supportive care 2. Daily CBC, transfuse for hemoglobin less than 7 3. Continue with iron twice a day 4. Patient had recent EGD and colonoscopy 1 year ago as part of anemia workup, report not available at this time however patient states there is no bleeding noted 5. May continue anticoagulation 6. No plans on endoscopic evaluation at this time Thank you for this consultation, the patient is cleared from gastroenterology for discharge. Dr. Eric Mckeon I agree with the dictator's note, documented as a scribe by Tammy Davison.
[2023-07-09] MEDS ORDERED: WARFARIN 2.5 MG TAB PO ONE (18:00)
--- NOTE | 2023-07-09 22:52 | P.DS ---
Providers Date of admission: 07/06/23 13:48 Attending physician: Javed Chavez Consults: 07/06/23 19:44 Consult Physician Routine Consulting Provider: Jonel Andrews Consult Reason/Comments: pylenephritis Do you want consulting provider notified?: Yes 07/07/23 18:14 Consult Physician Routine Consulting Provider: Jyotsna Mckeon Consult Reason/Comments: anemia Do you want consulting provider notified?: Yes, Notify in am Primary care physician: Lizzy Hernandez Hospital Course: Diagnoses: Acute UTI with right pyelonephritis, failed outpatient treatment Dizziness with nauseous, most likely secondary to above , she'll coagulopathy secondary to Coumadin, improving Anemia with iron deficiency anemia suspected, cleared by GI team Chronic atrial fibrillation on warfarin History of coronary artery disease Diabetes mellitus Hypertension Hyperlipidemia History of osteoarthritis Hypothyroidism Hospital course: This is a pleasant 73 years old female with past medical history of Atrial Fibrillation, Coronary Artery Disease (CAD), Hyperlipidemia, Hypertension, Myocardial Infarction ([place]), Osteoarthritis (OA) Additional Past Medical History / Comment(s): CHRONIC HEADACHES, CHRONIC CONSTIPATION Patient presents because of fever and increased frequency of urination and burning. Also she she was feeling dizzy this morning at 5:30 AM also with nausea but no vomiting no pain. Patient also with generalized weakness and lethargic. Patient is found to have right pyelonephritis and acute urinary tract infection and she was treated with broad-spectrum antibiotic with ceftriaxone, patient evaluated by ID team. Urine culture came back negative. Patient's symptoms improved significantly and today she states that she became asymptomatic and she is back to her on itself and she wants to go home today. at bedside agrees with that and says that he will keep monitor her while at home. Patient will be discharged on oral antibiotic Ceftin 10 days per ID team Also patient with evidence of coagulopathy with INR was 6.6 upon admission, improved on 1.6 today. I offered to give for bridging with Lovenox patient and at bedside For risk of bleeding, she said she will continue taking Coumadin which she has at home at 2.5 mg tonight and she will go and check her INR tomorrow with police commanding officer office Dr. Vicente and adjust dose of Coumadin accordingly with her doctor. Risks and benefits are explained for the patient and in details and they verbalized understanding and acceptance GI team evaluated the patient for anemia, no need for endoscopy, hemoglobin remained stable over the last 48 hour 8.9 and 8.8. Patient denies any other new symptoms and she is eager to go home today. Patient was cleared for discharge by GI and ID teams Problems and management plan were discussed with the patient and he verbalized understanding and acceptance Patient was found stable and can be discharged home in guarded prognosis however he needs follow-up as an outpatient. Patient was instructed to follow up with PCP Dr. Hernandez within one week and patient agrees Patient was instructed to follow up with Dr. Mckeon in one week and she agrees to call and make her own appointment Physical exam Gen: patient is a AAOx3, no distress CVS: S1-S2, RRR, no murmur Lungs: B/L CTA, no wheezing Abdomen: soft, no distention, no tenderness, positive bowel sounds Extremity: no leg edema or induration Time spent more than 35 minutes Patient Condition at Discharge: Fair Plan - Discharge Summary Discharge Rx Participant: Yes New Discharge Prescriptions: New RX: Sennosides [Senokot] 8.6 mg PO BID 15 Days #30 tab cefUROXime axetiL [Ceftin] 500 mg PO BID 10 Days #20 tab RX: Lactulose [Cephulac] 30 gm PO TID PRN 10 Days #1000 ml PRN Reason: Constipation RX: Ferrous Sulfate [Iron (65 MG Elemental)] 325 mg PO BID-W/MEALS #60 tab Continue RX: Ranolazine [Ranexa] 1,000 mg PO Q12HR RX: Aspirin 81 mg PO HS RX: Pantoprazole Sodium 40 mg PO HS RX: Rosuvastatin Calcium [Crestor] 5 mg PO Q2D@2100 RX: Warfarin [Coumadin] 2.5 mg PO HS RX: Metoprolol Succinate (ER) [Toprol XL] 37.5 mg PO HS Discontinued Cephalexin [Keflex] 500 mg PO Q8HR #30 cap Discharge Medication List RX: Ranolazine [Ranexa] 1,000 mg PO Q12HR 03/03/22 [History] RX: Rosuvastatin Calcium [Crestor] 5 mg PO Q2D@2100 04/20/22 [History] RX: Aspirin 81 mg PO HS 07/06/23 [History] RX: Metoprolol Succinate (ER) [Toprol XL] 37.5 mg PO HS 07/06/23 [History] RX: Pantoprazole Sodium 40 mg PO HS 07/06/23 [History] RX: Warfarin [Coumadin] 2.5 mg PO HS 07/06/23 [History] RX: Ferrous Sulfate [Iron (65 MG Elemental)] 325 mg PO BID-W/MEALS #60 tab 07/09/23 [Rx] RX: Lactulose [Cephulac] 30 gm PO TID PRN 10 Days #1000 ml 07/09/23 [Rx] RX: Sennosides [Senokot] 8.6 mg PO BID 15 Days #30 tab 07/09/23 [Rx] cefUROXime axetiL [Ceftin] 500 mg PO BID 10 Days #20 tab 07/09/23 [Rx] Follow up Appointment(s)/Referral(s): Jyotsna Mckeon MD [STAFF PHYSICIAN] - 07/23/23 4:00 pm Lizzy Hernandez DO [Primary Care Provider] - 1-2 days (please call for your appointment, office currently closed.) Jonel Andrews MD [STAFF PHYSICIAN] - 07/20/23 2:45 pm Patient Instructions/Handouts: Urinary Tract Infection in Women (DC), Hyponatremia (DC), Kidney Infection (DC) Activity/Diet/Wound Care/Special Instructions: heart heathy diet activity is restricted till you see your doctor we recommend to check your INR with office tomorrow and adjust your coumadine dose accordingly your goal INR is 2.0-3.0 Discharge Disposition: HOME SELF-CARE
== END 2023-07-09 13:40 | disposition home or self-care (01) | DRG 690 ==
LOC: EC 11:10 → 5NMEDONC 13:48
PROVIDERS: ADMIT Hospitalist; ATTEND Hospitalist
DX: N12 Tubulo-interstitial nephritis, not specified as acute or chronic (principal); I48.20 Chronic atrial fibrillation, unspecified; E87.1 Hypo-osmolality and hyponatremia; R79.1 Abnormal coagulation profile; T45.515A Adverse effect of anticoagulants, initial encounter; Z79.01 Long term (current) use of anticoagulants; E03.9 Hypothyroidism, unspecified; Z79.82 Long term (current) use of aspirin; I10 Essential (primary) hypertension; Z82.49 Family history of ischemic heart disease and other diseases of the circulatory system; D63.8 Anemia in other chronic diseases classified elsewhere; I25.2 Old myocardial infarction; I25.10 Atherosclerotic heart disease of native coronary artery without angina pectoris; G47.00 Insomnia, unspecified; E86.0 Dehydration; E78.5 Hyperlipidemia, unspecified; D50.9 Iron deficiency anemia, unspecified; R51.9 Headache, unspecified; M19.90 Unspecified osteoarthritis, unspecified site; K59.09 Other constipation; Z28.310 Unvaccinated for COVID-19
CPT/HCPCS: 36415; 80048; 80051; 80053; 81001; 82150; 82607; 82728; 82746; 83540; 83550; 83690; 84145; 85025; 85610; 87040; 87086; 87635; 93005; 96361; 96365; 96375; 99285

== ENCOUNTER 2024-01-26 03:08 | Observation (INO) | payer MEDICARE ==
--- NOTE | 2024-01-26 03:42 | ED ---
Weakness HPI - General Chief complaint: Weakness Stated complaint: WEAKNESS Time Seen by Provider: 01/26/24 03:16 Source: patient, EMS Mode of arrival: EMS Limitations: altered mental status - History of Present Illness Initial comments: This patient is 73-year-old woman who presents with complaint that she is experiencing fatigue and generalized weakness. She was not able to get around her house to get to the bathroom. Her called EMS. Patient had been diagnosed with cold bid 19 infection 2 days ago. Patient denies significant shortness of breath. She has mild cough. She has not had vomiting or diarrhea. MD Complaint: generalized weakness, difficulty walking Onset/Timin -: days(s) Location: generalized Severity scale (1-10): 0 Consistency: constant Improves with: none Worsens with: exertion Associated Symptoms: confusion - Related Data Home Medications Medication Instructions Recorded Confirmed Ranolazine [Ranexa] 1,000 mg PO Q12HR 03/03/22 07/06/23 Rosuvastatin Calcium [Crestor] 5 mg PO Q2D@2100 04/20/22 07/06/23 Aspirin 81 mg PO HS 07/06/23 07/06/23 Metoprolol Succinate (ER) [Toprol 37.5 mg PO HS 07/06/23 07/06/23 XL] Pantoprazole Sodium 40 mg PO HS 07/06/23 07/06/23 Warfarin [Coumadin] 2.5 mg PO HS 07/06/23 07/06/23 Previous Rx's Medication Instructions Recorded Ferrous Sulfate [Iron (65 MG 325 mg PO BID-W/MEALS #60 tab 07/09/23 Elemental)] Lactulose [Cephulac] 30 gm PO TID PRN 10 Days #1000 ml 07/09/23 Sennosides [Senokot] 8.6 mg PO BID 15 Days #30 tab 07/09/23 cefUROXime axetiL [Ceftin] 500 mg PO BID 10 Days #20 tab 07/09/23 Allergies Allergy/AdvReac Type Severity Reaction Status Date / Time latex Allergy Intermediate Rash/Hives Verified 07/06/23 12:40 Review of Systems ROS Statement: Those systems with pertinent positive or pertinent negative responses have been documented in the HPI. ROS Other: All systems not noted in ROS Statement are negative. Constitutional: Reports: chills, weakness. Denies: fever Eyes: Denies: vision change Respiratory: Reports: cough. Denies: dyspnea, wheezes, hemoptysis Cardiovascular: Denies: chest pain, palpitations, orthopnea, edema, syncope Gastrointestinal: Denies: abdominal pain, nausea, vomiting, diarrhea Genitourinary: Denies: dysuria, hematuria Musculoskeletal: Denies: back pain Skin: Denies: rash Neurological: Reports: confusion. Denies: headache, weakness, numbness Past Medical History Past Medical History: Atrial Fibrillation, Coronary Artery Disease (CAD), H yperlipidemia, Hypertension, Myocardial Infarction ([place]), Osteoarthritis (OA) Additional Past Medical History / Comment(s): CHRONIC HEADACHES, CHRONIC CONSTIPATION, CARPAL TUNNEL WITH RECENT STEROID INJECTION. , STATES OCCASIONAL TIGHTNESS IN HER CHEST WITH EXERCISE., SEE CARDIOLOGY H & P. Last Myocardial Infarction Date:: 2005 History of Any Multi-Drug Resistant Organisms: None Reported Past Surgical History: Heart Catheterization With Stent Additional Past Surgical History / Comment(s): cataracts Past Anesthesia/Blood Transfusion Reactions: No Reported Reaction Date of Last Stent Placement:: 2005 Past Psychological History: No Psychological Hx Reported Smoking Status: Former smoker Past Alcohol Use History: None Reported Past Drug Use History: None Reported - Past Family History Father Family Medical History: Coronary Artery Disease (CAD) Additional Family Medical History / Comment(s): Heart disease Mother Family Medical History: Coronary Artery Disease (CAD), Diabetes Mellitus Additional Family Medical History / Comment(s): heart disease Brother(s) Family Medical History: Cancer, Coronary Artery Disease (CAD) Additional Family Medical History / Comment(s): PROSTATE CANCER Sister(s) Family Medical History: No Reported History Daughter(s) Family Medical History: No Reported History Son(s) Family Medical History: No Reported History Additional Family Medical History / Comment(s): Patient has 11 grandkids. General Exam Limitations: no limitations General appearance: alert, in no apparent distress Head exam: Present: atraumatic, normocephalic Eye exam: Present: normal appearance. Absent: scleral icterus, conjunctival injection ENT exam: Present: normal oropharynx Neck exam: Present: normal inspection, full ROM. Absent: meningismus Respiratory exam: Present: rales. Absent: respiratory distress, wheezes, rhonchi, stridor, accessory muscle use Cardiovascular Exam: Present: regular rate, normal rhythm, normal heart sounds. Absent: systolic murmur, diastolic murmur, rubs, gallop GI/Abdominal exam: Present: soft. Absent: distended, tenderness, guarding, rebound, rigid, mass, pulsatile mass Extremities exam: Present: normal inspection, normal capillary refill. Absent: pedal edema, calf tenderness Back exam: Present: normal inspection. Absent: CVA tenderness (R), CVA tenderness (L) Neurological exam: Present: alert, CN II-XII intact, motor sensory deficit. Ab sent: oriented X3 Skin exam: Present: warm, dry, intact, normal color. Absent: rash Course Vital Signs 01/26/24 01/26/24 01/26/24 03:11 04:06 05:14 Temperature 98.0 F 97.8 F Pulse Rate 61 56 L 60 Respiratory 18 16 16 Rate Blood Pressure 185/89 158/83 141/73 O2 Sat by Pulse 96 95 96 Oximetry EKG Findings - EKG Results: EKG: interpreted by ERMD, sinus rhythm, normal axis, normal ST/T EKG shows: bradycardia (Rate 59 bpm) - Blocks, [place], Hypertrophy, ST Abn: AV and intraventricular conduction: 1 AV block - [place], Pacemaker, Normal: Myocardial infarction: septal [place] (old age or indeterminate) Medical Decision Making - Lab Data Result diagrams: 01/26/24 03:36 01/26/24 03:36 Lab Results 01/26/24 01/26/24 01/26/24 Range/Units 03:36 03:36 03:36 WBC 3.4 L (3.8-10.6) k/uL RBC 3.53 L (3.80-5.40) m/uL Hgb 11.3 L (11.4-16.0) gm/dL Hct 32.8 L (34.0-46.0) % MCV 92.9 (80.0-100.0) fL MCH 31.9 (25.0-35.0) pg MCHC 34.3 (31.0-37.0) g/dL RDW 12.7 (11.5-15.5) % Plt Count 170 (150-450) k/uL MPV 8.8 Neutrophils % 55 % Lymphocytes % 32 % Monocytes % 9 % Eosinophils % 3 % Basophils % 0 % Neutrophils # 1.9 (1.3-7.7) k/uL Lymphocytes # 1.1 (1.0-4.8) k/uL Monocytes # 0.3 (0-1.0) k/uL Eosinophils # 0.1 (0-0.7) k/uL Basophils # 0.0 (0-0.2) k/uL PT 11.7 (10.0-12.5) sec INR 1.1 (<1.2) APTT 39.8 H (22.0-30.0) sec Sodium 129 L (137-145) mmol/L Potassium 4.4 (3.5-5.1) mmol/L Chloride 101 (98-107) mmol/L Carbon Dioxide 22 (22-30) mmol/L Anion Gap 6 mmol/L BUN 4 L (7-17) mg/dL Creatinine 0.57 (0.52-1.04) mg/dL Est GFR (CKD-EPI)AfAm >90 (>60 ml/min/1.73 sqM) Est GFR (CKD-EPI)NonAf >90 (>60 ml/min/1.73 sqM) Glucose 107 H (74-99) mg/dL Plasma Lactic Acid Kali (0.7-2.0) mmol/L Calcium 8.6 (8.4-10.2) mg/dL Magnesium 1.8 (1.6-2.3) mg/dL Total Bilirubin 0.6 (0.2-1.3) mg/dL AST 34 (14-36) U/L ALT 20 (4-34) U/L Alkaline Phosphatase 55 (38-126) U/L Troponin I (0.000-0.034) ng/mL Total Protein 6.0 L (6.3-8.2) g/dL Albumin 3.8 (3.5-5.0) g/dL Urine Color Urine Appearance (Clear) Urine pH (5.0-8.0) Ur Specific [place] (1.001-1.035) Urine Protein (Negative) Urine Glucose (UA) (Negative) Urine Ketones (Negative) Urine Blood (Negative) Urine Nitrite (Negative) Urine Bilirubin (Negative) Urine Urobilinogen (<2.0) mg/dL Ur Leukocyte Esterase (Negative) 01/26/24 01/26/24 01/26/24 Range/Units 03:36 03:36 03:36 WBC (3.8-10.6) k/uL RBC (3.80-5.40) m/uL Hgb (11.4-16.0) gm/dL Hct (34.0-46.0) % MCV (80.0-100.0) fL MCH (25.0-35.0) pg MCHC (31.0-37.0) g/dL RDW (11.5-15.5) % Plt Count (150-450) k/uL MPV Neutrophils % % Lymphocytes % % Monocytes % % Eosinophils % % Basophils % % Neutrophils # (1.3-7.7) k/uL Lymphocytes # (1.0-4.8) k/uL Monocytes # (0-1.0) k/uL Eosinophils # (0-0.7) k/uL Basophils # (0-0.2) k/uL PT (10.0-12.5) sec INR (<1.2) APTT (22.0-30.0) sec Sodium (137-145) mmol/L Potassium (3.5-5.1) mmol/L Chloride (98-107) mmol/L Carbon Dioxide (22-30) mmol/L Anion Gap mmol/L BUN (7-17) mg/dL Creatinine (0.52-1.04) mg/dL Est GFR (CKD-EPI)AfAm (>60 ml/min/1.73 sqM) Est GFR (CKD-EPI)NonAf (>60 ml/min/1.73 sqM) Glucose (74-99) mg/dL Plasma Lactic Acid Kali 1.0 (0.7-2.0) mmol/L Calcium (8.4-10.2) mg/dL Magnesium (1.6-2.3) mg/dL Total Bilirubin (0.2-1.3) mg/dL AST (14-36) U/L ALT (4-34) U/L Alkaline Phosphatase (38-126) U/L Troponin I <0.012 (0.000-0.034) ng/mL Total Protein (6.3-8.2) g/dL Albumin (3.5-5.0) g/dL Urine Color Colorless Urine Appearance Clear (Clear) Urine pH 8.0 (5.0-8.0) Ur Specific [place] 1.008 (1.001-1.035) Urine Protein Negative (Negative) Urine Glucose (UA) Negative (Negative) Urine Ketones Negative (Negative) Urine Blood Negative (Negative) Urine Nitrite Negative (Negative) Urine Bilirubin Negative (Negative) Urine Urobilinogen <2.0 (<2.0) mg/dL Ur Leukocyte Esterase Negative (Negative) Disposition Clinical Impression: COVID-19, Weakness, Delirium Disposition: ADMITTED IP TO THIS HOSP Is patient prescribed a controlled substance at d/c from ED?: No
[2024-01-26 03:54] LABS: ALT 20 U/L (4-34); AST 34 U/L (14-36); African American GFR (CKD) >90 (>60 ml/min/1.73 sqM); Albumin 3.8 g/dL (3.5-5.0); Alkaline Phosphatase 55 U/L (38-126); Anion Gap 6 mmol/L; Blood Urea Nitrogen 4 mg/dL (7-17); Calcium 8.6 mg/dL (8.4-10.2); Carbon Dioxide 22 mmol/L (22-30); Chloride 101 mmol/L (98-107); Glucose 107 mg/dL (74-99); Magnesium 1.8 mg/dL (1.6-2.3); Non-African American GFR(CKD) >90 (>60 ml/min/1.73 sqM); Potassium 4.4 mmol/L (3.5-5.1); Sodium 129 mmol/L (137-145); Total Bilirubin 0.6 mg/dL (0.2-1.3)
[2024-01-26 04:20] LABS: Basophils % (A) 0 %; Eosinophils # (A) 0.1 k/uL (0-0.7); Eosinophils % (A) 3 %; HCT 32.8 % (34.0-46.0); HGB 11.3 gm/dL (11.4-16.0); Lymphocytes # (A) 1.1 k/uL (1.0-4.8); Lymphocytes % (A) 32 %; MCH 31.9 pg (25.0-35.0); MCHC 34.3 g/dL (31.0-37.0); MCV 92.9 fL (80.0-100.0); Mean Platelet Volume 8.8; Monocytes # (A) 0.3 k/uL (0-1.0); Monocytes % (A) 9 %; Neutrophils # (A) 1.9 k/uL (1.3-7.7); Neutrophils % (A) 55 %; Platelet Count 170 k/uL (150-450); RBC 3.53 m/uL (3.80-5.40); RDW 12.7 % (11.5-15.5); WBC 3.4 k/uL (3.8-10.6)
[2024-01-26 04:26] LABS: INR 1.1 (<1.2); Partial Thromboplastin Time 39.8 sec (22.0-30.0); Prothrombin Time 11.7 sec (10.0-12.5)
--- NOTE | 2024-01-26 04:48 | XR ---
EXAM: XR Chest, 2 Views CLINICAL HISTORY: ITS.REASON XR Reason: Weakness TECHNIQUE: Frontal and lateral views of the chest. COMPARISON: 04/20/2022. FINDINGS: Lungs: Unremarkable. No consolidation. Pleural space: Unremarkable. No pneumothorax. Heart: Unremarkable. No cardiomegaly. Mediastinum: Unremarkable. Normal mediastinal contour. Bones/joints: Unremarkable. No acute fracture. IMPRESSION: Normal chest x-rays.
[2024-01-26] MEDS ORDERED: MAG HYDROX/AL HYDROX/SIMETH 30 ML CUP PO PRN (06:08)
[2024-01-26] MEDS ORDERED: NALOXONE 0.4 MG/ML 1 ML VIAL IV PRN (06:08)
[2024-01-26] MEDS ORDERED: ACETAMINOPHEN TAB 325 MG TAB PO PRN (06:08)
[2024-01-26 06:16] LABS: Appearance,Urine Clear (Clear); Bilirubin,Urine Negative (Negative); Blood,Urine Negative (Negative); Color,Urine Colorless; Glucose,Urine (UA) Negative (Negative); Ketones,Urine Negative (Negative); Leukocyte Esterase,Urine Negative (Negative); Nitrite,Urine Negative (Negative); Protein,Urine Negative (Negative); Specific Gravity,Urine 1.008 (1.001-1.035); Urobilinogen,Urine <2.0 mg/dL (<2.0)
[2024-01-26] MEDS: SODIUM CHLORIDE 0.9% 500 ML 500 ML IV STA (06:24)
[2024-01-26] MEDS: SODIUM CHLORIDE 0.9% 1,000 ML IV STA (06:24)
[2024-01-26] MEDS: SODIUM CHLORIDE 0.9% 1,000 ML IV SCH (07:14)
--- NOTE | 2024-01-26 08:08 | P.HPIM ---
History of Present Illness This is a pleasant 73 years old female with past medical history of multiple medical problems including anemia and she follow-up with Dr. Alexandre. She had COVID infection about 2 years ago. Recently patient was tested positive for COVID. Her was diagnosed about 1 week ago. And she tested herself for this reason while she was at symptomatic 3 days ago and she was positive. She was doing fine 1 day earlier but yesterday she started having generalized weakness malaise and sitting and lying in bed and difficult for her to get up. She has some poor appetite Also 1 day earlier she has been having some upper respiratory and sinus symptoms with facial pain at the base of the nose with stuffy nose and some little headache and fatigue. Patient denies chest pain dyspnea or coughing. No change in urine or bowel habits. She has some headache about 5/10 around the nasal area as above Patient states that she takes Eliquis for history of A-fib and she follow-up with her business communications instructor Dr. Vicente. She denies smoking alcohol or illicit drugs. Blood pressure is a stable but was little elevated. CBC showing mild leukopenia and anemia with WBC 3.4 and hemoglobin 11.3. She has mild hyponatremia with sodium 129. Rest of BMP, INR, liver enzymes urine analysis and troponin were unremarkable Chest x-ray is negative for acute process EKG sinus bradycardia at [address]-T changes. In the emergency room she was started on normal saline at 75 mL/h at bedside and help with history taking. I asked the to bring updated list of her medication and he agrees. As in the system it was listed as warfarin. Review of Systems Review of systems -CONSTITUTIONAL: No fever, positive for malaise, positive for fatigue. HEENT: No recent visual problems or hearing problems. Denied any sore throat. CARDIOVASCULAR: No orthopnea, PND, no palpitations, no syncope. PULMONARY: No shortness of breath, no cough, no hemoptysis. GASTROINTESTINAL: No diarrhea, no nausea, no vomiting, no abdominal pain. Normoactive bowel sounds. NEUROLOGICAL: No headaches, no weakness, no numbness. HEMATOLOGICAL: Denies any bleeding or petechiae. GENITOURINARY: Denies any burning micturition, frequency, or urgency. MUSCULOSKELETAL/RHEUMATOLOGICAL: Denies any joint pain, swelling, or any muscle pain. ENDOCRINE: Denies any polyuria or polydipsia. Past Medical History Past Medical History: Atrial Fibrillation, Coronary Artery Disease (CAD), Hyper lipidemia, Hypertension, Myocardial Infarction ([place]), Osteoarthritis ([place]) Additional Past Medical History / Comment(s): CHRONIC HEADACHES, CHRONIC CONSTIPATION, CARPAL TUNNEL WITH RECENT STEROID INJECTION. , STATES OCCASIONAL TIGHTNESS IN HER CHEST WITH EXERCISE., SEE CARDIOLOGY H & P. Last Myocardial Infarction Date:: 2005 History of Any Multi-Drug Resistant Organisms: None Reported Past Surgical History: Heart Catheterization With Stent Additional Past Surgical History / Comment(s): cataracts Past Anesthesia/Blood Transfusion Reactions: No Reported Reaction Date of Last Stent Placement:: 2005 Past Psychological History: No Psychological Hx Reported Smoking Status: Former smoker Past Alcohol Use History: None Reported Past Drug Use History: None Reported - Past Family History Father Family Medical History: Coronary Artery Disease (CAD) Additional Family Medical History / Comment(s): Heart disease Mother Family Medical History: Coronary Artery Disease (CAD), Diabetes Mellitus Additional Family Medical History / Comment(s): heart disease Brother(s) Family Medical History: Cancer, Coronary Artery Disease (CAD) Additional Family Medical History / Comment(s): PROSTATE CANCER Sister(s) Family Medical History: No Reported History Daughter(s) Family Medical History: No Reported History Son(s) Family Medical History: No Reported History Additional Family Medical History / Comment(s): Patient has 11 grandkids. Medications and Allergies Home Medications Medication Instructions Recorded Confirmed Type Ranolazine [Ranexa] 1,000 mg PO Q12HR 03/03/22 07/06/23 History Rosuvastatin Calcium [Crestor] 5 mg PO Q2D@2100 04/20/22 07/06/23 History Aspirin 81 mg PO HS 07/06/23 07/06/23 History Metoprolol Succinate (ER) [Toprol 37.5 mg PO HS 07/06/23 07/06/23 History XL] Pantoprazole Sodium 40 mg PO HS 07/06/23 07/06/23 History Warfarin [Coumadin] 2.5 mg PO HS 07/06/23 07/06/23 History Ferrous Sulfate [Iron (65 MG 325 mg PO BID-W/MEALS #60 tab 07/09/23 Rx Elemental)] Lactulose [Cephulac] 30 gm PO TID PRN 10 Days #1000 ml 07/09/23 Rx Sennosides [Senokot] 8.6 mg PO BID 15 Days #30 tab 07/09/23 Rx cefUROXime axetiL [Ceftin] 500 mg PO BID 10 Days #20 tab 07/09/23 Rx Allergies Allergy/AdvReac Type Severity Reaction Status Date / Time latex Allergy Intermediate Rash/Hives Verified 07/06/23 12:40 Physical Exam Vitals: Vital Signs Temp Pulse Resp BP Pulse Ox 01/26/24 05:14 97.8 F 60 16 141/73 96 01/26/24 04:06 56 L 16 158/83 95 01/26/24 03:11 98.0 F 61 18 185/89 96 Intake and Output 01/25/24 01/26/24 01/26/24 22:59 06:59 14:59 Other: Weight 61.235 kg GENERAL: The patient is alert and oriented x3, not in any acute distress. Well developed, well nourished. HEENT: Pupils are round and equally reacting to light. EOMI. No scleral icterus. No conjunctival pallor. Normocephalic, atraumatic. No pharyngeal erythema. No thyromegaly. CARDIOVASCULAR: S1 and S2 present. No murmurs, rubs, or gallops. PULMONARY: Chest is clear to auscultation, no wheezing , no crackles. ABDOMEN: Soft, nontender, nondistended, normoactive bowel sounds. No palpable organomegaly. MUSCULOSKELETAL: No joint swelling or deformity. EXTREMITIES: No cyanosis, clubbing, or pedal edema. NEUROLOGICAL: Gross neurological examination did not reveal any focal deficits. SKIN: No rashes. no petechiae. She Results CBC & Chem 7: 01/26/24 03:36 01/26/24 03:36 Labs: Abnormal Lab Results - Last 24 Hours (Table) 01/26/24 01/26/24 01/26/24 Range/Units 03:36 03:36 03:36 WBC 3.4 L (3.8-10.6) k/uL RBC 3.53 L (3.80-5.40) m/uL Hgb 11.3 L (11.4-16.0) gm/dL Hct 32.8 L (34.0-46.0) % APTT 39.8 H (22.0-30.0) sec Sodium 129 L (137-145) mmol/L BUN 4 L (7-17) mg/dL Glucose 107 H (74-99) mg/dL Total Protein 6.0 L (6.3-8.2) g/dL Assessment and Plan Assessment: Acute COVID infection without Clinical or radiological evidence of pneumonia or hypoxia Generalized weakness and malaise secondary to above Hyponatremia which might be contributing to her weakness Dehydration History of anemia Mild leukopenia Paroxysmal atrial fibrillation on Eliquis at home. Currently rate controlled Plan: Start the patient on vitamin C, vitamin D and zinc Continue with IV hydration Resume her Eliquis Will order physical therapy evaluation Pulmonary team were consulted Patient may be considered for discharge in 24 to 48 hours if she remains stable and improving Labs and medication were reviewed.. Continue same treatment. Continue with symptomatic treatment. Resume home medication. Monitor labs and vitals. DVT and GI prophylaxis. Further recommendations as per clinical course of the pat ient DVT prophylaxis: S Eliquis GI Prophylaxis: Pepcid PT/OT: Pending Prognosis is guarded
[2024-01-26] MEDS ORDERED: ENOXAPARIN 40 MG/0.4 ML SYRINGE SQ SCH (09:00)
[2024-01-26] MEDS: ASCORBIC ACID 500 MG TAB PO SCH (09:20)
[2024-01-26] MEDS: ZINC SULFATE 220 MG CAP PO SCH (09:20)
[2024-01-26] MEDS: APIXABAN 5 MG TAB PO SCH (09:20)
[2024-01-26] MEDS: FAMOTIDINE 20 MG TAB PO SCH (09:21)
[2024-01-26] MEDS: CHOLECALCIFEROL 25 MCG (1000 IU) TABLET PO SCH (09:22)
--- NOTE | 2024-01-26 13:42 | P.CNPUL ---
History of Present Illness Consult date: 01/26/24 Requesting physician: Alfredo E Shu Reason for consult: other (COVID-19 infection) Chief complaint: Generalized weakness, inability to walk History of present illness: This is a 73-year-old female patient with a known history of coronary artery disease with previous stent placement, hypertension, hyperlipidemia, atrial fibrillation anticoagulated with Eliquis. Over the past 5 days she has been complaining of increasing weakness and fatigue. Her had tested positive for COVID-19 and she took a test and was positive as well. He was not even able to get up and help herself to the bathroom. EMS was called and she was brought into the hospital early this morning. Chest x-ray revealed no acute pulmonary process. Count 3.4. Hemoglobin 11.3. Platelets 170. Sodium 129. Potassium 4.4. Bicarb 22. BUN 4. Creatinine 0.57. Glucose 107. Urinalysis clean. Viral screen was positive for COVID-19. She is seen today in consultation in the emergency department. Currently resting on a stretcher. Awake and alert in no acute distress. Still feeling quite weak. She is maintaining good O2 saturations in the mid 90s on room air. She is afebrile. Hemodynamically stable. Review of Systems REVIEW OF SYSTEMS: CONSTITUTIONAL: Positive for generalized weakness, fatigue. Denies any recent significant weight loss or weight gain. EYES: Denies change in vision. EARS, NOSE, MOUTH, THROAT: Denies headaches, denies sore throat. CARDIOVASCULAR: Denies chest pain, palpitations or syncopal episodes. RESPIRATORY: Denies shortness of breath, cough, congestion or hemoptysis. GASTROINTESTINAL: Denies change in appetite, denies abdominal pain GENITOURINARY: Denies hematuria, denies infections. MUSKULOSKELETAL: Denies pain, denies swelling. INTEGUMENTARY: Denies rash, denies eczema. NEUROLOGICAL: Denies recent memory loss, no recent seizure activity. PSYCHIATRIC: Denies anxiety, denies depression. HEMATOLOGIC/LYMPHATIC: Denies anemia, denies enlarged lymph nodes. Past Medical History Past Medical History: Atrial Fibrillation, Coronary Artery Disease (CAD), Hyperlipidemia, Hypertension, Myocardial Infarction ([place]), Osteoarthritis (OA) Additional Past Medical History / Comment(s): CHRONIC HEADACHES, CHRONIC CONSTIPATION, CARPAL TUNNEL WITH RECENT STEROID INJECTION. , STATES OCCASIONAL TIGHTNESS IN HER CHEST WITH EXERCISE., SEE CARDIOLOGY [facility]. Last Myocardial Infarction Date:: 2005 History of Any Multi-Drug Resistant Organisms: None Reported Past Surgical History: Heart Catheterization With Stent Additional Past Surgical History / Comment(s): cataracts Past Anesthesia/Blood Transfusion Reactions: No Reported Reaction Date of Last Stent Placement:: 2005 Past Psychological History: No Psychological Hx Reported Smoking Status: Former smoker Past Alcohol Use History: None Reported Past Drug Use History: None Reported - Past Family History Father Family Medical History: Coronary Artery Disease (CAD) Additional Family Medical History / Comment(s): Heart disease Mother Family Medical History: Coronary Artery Disease (CAD), Diabetes Mellitus Additional Family Medical History / Comment(s): heart disease Brother(s) Family Medical History: Cancer, Coronary Artery Disease (CAD) Additional Family Medical History / Comment(s): PROSTATE CANCER Sister(s) Family Medical History: No Reported History Daughter(s) Family Medical History: No Reported History Son(s) Family Medical History: No Reported History Additional Family Medical History / Comment(s): Patient has 11 grandkids. Medications and Allergies Home Medications Medication Instructions Recorded Confirmed Type Ranolazine [Ranexa] 1,000 mg PO Q12HR 03/03/22 01/26/24 History Rosuvastatin Calcium [Crestor] 5 mg PO Q2D@2100 04/20/22 01/26/24 History Metoprolol Succinate (ER) [Toprol 25 mg PO DAILY 07/06/23 01/26/24 History XL] Pantoprazole Sodium 40 mg PO HS 07/06/23 01/26/24 History Apixaban [Eliquis] 5 mg PO BID 01/26/24 01/26/24 History Metoprolol Succinate (ER) [Toprol 12.5 mg PO HS 01/26/24 01/26/24 History Xl] Allergies Allergy/AdvReac Type Severity Reaction Status Date / Time latex Allergy Intermediate Rash/Hives Verified 01/26/24 08:03 Physical Exam Vitals: Vital Signs Temp Pulse Resp BP Pulse Ox 01/26/24 09:17 64 18 151/79 96 01/26/24 05:14 97.8 F 60 16 141/73 96 01/26/24 04:06 56 L 16 158/83 95 01/26/24 03:11 98.0 F 61 18 185/89 96 Intake and Output 01/25/24 01/26/24 01/26/24 22:59 06:59 14:59 Other: Weight 61.235 kg GENERAL EXAM: Alert, weak, pleasant 73-year-old female, on room air, fairly com fortable in no apparent distress. HEAD: Normocephalic. EYES: Normal reaction of pupils, equal size. NOSE: Clear with pink turbinates. THROAT: No erythema or exudates. NECK: No masses, no JVD. CHEST: No chest wall deformity. LUNGS: Equal air entry with no crackles, wheeze, rhonchi or dullness. CVS: S1 and S2 normal with no audible murmur, regular rhythm. ABDOMEN: No hepatosplenomegaly, normal bowel sounds, no guarding or rigidity. SPINE: No scoliosis or deformity SKIN: No rashes CENTRAL NERVOUS SYSTEM: No focal deficits, tone is normal in all 4 extremities. EXTREMITIES: There is no peripheral edema. No clubbing, no cyanosis. Peripheral pulses are intact. Results - Laboratory Findings CBC and BMP: 01/26/24 03:36 01/26/24 03:36 PT/INR, D-dimer PT 11.7 sec (10.0-12.5) 01/26/24 03:36 INR 1.1 (<1.2) 01/26/24 03:36 Abnormal lab findings: Abnormal Labs 01/26/24 01/26/24 01/26/24 03:36 03:36 03:36 WBC 3.4 L RBC 3.53 L Hgb 11.3 L Hct 32.8 L APTT 39.8 H Sodium 129 L BUN 4 L Glucose 107 H Total Protein 6.0 L SARS-CoV-2 (PCR) 01/26/24 09:30 WBC RBC Hgb Hct APTT Sodium BUN Glucose Total Protein SARS-CoV-2 (PCR) Detected A - Diagnostic Findings Chest x-ray: image reviewed Assessment and Plan Assessment: Generalized weakness and fatigue secondary to COVID-19 infection Hyponatremia suspect secondary to poor oral intake COVID-19 infection without evidence of COVID-19 pneumonia Coronary disease with previous stent placement Hypertension Hyperlipidemia Chronic atrial fibrillation anticoagulated with Eliquis Plan: The patient was seen and evaluated Chest x-ray, labs and medications reviewed Continue saline at 75 MLS per hour Continue vitamin supplements Stable and on room air Probable discharge in the a.m. We will continue to follow and make further recommendations based on her clinical status I have personally seen and examined the patient, performed the documentation and the assessment and plan as written. Number of minutes spent on the visit: 20.
[2024-01-26] MEDS: RANOLAZINE 500 MG TAB.ER.12H PO SCH (20:18)
[2024-01-26] MEDS: clonazePAM 0.5 MG TAB PO SCH (20:19)
[2024-01-26] MEDS: METOPROLOL SUCCINATE (ER) 25 MG TAB.ER.24H PO SCH (20:19)
[2024-01-26] MEDS: PANTOPRAZOLE 40 MG TABLET PO SCH (20:20)
[2024-01-26] MEDS ORDERED: APIXABAN 5 MG TAB PO SCH (21:00)
[2024-01-27] MEDS: METOPROLOL SUCCINATE (ER) 25 MG TAB.ER.24H PO SCH (08:34)
[2024-01-27 09:17] VITALS: BP 125/67; PULSE 63; RESP 18; TEMP 98.1
[2024-01-27 09:56] LABS: HCT 34.6 % (34.0-46.0); HGB 11.8 gm/dL (11.4-16.0); MCH 32.2 pg (25.0-35.0); MCV 94.6 fL (80.0-100.0); Mean Platelet Volume 8.2; Platelet Count 194 k/uL (150-450); RBC 3.66 m/uL (3.80-5.40); RDW 12.7 % (11.5-15.5); WBC 3.9 k/uL (3.8-10.6)
[2024-01-27 10:13] LABS: Potassium 3.7 mmol/L (3.5-5.1)
--- NOTE | 2024-01-27 12:48 | P.PN ---
Subjective Progress Note Date: 01/27/24 This is a 73-year-old female patient with a known history of coronary artery disease with previous stent placement, hypertension, hyperlipidemia, atrial fibrillation anticoagulated with Eliquis. Over the past 5 days she has been complaining of increasing weakness and fatigue. Her had tested positive for COVID-19 and she took a test and was positive as well. He was not even able to get up and help herself to the bathroom. EMS was called and she was brought into the hospital early this morning. Chest x-ray revealed no acute pulmonary process. Count 3.4. Hemoglobin 11.3. Platelets 170. Sodium 129. Potassium 4.4. Bicarb 22. BUN 4. Creatinine 0.57. Glucose 107. Urinalysis clean. Viral screen was positive for COVID-19. She is seen today in consultation in the emergency department. Currently resting on a stretcher. Awake and alert in no acute distress. Still feeling quite weak. She is maintaining good O2 saturations in the mid 90s on room air. She is afebrile. Hemodynamically stable. The patient is seen today January 27, 2024 in follow-up on the regular medical floor. She is currently sitting up in bed. Awake and alert in no acute distress. Maintaining good O2 saturations in the 90s on room air. White count 3.9. Hemoglobin 11.8. Platelets 194. Sodium 133. Potassium 3.7. Bicarb 24. She is continued on vitamin supplements. Eliquis for DVT prophylaxis. Objective - Vital Signs Vital signs: Vital Signs Temp 98.1 F 01/27/24 08:00 Pulse 63 01/27/24 08:22 Resp 18 01/27/24 08:22 BP 125/67 01/27/24 08:00 Pulse Ox 98 01/27/24 08:00 FiO2 Intake & Output 01/26/24 01/27/24 01/27/24 18:59 06:59 18:59 Output Total 0 Balance 0 Weight 61.235 kg Output: Urine 0 Other: # Voids 2 - Exam GENERAL EXAM: Alert, active, 73-year-old female, on room air, comfortable in no apparent distress. HEAD: Normocephalic. EYES: Normal reaction of pupils, equal size. NOSE: Clear with pink turbinates. THROAT: No erythema or exudates. NECK: No masses, no JVD. CHEST: No chest wall deformity. LUNGS: Equal air entry with no crackles, wheeze, rhonchi or dullness. CVS: S1 and S2 normal with no audible murmur, regular rhythm. ABDOMEN: No hepatosplenomegaly, normal bowel sounds, no guarding or rigidity. SPINE: No scoliosis or deformity SKIN: No rashes CENTRAL NERVOUS SYSTEM: No focal deficits, tone is normal in all 4 extremities. EXTREMITIES: There is no peripheral edema. No clubbing, no cyanosis. Kika pheral pulses are intact. - Labs CBC & Chem 7: 01/27/24 09:41 01/27/24 09:41 Labs: Abnormal Lab Results - Last 24 Hours (Table) 01/27/24 01/27/24 Range/Units 09:41 09:41 RBC 3.66 L (3.80-5.40) m/uL Sodium 133 L (137-145) mmol/L Assessment and Plan Assessment: Generalized weakness and fatigue secondary to COVID-19 infection Hyponatremia suspect secondary to poor oral intake COVID-19 infection without evidence of COVID-19 pneumonia Coronary disease with previous stent placement Hypertension Hyperlipidemia Chronic atrial fibrillation anticoagulated with Eliquis Plan: The patient was seen and evaluated Labs and medications reviewed Sodium improved to 133 Stable and on room air Cleared for discharge from the pulmonary standpoint Continue vitamin supplements This patient was seen independently by the pulmonary nurse practitioner addressing pulmonary issues I have personally seen and examined the patient, performed the documentation and the assessment and plan as written. Number of minutes spent on the visit: 24.
[2024-01-27] MEDS ORDERED: ATORVASTATIN 10 MG TAB PO SCH (21:00)
--- NOTE | 2024-01-27 23:22 | P.DS ---
Providers Date of admission: 01/26/24 06:08 Attending physician: Javed Chavez Consults: 01/26/24 06:08 Consult Physician Routine Consulting Provider: Blaze Robins Consult Reason/Comments: covid 19 infection Do you want consulting provider notified?: Yes Primary care physician: Lizzy Davis Hospital Course: Diagnoses: Acute COVID infection without Clinical or radiological evidence of pneumonia or hypoxia Generalized weakness and malaise secondary to above Hyponatremia which might be contributing to her weakness. Improved Dehydration. Improved History of anemia Mild leukopenia. Improved Paroxysmal atrial fibrillation on Eliquis at home. Currently rate controlled Hospital course: This is a pleasant 73 years old female with past medical history of multiple medical problems including anemia and she follow-up with Dr. Alexandre. She had COVID infection about 2 years ago. Recently patient was tested positive for COVID. Her was diagnosed about 1 week ago. And she tested herself for this reason while she was at symptomatic 3 days ago and she was positive. She was doing fine 1 day earlier but yesterday she started having generalized weakness malaise and sitting and lying in bed and difficult for her to get up. She has some poor appetite Also 1 day earlier she has been having some upper respiratory and sinus symptoms with facial pain at the base of the nose with stuffy nose and some little headache and fatigue. Patient was admitted to the hospital and she was treated symptomatically and with multiple vitamins and IV fluid. She she received vitamin C, vitamin D and zinc. Also she received Lovenox for DVT prophylaxis and Pepcid as antiacid. Patient short interval improvement on the day of discharge patient denies any respiratory symptoms. No chest pain or dyspnea. No diarrhea or abdominal pain. Tolerates diet well. Sodium improved. Leukopenia improved back to reference range. Hemoglobin stable. Hemodynamically stable patient has no fever. To clear her for discharge. Patient was eager to go home today. Physical therapy evaluated the patient prior to discharge and cleared Problems and management plan were discussed with the patient and he verbalized understanding and acceptance Patient was found stable and can be discharged home in guarded prognosis however he needs follow-up as an outpatient. Patient was instructed to follow up with PCP Dr. Davis within one week and patient agrees Patient also instructed to follow-up with Dr. Montejo as an outpatient and she agrees Physical exam -Gen: patient is a AAOx3, no distress. Generally weak, mild CVS: S1-S2, RRR, no murmur Lungs: B/L CTA, no wheezing Abdomen: soft, no distention, no tenderness, positive bowel sounds Extremity: no leg edema or induration Time spent more than 35 minutes Plan - Discharge Summary Discharge Rx Participant: No New Discharge Prescriptions: New Zinc Sulfate [Orazinc] 220 mg PO DAILY #30 cap Ascorbic Acid [Vitamin C] 1,000 mg PO DAILY #60 tab Cholecalciferol [Vitamin D3 (25 Mcg = 1000 Iu)] 50 mcg PO DAILY #60 tab Continue Ranolazine [Ranexa] 1,000 mg PO Q12HR Pantoprazole Sodium 40 mg PO HS Apixaban [Eliquis] 5 mg PO BID Metoprolol Succinate (ER) [Toprol XL] 12.5 mg PO HS Rosuvastatin Calcium [Crestor] 5 mg PO Q2D@2100 Metoprolol Succinate (ER) [Toprol XL] 25 mg PO DAILY clonazePAM [KlonoPIN] 0.5 mg PO HS Discharge Medication List Ranolazine [Ranexa] 1,000 mg PO Q12HR 03/03/22 [History] Rosuvastatin Calcium [Crestor] 5 mg PO Q2D@2100 04/20/22 [History] Metoprolol Succinate (ER) [Toprol XL] 25 mg PO DAILY 07/06/23 [History] Pantoprazole Sodium 40 mg PO HS 07/06/23 [History] Apixaban [Eliquis] 5 mg PO BID 01/26/24 [History] Metoprolol Succinate (ER) [Toprol XL] 12.5 mg PO HS 01/26/24 [History] clonazePAM [KlonoPIN] 0.5 mg PO HS 01/26/24 [History] Ascorbic Acid [Vitamin C] 1,000 mg PO DAILY #60 tab 01/27/24 [Rx] Cholecalciferol [Vitamin D3 (25 Mcg = 1000 Iu)] 50 mcg PO DAILY #60 tab 01/27/24 [Rx] Zinc Sulfate [Orazinc] 220 mg PO DAILY #30 cap 01/27/24 [Rx] Follow up Appointment(s)/Referral(s): Blaze Robins MD [STAFF PHYSICIAN] - 3 Weeks Lizzy Davis DO [Primary Care Provider] - 03/11/24 8:00 pm Activity/Diet/Wound Care/Special Instructions: Heart healthy diet Activity is restricted until you see your doctor Discharge Disposition: HOME SELF-CARE
== END 2024-01-27 15:06 | disposition home or self-care (01) ==
LOC: EC 03:08 → INTOOBSV 06:08 → 4SSUR 06:08
PROVIDERS: ADMIT Hospitalist; ATTEND Hospitalist
DX: U07.1 COVID-19 (principal); E87.1 Hypo-osmolality and hyponatremia; E86.0 Dehydration; D64.9 Anemia, unspecified; D72.819 Decreased white blood cell count, unspecified; I48.0 Paroxysmal atrial fibrillation; I25.2 Old myocardial infarction; E78.5 Hyperlipidemia, unspecified; I10 Essential (primary) hypertension; M19.90 Unspecified osteoarthritis, unspecified site; Z79.01 Long term (current) use of anticoagulants; Z87.891 Personal history of nicotine dependence; Z82.49 Family history of ischemic heart disease and other diseases of the circulatory system; Z79.899 Other long term (current) drug therapy; Z79.82 Long term (current) use of aspirin; Z95.5 Presence of coronary angioplasty implant and graft
CPT/HCPCS: 36415; 93005; 97161; 97165; 80051; 80053; 83605; 83735; 84484; 85025; 85027; 85610; 85730; 81003; 87636; 71046; G0378 ×2; 96360; 96361; 99285

== ENCOUNTER → 2024-02-11 | Outpatient (CLI) | payer MEDICARE ==
--- NOTE | 2024-02-12 11:09 | MM ---
Reason for Exam: Screening (asymptomatic). Last mammogram was performed 2 year(s) and 5 month(s) ago. Patient History: Menarche at age 10. First Full-Term at age 16. Postmenopausal. Patient used Estrogen for 2 years. Patient used Hormonal Contraceptives for 3 years. Risk Values: Anabell 5 year model risk: 1.3%. NCI Lifetime model risk: 2.8%. Prior Study Comparison: 04/15/2019 Bilateral Screening Mammogram, [facility]. 06/08/2020 Bilateral Screening Mammogram, [facility]. 09/16/2021 Bilateral Screening Mammogram, [facility]. Tissue Density: The breasts are heterogeneously dense, which may obscure small masses. Findings: Analyzed By CAD. There is no suspicious group of microcalcifications or new suspicious mass in either breast. Bilateral vascular calcifications. Overall Assessment: Benign, BI-RAD 2 Management: Screening Mammogram of both breasts in 1 year. . Patient should continue monthly self-breast exams. A clinical breast exam by your physician is recommended on an annual basis. This exam should not preclude additional follow-up of suspicious palpable abnormalities. Note on Anabell scores and lifetime risk: 1. A Anabell score greater than 3% is considered moderate risk. If this is the case, consider specialist referral to assess eligibility for a risk reducing agent. 2. If overall lifetime risk for the development of breast cancer is 20% or higher, the patient may qualify for future screening with alternating mammogram and breast MRI. Electronically signed and approved by: Ayo Aleman M.D. Radiologis
== END | disposition home or self-care (01) ==
LOC: RADMAMWWP 15:22
PROVIDERS: ATTEND Obstetrics & Gynecology
DX: Z12.31 Encounter for screening mammogram for malignant neoplasm of breast (principal); Z78.0 Asymptomatic menopausal state
CPT/HCPCS: 77063; 77067